=== PATIENT | male | born 1940 | race African-American/Black ===

== ENCOUNTER 2016-07-06 14:59 | Inpatient (IN) | payer OTHER ==
[~2016-07-06] VITALS: Ht 180.3 cm; Wt 103.5 kg
[~2016-07-06 14:59] MED LIST: ALLO300T PO; AMIO200T2 PO; AMLO10TA2 PO; BISA-42 PO; CALC0.25 PO; CARV25TA2 PO; CEFP200T PO; CHOL10002 PO; DEX; DILT120C97 PO; DOXY100T PO; FINA5TAB4 PO; FLUT12AE IH; FOLI1CAP10 PO; FURO40TA4 PO; GLYB5TAB3 PO; GUAI600T38 PO; HYDR-2678 PO; HYDR-2868 PO; INSU100V13 SQ; INSULIN; LOSA100T6 PO; METO25TA4 PO; PARI1CAP PO; POTA10CA PO; SYMBICORT INH; TAMS0.4C2 PO; TERA10CA3 PO; VALS1TAB33 PO; VALS320T2 PO
--- NOTE | 2016-07-06 16:05 | RAD ---
Indication: Syncopal episode today. Technique: Noncontrast CT head was obtained. Comparison is from May 17, 2015. One or more of the following individualized dose reduction techniques were utilized for this examination: 1. Automated exposure control 2. Adjustment of the mA and/or kV according to patient size 3. Use of iterative reconstruction technique Findings: There is a new area of decreased attenuation involving guadalupe and white matter in the right parietal lobe, approximately 2.5 cm in size, suspicious for subacute infarct. There is no hemorrhagic transformation. There is brain parenchymal volume loss and minimal probable small vessel ischemic disease. The ventricles and sulci are within normal limits for age. Paranasal sinuses and mastoid air cells are clear. Report was called to Dr. Quick at 1601 hours. Impression: New area of decreased attenuation in the right prior lobe suspicious for subacute infarct. No evidence of hemorrhagic transformation. This finding is a change from April. Consider MRI.
[2016-07-06 16:11] LABS: BASO % 0 % (0-3); EOS % 8 % (0-3); HEMATOCRIT 42.4 % (39.0-53.0); HEMOGLOBIN 13.3 g/dL (13.0-17.5); LYMPH # 2.4 x10^3/uL (1.0-4.8); LYMPH % 26 % (24-48); MEAN CORPUSCULAR HEMOGLOBIN 24 pg (25-35); MEAN CORPUSCULAR HGB CONC 31 g/dL (31-37); MEAN CORPUSCULAR VOLUME 77 fL (79-100); MONO % 10 % (0-9); NEUT % 56 % (31-73); PLATELET COUNT 235 x10^3/uL (140-400); RED BLOOD COUNT 5.53 x10^6/uL (4.30-5.70); RED CELL DISTRIBUTION WIDTH 20.5 % (11.5-14.5)
--- NOTE | 2016-07-06 16:23 | PHYS DOC ---
Past Medical History Past Medical History: A-Fib, Diabetes-Type II, Heart Disease, Hypertension, Renal Failure Past Surgical History: Pacemaker, Other Additional Past Surgical Histo: RIGHT ARM A/V FISTULA Alcohol Use: None Drug Use: None Adult General Chief Complaint Chief Complaint: SYNCOPE HPI HPI Patient is a 75 year old male brought by ambulance to the ED after what sounds like a syncopal episode at home. Patient was feeling fine and was seated in his living room and he needed to self catheterize, which he commonly does. He seemed to be having trouble, as described by the patient and his , he may have been a bit confused, his hands weren't working right, he couldn't get a hold of the catheter or his penis, he was fumbling around. He decided to go to the bathroom and it sounds like he was able to ambulate with his usual gait to the bathroom and sat on the toilet, again had some trouble with coordination of his hands, his hands were shaking, describes that his eyes rolled back in his head and he was unresponsive. called 911. He also vomited all over himself. Paramedics report initially the patient was unconscious but by the time they were in route, the patient had regained consciousness and reportedly was GCS 14 with mild confusion. Patient states once before, he did have a "insulin coma," but has not had episodes like this otherwise. No history of syncope or seizures. Patient was hospitalized for several weeks, released in March or April, for urosepsis. Patient is a dialysis patient with a fistula in his right arm, he dialyzes on Thursday and Thursday. Yesterday was Thursday and he did go to dialysis and had no complications. Patient reports that prior to having this episode today, his left hand felt itchy but it did not appear to be red or swollen, and it is no longer itchy. He also reports some pain in his left upper arm earlier today and possibly yesterday, his rubbed it. No chest pain. Patient reports a history of atrial fibrillation, he has a pacemaker. PCP Dr. Higgins Urologist Dr. Solo Review of Systems Review of Systems Constitutional: Denies fever or chills [] Eyes: Denies change in visual acuity, redness, or eye pain [] HENT: Denies nasal congestion or sore throat [] Respiratory: Denies cough or shortness of breath [] Cardiovascular: Denies chest pain GI: Denies abdominal pain, nausea, vomiting, bloody stools or diarrhea [] : Denies dysuria or hematuria , as in history of present illness he self catheterizes multiple times a day Musculoskeletal: As in history of present illness Integument: Denies rash or skin lesions [] Neurologic: Denies headache, otherwise as in history of present illness Current Medications Current Medications Current Medications Medications (Trade) Dose Ordered Sig/[place] Start Time Stop Time Status Last Admin Dose Admin Diltiazem HCl (Cardizem 24hr Cd) 240 mg DAILY 07/06/16 19:00 07/06/16 19:05 240 MG Metoprolol Tartrate (Lopressor) 12.5 mg 1X ONCE 07/06/16 18:45 07/06/16 18:48 DC 07/06/16 19:01 12.5 MG Allergies Allergies Allergies Coded Allergies Type Severity Reaction Last Updated Verified sitagliptin Allergy Intermediate Hives 02/27/16 Yes metformin Adverse Reaction Intermediate STOMACH UPSET 02/27/16 Yes Physical Exam Physical Exam Constitutional: Well developed, well nourished, no acute distress, non-toxic appearance. Alert, mentating normally, GCS 15 at the time I visited patient. HENT: Normocephalic, atraumatic, bilateral external ears normal, oropharynx moist, no oral exudates, nose normal. No facial asymmetry. Eyes: conjunctiva normal, no discharge. [] Neck: Normal range of motion, no stridor. [] Cardiovascular:Heart irregularly irregular Lungs & Thorax: Bilateral breath sounds clear to auscultation [] Abdomen: Bowel sounds normal, soft, no tenderness, no masses, no pulsatile masses. [] Skin: Warm, dry, no erythema, no rash. [] Extremities: No tenderness, no cyanosis, no clubbing, ROM intact, no edema. [] Neurologic: Alert and oriented X 3, normal motor function, normal sensory function, no focal deficits noted. Moving both hands without deficit. Current Patient Data Vital Signs Vital Signs Date Time Temp Pulse Resp B/P Pulse Ox O2 Delivery O2 Flow Rate FiO2 07/06/16 19:05 75 155/67 07/06/16 18:49 16 97 07/06/16 18:00 Room Air 07/06/16 15:05 98.8 98.8 Lab Values Laboratory Tests Test 07/06/16 16:00 07/06/16 17:50 White Blood Count 9.0x10^3/uL (4.0-11.0) Red Blood Count 5.53x10^6/uL (4.30-5.70) Hemoglobin 13.3g/dL (13.0-17.5) Hematocrit 42.4% (39.0-53.0) Mean Corpuscular Volume 77fL (79-100) L Mean Corpuscular Hemoglobin 24pg (25-35) L Mean Corpuscular Hemoglobin Concent 31g/dL (31-37) Red Cell Distribution Width 20.5% (11.5-14.5) H Platelet Count 235x10^3/uL (140-400) Neutrophils (%) (Auto) 56% (31-73) Lymphocytes (%) (Auto) 26% (24-48) Monocytes (%) (Auto) 10% (0-9) H Eosinophils (%) (Auto) 8% (0-3) H Basophils (%) (Auto) 0% (0-3) Neutrophils # (Auto) 5.0x10^3uL (1.8-7.7) Lymphocytes # (Auto) 2.4x10^3/uL (1.0-4.8) Monocytes # (Auto) 0.9x10^3/uL (0.0-1.1) Eosinophils # (Auto) 0.7x10^3/uL (0.0-0.7) Basophils # (Auto) 0.0x10^3/uL (0.0-0.2) Platelet Estimate Adequate (ADEQUATE) Hypochromasia Slight Anisocytosis Slight Microcytosis Slight Sodium Level 142mmol/L (136-145) Potassium Level 5.0mmol/L (3.5-5.1) Chloride Level 103mmol/L (98-107) Carbon Dioxide Level 24mmol/L (21-32) Anion Gap 15 (6-14) H Blood Urea Nitrogen 32mg/dL (8-26) H Creatinine 6.5mg/dL (0.7-1.3) H Estimated GFR (Cockcroft-Gault) 10.2 BUN/Creatinine Ratio 5 (6-20) L Glucose Level 171mg/dL (70-99) H Calcium Level 10.0mg/dL (8.5-10.1) Magnesium Level 2.1mg/dL (1.8-2.4) Total Bilirubin 0.3mg/dL (0.2-1.0) Aspartate Amino Transferase (AST) 24U/L (15-37) Alanine Aminotransferase (ALT) 29U/L (16-63) Alkaline Phosphatase 72U/L (46-116) Troponin I Quantitative 0.038ng/mL (0.000-0.055) Total Protein 8.7g/dL (6.4-8.2) H Albumin 3.4g/dL (3.4-5.0) Albumin/Globulin Ratio 0.6 (1.0-1.7) L Urine Collection Type U cath Urine Color Yellow Urine Clarity Cloudy Urine pH 7.5 Urine Specific [place] 1.015 Urine Protein >=300mg/dL (NEG-TRACE) Urine Glucose (UA) 100mg/dL (NEG) Urine Ketones (Stick) Negativemg/dL (NEG) Urine Blood Large (NEG) Urine Nitrite Negative (NEG) Urine Bilirubin Negative (NEG) Urine Urobilinogen Dipstick 0.2mg/dL (0.2 mg/dL) Urine Leukocyte Esterase Large (NEG) Urine RBC 3-5/HPF (0-2) Urine WBC Tntc/HPF (0-4) Urine Squamous Epithelial Cells Many/LPF Urine Transitional Epithelial Cells Occ/LPF Urine Renal Epithelial Cells Occ/LPF Urine Bacteria Few/HPF (0-FEW) Urine Mucus Marked/LPF Laboratory Tests 07/06/16 16:00 Laboratory Tests 07/06/16 16:00 EKG EKG 12-lead EKG read by me. Atrial fibrillation. Heart rate 103. There are no acute ST or T wave changes indicative of ischemia or infarction. Nonspecific interventricular conduction delay with slightly widened QRS. No STEMI. 1506 [] Radiology/Procedures Radiology/Procedures CT scan of the head read by the radiologist. I was called by the radiologist to told me that the patient has a right parietal subacute infarct which could be 12 -36 hours old or up to a week old. This is a new finding compared to April of this year. One view portable chest x-ray read by me. Heart size normal. Lung marquez are clear. No acute cardiopulmonary abnormality. Note is made of the pacemaker. [] Course & Med Decision Making Course & Med Decision Making Pertinent Labs and Imaging studies reviewed. (See chart for details) 75-year-old male, who is diabetic and a dialysis patient, presents by EMS after some type of episode at home where he was completely unresponsive but came around prior to any intervention. Prior to the unresponsive episode he was noted to have possibly confusion and his hands shaking. What is described to me by the patient's does not necessarily sound like a seizure, however that would be in the differential for me. The patient has no recollection of any events prior to the episode, including the episode, and for a period of time after the episode. I discussed with the patient and his that we will get some tests done but likely plan to admit him and he is agreeable to that plan. CT scan of the head read by the radiologist who called me with the results. There is no acute bleed and no acute finding, however, the patient appears to have a right parietal infarct that is subacute, between 12 hours and 1-2 weeks old. Patient remained stable while in the ED with a normal mental status, no seizure activity, no other neurologic complaints. He watched TV with his and was comfortable and stable. Patient also did note that he appears to have bitten his tongue. This new information leads me to think he likely did have a seizure. When I talked some more with the patient and his , the patient's recalled that a few days ago he had an episode where his speech was slurred and thick. It didn't last very long, he took a nap and when he woke up he was better. This may have been the time that the infarct actually occurred. 75-year-old male who had an episode today that initially sounded like a possible syncopal episode but the more information I get I am suspicious of a possible seizure. His CT scan shows a subacute right parietal infarct which could be a seizure focus. At this point he is certainly well outside the window for TPA. He does not even have any active symptoms of a CVA. I discussed the case with Dr. Nails, [facility], who will admit the patient. I wrote bridge orders. [] Dragon Disclaimer Dragon Disclaimer This electronic medical record was generated, in whole or in part, using a voice recognition dictation system. Departure Departure Impression: Primary Impression: Seizure Additional Impression: Stroke Disposition: 09 ADMITTED INPATIENT Admitting Physician: Other Condition: STABLE Referrals: LARRY HIGGINS MD (PCP) Problem Qualifiers CAMILA SAWYER MD Jul 06, 2016 16:23
[2016-07-06 16:25] LABS: CREATININE 6.5 mg/dL (0.7-1.3); GFR 10.2
[2016-07-06 16:30] LABS: PLT ESTIMATE ADEQUATE (ADEQUATE)
[2016-07-06 16:32] LABS: ALBUMIN 3.4 g/dL (3.4-5.0); ALBUMIN/GLOBULIN RATIO 0.6 (1.0-1.7); HYPOCHROMIA SLIGHT; MAGNESIUM 2.1 mg/dL (1.8-2.4); TOTAL BILIRUBIN 0.3 mg/dL (0.2-1.0); TOTAL PROTEIN 8.7 g/dL (6.4-8.2)
[2016-07-06 16:33] LABS: ANISOCYTOSIS SLIGHT; MICROCYTOSIS SLIGHT
--- NOTE | 2016-07-06 16:35 | RAD ---
Indication: Syncopal episode today. Asthma. Technique: Upright portable chest radiograph was obtained. Comparison is from April 11, 2016. Findings: The lungs are clear. The heart is not enlarged. There is no heart failure. Pacemaker is noted. Leads overlie the patient. There is mild elevation of the right hemidiaphragm. Impression: No acute thoracic findings.
[2016-07-06 18:02] LABS: BILIRUBIN,URINE NEGATIVE (NEG); GLUCOSE,URINE 100 mg/dL (NEG); NITRITE,URINE NEGATIVE (NEG); PH,URINE 7.5; PROTEIN,URINE >=300 mg/dL (NEG-TRACE); UROBILINOGEN,URINE 0.2 mg/dL (0.2 mg/dL)
[2016-07-06 18:13] LABS: BACTERIA,URINE FEW /HPF (0-FEW); SQUAMOUS EPITHELIAL CELL,UR MANY /LPF; WBC,URINE TNTC /HPF (0-4)
[2016-07-06] MEDS ORDERED: AMIO200T2 PO (18:39)
[2016-07-06] MEDS ORDERED: POTA20TA4 PO (18:39)
[2016-07-06] MEDS ORDERED: GLYB5TAB3 PO (18:39)
[2016-07-06] MEDS ORDERED: HYDR-2868 PO (18:39)
[2016-07-06] MEDS ORDERED: AMLO10TA2 PO (18:39)
[2016-07-06] MEDS ORDERED: LOSA100T6 PO (18:39)
[2016-07-06] MEDS ORDERED: METOPROLOL TART IMMED RELEASE 25 MG TABLET PO ONE (18:45)
[2016-07-06] MEDS: DILTIAZEM HCL 240 MG CAP.ER.24H PO SCH (19:05)
[2016-07-06 20:29] VITALS: BP 151/76
[2016-07-06] MEDS ORDERED: TAMS0.4C97 PO (21:26)
[2016-07-06] MEDS ORDERED: FINA5TAB PO (21:26)
[2016-07-06] MEDS ORDERED: INSU100V13 SQ (21:26)
[2016-07-06] MEDS ORDERED: ASPI81TA2 PO (21:26)
--- NOTE | 2016-07-06 21:33 | ACF ---
Admit Criteria Forms Admit Criteria Forms Admit Criteria Forms SEIZURE Clinical Indications for Admission to Inpatient Care (Place 'X' for any and all applicable criteria): Admission is indicated for seizure and ANY ONE of the following(1)(2)(3)(4)(5): [ ]I. Inpatient admission required rather than observation care (Also use Seizure: Observation Care Criteria as appropriate) because of ANY ONE of the following: [ ]a) Altered mental status that is severe or persistent [ ]b) New focal neurologic deficit that is severe or persistent [ ]c) Metabolic disorder (eg, hypoglycemia, hyponatremia) that is severe or persistent [ ]d) Recurrent seizure [ ]e) Outpatient antiseizure regimen cannot be established (eg , patient cannot tolerate medication, initiation requires inpatient care) [ ]f) Need for ongoing intravenous infusion of antiseizure medication [ ]g) Cardiac arrhythmias of immediate concern [ ]h) Cerebral bleeding, hydrocephalus, or vasospasm monitoring (14) [ ]i) Increased intracranial pressure or cerebral edema monitoring (15) [ ]j) Other treatment or monitoring requiring inpatient admission [ ]II. Status epilepticus [A] or repetitive seizures not controlled with emergent treatment (6)(8) [ ]III. Brain disorder (eg, tumor, edema, and hydrocephalus) that requiring monitoring or intervention available only at inpatient level of care. [X]IV. Brain insult (eg, severe trauma, stroke, drug toxicity, or withdrawal) that requires monitoring or intervention available only at inpatient level of care (10)(11) Extended stay beyond goal length of stay may be needed for (22) [ ]a) Complications of status epilepticus [ ]b) Refractory status epilepticus [ ]c) Etiology-specific therapy for conditions such as DISCHARGING MACHINE OPERATOR infection, head injury,eclampsia, severe metabolic abnormalities, and brain tumor [ ]d) Residual neurologic damage, [ ]e) Initiation of significant change to anticonvulsant treatment [ ]f) Older patients (65 years or older) [ ]g) Patient requiring intubation (eg, to protect airway) The original [employer] content created by [email or web address] has been revised. The portions of the content which have been revised are identified through the use of italic text or in bold, and [employer] [email or web address] has neither reviewed nor approved the modified material. All other unmodified content is copyright [facility] [employer]. Please see references footnoted in the original [facility] edition 2016 AG FELIX Jul 06, 2016 21:33
[2016-07-06] MEDS ORDERED: DEXTROSE 50% 25 GM / 50ML DISP.SYRIN. IV PRN (21:45)
[2016-07-06] MEDS ORDERED: NON FORMULARY ITEM (Fluticasone Propionate (Flovent 110MCG Hfa) 2 PUFF) IH PRN (22:45)
[2016-07-06] MEDS ORDERED: SYMBICORT INH PRN (22:45)
[2016-07-06] MEDS ORDERED: BENZOCAINE 10% ORAL GEL 7GM TUBE. TP PRN (23:00)
[2016-07-06] MEDS ORDERED: BENZOCAINE 7.5% TP PRN (23:09)
[2016-07-06 23:10] VITALS: BP 160/71
[2016-07-06] MEDS: TAMSULOSIN 0.4 MG CAP.ER.24H. PO SCH (23:15)
[2016-07-06] MEDS ORDERED: ACETAMINOPHEN 325 MG TABLET. PO PRN (23:15)
[2016-07-06] MEDS: METOPROLOL TART IMMED RELEASE 25 MG TABLET PO SCH (23:16)
--- NOTE | 2016-07-07 00:32 | HP ---
ADMIT DATE: 07/06/2016 CHIEF COMPLAINT: Syncope. HISTORY OF PRESENT ILLNESS: The patient is a 75-year-old -[place] gentleman who was with past medical history of end-stage renal disease, atrial fibrillation, who presented via EMS after a syncopal episode at home. His and he relate that he typically self caths several times a day because of urinary retention. He was about to do this when he was rather confused, could not get his hands to work properly. He tried to go to the bathroom to do it, his going with him to help. When he seemed to lose consciousness while sitting on the toilet, eyes rolling back and noted posturing of his right arm. She tried to prop him up and talk to him, he was unresponsive. She called EMS. By the time EMS had him worked up, he was actually responding normally and does remember events from there on out. He apparently bit his tongue during the episode. He vomited copiously. While he initially was reported to be completely obtunded, he came to in the fairing man care and by the time he presented to the Emergency Room, had only mild confusion. This completely resolved spontaneously. Of note, patient actually had been admitted recently for urosepsis. In addition to the symptoms described above, his episode also had an abnormal feeling that he actually recollects in his left arm and hand that he describes as an itch that he just could not get to. He denied any chest pain, any shortness of breath during the episode. PAST MEDICAL HISTORY: CAD, AFib, status post pacer placement, diabetes 2, hypertension, end-stage renal disease, previously on peritoneal dialysis leading to bacteremia, currently on hemodialysis via fistula in right arm. Urinary retention, self cathing for the past year. Being followed by Dr. Solo. FAMILY HISTORY: Positive for diabetes and heart disease. SOCIAL HISTORY: He is and living with his . No toxic habits. ALLERGIES: METFORMIN AND SITAGLIPTIN. MEDICATIONS: MAR reconciled with home medications. REVIEW OF SYSTEMS: Positive as per HPI. Currently, he feels completely normal. All his symptoms have completely resolved including his hand and arm symptoms. Rest of organ system review is negative. He has had 1 or 2 loose bowel movements in the past couple of days, no diarrhea. PHYSICAL EXAMINATION: VITAL SIGNS: Show blood pressure of 151/76, heart rate of 79, respiratory rate at 18. Of note, at time of admission, blood pressure actually had been 171/87 with a pulse of 104. GENERAL: This is an obese, 75-year-old, -[place] gentleman, alert and oriented, in no acute distress. HEENT: Shows no scleral icterus. NECK: Supple, without any lymphadenopathy. LUNGS: Clear to auscultation bilaterally. CARDIOVASCULAR: Slightly irregular. ABDOMEN: Positive bowel sounds, soft, nontender. EXTREMITIES: Showed no edema, no clubbing, no cyanosis. SKIN: Small, soft and dry without any rash. LABORATORY DATA: CBC from today shows WBC of 9.0, hemoglobin 13.3, MCV of 77 with a platelet count of 235. Chemistries with a BUN and creatinine of 32 and 6.5. Electrolytes within normal limits. Glucose at 171. LFTs within normal. Initial troponin is 0.038, albumin at 3.4. Urine with few bacteria, TNTC wbc. RADIOGRAPHIC FINDINGS: Chest x-ray shows mild elevation of the right hemidiaphragm, no acute findings. CT of the head shows a new area of decreased attenuation in the right parietal lobe suspicious for subacute infarct. No evidence of hemorrhagic transformation. Finding is a change from April. ASSESSMENT AND PLAN: The patient is a 75-year-old gentleman with a syncopal finding. Given the MRI with a recent subacute stroke which apparently was unnoticed by the patient and my suspicion is that this is once again neurological, possible TIA as symptoms resolved by the time he arrived in the Emergency Room. However, cannot rule out arrhythmia, possible cardiac etiology of his symptoms either, especially with past medical history. We will rule him out. Unfortunately, secondary to his end-stage renal disease, gadolinium is contraindicated for an MRI. We will discuss with Dr. Hsu from Neurology in the morning if the MRI is indicated without contrast. 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 Blair, of his admission as well for followup. Diabetes, currently seems to be fairly well controlled. We will continue home regimen plus insulin sliding scale. All other medications will be continued as well. He has a routine followup appointment with Dr. Solo in a couple of days. We will let Dr. Solo know of his presence here. Should he be discharged before his appointment, he can follow up on an outpatient basis. ZACH SINGH MD DR: Deena JOB#: [id number] / [id number] SYDNEY
[2016-07-07 03:00] VITALS: BP 141/68
[2016-07-07 05:29] LABS: BASO % 0 % (0-3); EOS % 13 % (0-3); HEMATOCRIT 36.9 % (39.0-53.0); HEMOGLOBIN 11.3 g/dL (13.0-17.5); LYMPH # 2.5 x10^3/uL (1.0-4.8); LYMPH % 27 % (24-48); MEAN CORPUSCULAR HEMOGLOBIN 24 pg (25-35); MEAN CORPUSCULAR HGB CONC 31 g/dL (31-37); MEAN CORPUSCULAR VOLUME 78 fL (79-100); MONO % 13 % (0-9); NEUT % 48 % (31-73); PLATELET COUNT 211 x10^3/uL (140-400); RED BLOOD COUNT 4.72 x10^6/uL (4.30-5.70); RED CELL DISTRIBUTION WIDTH 20.6 % (11.5-14.5); WHITE BLOOD COUNT 9.4 x10^3/uL (4.0-11.0)
[2016-07-07 05:54] LABS: CALCIUM 9.4 mg/dL (8.5-10.1); CREATININE 7.5 mg/dL (0.7-1.3); GFR 8.7; POTASSIUM 4.8 mmol/L (3.5-5.1)
--- NOTE | 2016-07-07 06:07 | EKG ---
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
[2016-07-07 07:00] VITALS: BP 136/67
[2016-07-07] MEDS: INSULIN ASPART 300 UNITS/3 ML INSULN.PEN SQ SCH ×4 (07:30→21:19)
[2016-07-07] MEDS: ALBUTEROL SULFATE 2.5 MG/3 ML NEBU. NEB SCH ×2 (07:53→11:46)
[2016-07-07] MEDS ORDERED: BUDESONIDE 0.5 MG/2 ML NEBU NEB SCH (08:00)
[2016-07-07 08:30] LABS: % BASOS 1 % (0-3); % EOS 10 % (0-5)
[2016-07-07 08:31] LABS: PLT ESTIMATE ADEQUATE (ADEQUATE)
[2016-07-07] MEDS: INSULIN DETEMIR 300 UNITS/3 ML INSULN.PEN. SQ SCH (09:00)
[2016-07-07] MEDS: FUROSEMIDE 40 MG TABLET PO SCH ×2 (09:09→15:58)
[2016-07-07] MEDS: FOLIC/VIT B COMP W-C (RENAL) TABLET. PO SCH (09:10)
[2016-07-07] MEDS: DILTIAZEM HCL 240 MG CAP.ER.24H PO SCH (09:10)
[2016-07-07] MEDS: TAMSULOSIN 0.4 MG CAP.ER.24H. PO SCH ×2 (09:10→21:13)
[2016-07-07] MEDS: ASPIRIN 81 MG TAB.CHEW PO SCH (09:10)
[2016-07-07] MEDS: FINASTERIDE 5 MG TABLET PO SCH (09:11)
[2016-07-07] MEDS: METOPROLOL TART IMMED RELEASE 25 MG TABLET PO SCH ×2 (09:11→21:14)
--- NOTE | 2016-07-07 09:16 | PDOC ---
SUBJECTIVE Subjective Pt. 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, does ISC TID Vital Signs Vital Signs Date Time Temp Pulse Resp B/P Pulse Ox O2 Delivery O2 Flow Rate FiO2 07/07/16 07:50 97 Room Air 07/07/16 07:00 98.2 70 18 136/67 97 Room Air 98.2 07/07/16 03:00 98.2 65 18 141/68 98 Room Air 98.2 07/06/16 23:16 71 160/71 07/06/16 23:10 98.7 71 20 160/71 96 Room Air 98.7 07/06/16 22:11 Room Air 07/06/16 20:29 97.6 79 18 151/76 95 Room Air 97.6 07/06/16 19:49 80 20 161/110 07/06/16 19:19 78 17 162/72 97 07/06/16 19:05 75 155/67 07/06/16 19:01 75 155/67 07/06/16 18:49 78 16 155/67 97 07/06/16 18:19 88 26 195/80 07/06/16 18:00 80 18 145/67 97 Room Air 07/06/16 17:19 84 18 154/67 97 Room Air 07/06/16 16:32 82 20 180/85 96 Room Air 07/06/16 16:19 72 20 173/92 96 Room Air 07/06/16 15:49 80 20 162/72 96 Room Air 07/06/16 15:05 98.8 104 20 171/87 97 Room Air 98.8 I & O Intake and Output 07/07/16 07:00 Intake Total 360 ml Output Total 50 ml Balance 310 ml Intake Oral 240 ml Tube Feeding 120 ml Output Urine Total 50 ml # Voids 1 PHYSICAL EXAM Physical Exam testes descended bilat, DOC-30 gms, smooth ASSESSMENT/PLAN Assessment/Plan Continue flomax and finasteride Continue ISC TID F/U urology 3 months Problems: COMMENT Lab Laboratory Tests Test 07/06/16 16:00 07/06/16 17:50 07/06/16 20:50 07/07/16 04:40 White Blood Count 9.0x10^3/uL (4.0-11.0) 9.4x10^3/uL (4.0-11.0) Red Blood Count 5.53x10^6/uL (4.30-5.70) 4.72x10^6/uL (4.30-5.70) Hemoglobin 13.3g/dL (13.0-17.5) 11.3g/dL (13.0-17.5) Hematocrit 42.4% (39.0-53.0) 36.9% (39.0-53.0) Mean Corpuscular Volume 77fL (79-100) 78fL (79-100) Mean Corpuscular Hemoglobin 24pg (25-35) 24pg (25-35) Mean Corpuscular Hemoglobin Concent 31g/dL (31-37) 31g/dL (31-37) Red Cell Distribution Width 20.5% (11.5-14.5) 20.6% (11.5-14.5) Platelet Count 235x10^3/uL (140-400) 211x10^3/uL (140-400) Neutrophils (%) (Auto) 56% (31-73) 48% (31-73) Lymphocytes (%) (Auto) 26% (24-48) 27% (24-48) Monocytes (%) (Auto) 10% (0-9) 13% (0-9) Eosinophils (%) (Auto) 8% (0-3) 13% (0-3) Basophils (%) (Auto) 0% (0-3) 0% (0-3) Neutrophils # (Auto) 5.0x10^3uL (1.8-7.7) 4.5x10^3uL (1.8-7.7) Lymphocytes # (Auto) 2.4x10^3/uL (1.0-4.8) 2.5x10^3/uL (1.0-4.8) Monocytes # (Auto) 0.9x10^3/uL (0.0-1.1) 1.2x10^3/uL (0.0-1.1) Eosinophils # (Auto) 0.7x10^3/uL (0.0-0.7) 1.2x10^3/uL (0.0-0.7) Basophils # (Auto) 0.0x10^3/uL (0.0-0.2) 0.0x10^3/uL (0.0-0.2) Platelet Estimate Adequate (ADEQUATE) Hypochromasia Slight Anisocytosis Slight Microcytosis Slight Sodium Level 142mmol/L (136-145) 145mmol/L (136-145) Potassium Level 5.0mmol/L (3.5-5.1) 4.8mmol/L (3.5-5.1) Chloride Level 103mmol/L (98-107) 106mmol/L (98-107) Carbon Dioxide Level 24mmol/L (21-32) 26mmol/L (21-32) Anion Gap 15 (6-14) 13 (6-14) Blood Urea Nitrogen 32mg/dL (8-26) 37mg/dL (8-26) Creatinine 6.5mg/dL (0.7-1.3) 7.5mg/dL (0.7-1.3) Estimated GFR (Cockcroft-Gault) 10.2 8.7 BUN/Creatinine Ratio 5 (6-20) Glucose Level 171mg/dL (70-99) 143mg/dL (70-99) Calcium Level 10.0mg/dL (8.5-10.1) 9.4mg/dL (8.5-10.1) Magnesium Level 2.1mg/dL (1.8-2.4) Total Bilirubin 0.3mg/dL (0.2-1.0) Aspartate Amino Transf (AST/SGOT) 24U/L (15-37) Alanine Aminotransferase (ALT/SGPT) 29U/L (16-63) Alkaline Phosphatase 72U/L (46-116) Troponin I Quantitative 0.038ng/mL (0.000-0.055) 0.080ng/mL (0.000-0.055) Total Protein 8.7g/dL (6.4-8.2) Albumin 3.4g/dL (3.4-5.0) Albumin/Globulin Ratio 0.6 (1.0-1.7) Urine Collection Type U cath Urine Color Yellow Urine Clarity Cloudy Urine pH 7.5 Urine Specific [place] 1.015 Urine Protein >=300mg/dL (NEG-TRACE) Urine Glucose (UA) 100mg/dL (NEG) Urine Ketones (Stick) Negativemg/dL (NEG) Urine Blood Large (NEG) Urine Nitrite Negative (NEG) Urine Bilirubin Negative (NEG) Urine Urobilinogen Dipstick 0.2mg/dL (0.2 mg/dL) Urine Leukocyte Esterase Large (NEG) Urine RBC 3-5/HPF (0-2) Urine WBC Tntc/HPF (0-4) Urine Squamous Epithelial Cells Many/LPF Urine Transitional Epithelial Cells Occ/LPF Urine Renal Epithelial Cells Occ/LPF Urine Bacteria Few/HPF (0-FEW) Urine Mucus Marked/LPF Glucose (Fingerstick) 110mg/dL (70-99) Test 07/07/16 07:35 07/07/16 08:08 Glucose (Fingerstick) 125mg/dL (70-99) 119mg/dL (70-99) NOLBERTO THOMPSON MD Jul 07, 2016 09:16
[2016-07-07 09:38] LABS: ANISOCYTOSIS MOD; HYPOCHROMIA SLIGHT; MICROCYTOSIS PRESENT; OVALOCYTES FEW
--- NOTE | 2016-07-07 10:08 | PDOC2 ---
XUANDIAMOND SAAVEDRA DIRECT MARKETING MANAGER 07/07/16 1008: CARDIAC CONSULT DATE OF CONSULT Date of Consult DATE: 07/07/16 TIME: 10:07 REASON FOR CONSULT Reason for Consult: syncope REFERRING PHYSICIAN Referring Physician: Dr. Roya Nails SOURCE Source: Caregiver (), Chart review, Patient HISTORY OF PRESENT ILLNESS HISTORY OF PRESENT ILLNESS 75 year old male who was seated on toilet yesterday after breakfast and was to self-cath for known urinary retention when he became confused regarding the steps/skills for the task. Also noted tingling/itching in his left hand. He remembers his talking to him. ? of seizure as eyes rolled back and patient bit his tongue. CT scan of brain demonstrating new area in the right parietal area. Patient denies associated chest pain or dyspnea. No recurrence of symptoms since hospitalized. No previous similar symptoms. Initial troponin levels not consistent with AMI and associated with Cr of 7.5. EKG with atrial fibrillation with controlled ventricular rate. Hypertensive with BP of 180/85. Reason for Visit: syncope PAST MEDICAL HISTORY Cardiovascular: AFIB, CAD (?), HTN, Hyperlipidemia, Other (tachybrady, 2nd degree AVB, type II; Biotronik dual chamber PPM - NOT MRI COMPATIBLE) GI: GI bleed (due to duodenal ulcer treated wtih endotherapy) Musculoskeletal: Osteoarthritis Renal/: Chronic renal failure (with hemodialysis), Other (urinary retention with self-catheterization ) Endocrine: Diabetes (type II) PAST SURGICAL HISTORY Past Surgical History: Pacemaker (dual chamber Biotronik), Other (implant/ explant peritoneal dialysis catheter; right AV fistula) FAMILY HISTORY Family History: Diabetes SOCIAL HISTORY Smoke: No ALCOHOL: none Drugs: None Lives: with Family () CURRENT MEDICATIONS CURRENT MEDICATIONS Current Medications Medications (Trade) Dose Ordered Sig/[place] Route PRN Reason Start Time Stop Time Status Last Admin Dose Admin Diltiazem HCl (Cardizem 24hr Cd) 240 mg DAILY PO 07/06/16 19:00 07/07/16 09:10 Metoprolol Tartrate (Lopressor) 12.5 mg 1X ONCE PO 07/06/16 18:45 07/06/16 18:48 DC 07/06/16 19:01 Aspirin (Children'S Aspirin) 81 mg DAILY PO 07/07/16 09:00 07/07/16 09:10 Finasteride (Proscar) 10 mg DAILY PO 07/07/16 09:00 07/07/16 09:11 Furosemide (Lasix) 40 mg [id number] PO 07/07/16 09:00 07/07/16 09:09 Metoprolol Tartrate (Lopressor) 12.5 mg BID PO 07/06/16 23:00 07/07/16 09:11 Tamsulosin HCl (Flomax) 0.4 mg BID PO 07/06/16 23:00 07/07/16 09:10 Vitamin B Complex/ Vitamin C (Nephro-Jeanmarie) 1 tab DAILY PO 07/07/16 09:00 07/07/16 09:10 Benzocaine (Ora-Jel Baby) 1 antwon PRN QID PRN TP ORAL PAIN 07/06/16 23:09 07/06/16 23:16 ALLERGIES ALLERGIES: Coded Allergies: sitagliptin (Verified Allergy, Intermediate, Hives, 02/27/16) metformin (Verified Adverse Reaction, Intermediate, STOMACH UPSET, 02/27/16 ) ROS Review of System 14 point review with pertinent positives in HPI PHYSICAL EXAM General: Alert, Oriented X3, Cooperative, No acute distress HEENT: Atraumatic, PERRLA Lungs: Clear to auscultation Heart: Regular rate, Normal S1, Normal S2, No murmurs, Other (PPM left pectoral region well healed) Abdomen: Normal bowel sounds, Soft Extremities: No edema, Normal pulses Skin: No rashes Neuro: Normal speech Psych/Mental Status: Mental status NL, Mood NL MUSCULOSKELETAL: Osteoarthritic changes both hands VITALS VITALS Vital Signs Date Time Temp Pulse Resp B/P Pulse Ox O2 Delivery O2 Flow Rate FiO2 07/07/16 09:11 70 136/67 07/07/16 08:00 Room Air 07/07/16 07:50 97 07/07/16 07:00 98.2 18 98.2 LABS Lab: Laboratory Tests Test 07/06/16 16:00 07/06/16 17:50 07/06/16 20:50 07/07/16 04:40 White Blood Count 9.0x10^3/uL (4.0-11.0) 9.4x10^3/uL (4.0-11.0) Red Blood Count 5.53x10^6/uL (4.30-5.70) 4.72x10^6/uL (4.30-5.70) Hemoglobin 13.3g/dL (13.0-17.5) 11.3g/dL (13.0-17.5) Hematocrit 42.4% (39.0-53.0) 36.9% (39.0-53.0) Mean Corpuscular Volume 77fL (79-100) 78fL (79-100) Mean Corpuscular Hemoglobin 24pg (25-35) 24pg (25-35) Mean Corpuscular Hemoglobin Concent 31g/dL (31-37) 31g/dL (31-37) Red Cell Distribution Width 20.5% (11.5-14.5) 20.6% (11.5-14.5) Platelet Count 235x10^3/uL (140-400) 211x10^3/uL (140-400) Neutrophils (%) (Auto) 56% (31-73) 48% (31-73) Lymphocytes (%) (Auto) 26% (24-48) 27% (24-48) Monocytes (%) (Auto) 10% (0-9) 13% (0-9) Eosinophils (%) (Auto) 8% (0-3) 13% (0-3) Basophils (%) (Auto) 0% (0-3) 0% (0-3) Neutrophils # (Auto) 5.0x10^3uL (1.8-7.7) 4.5x10^3uL (1.8-7.7) Lymphocytes # (Auto) 2.4x10^3/uL (1.0-4.8) 2.5x10^3/uL (1.0-4.8) Monocytes # (Auto) 0.9x10^3/uL (0.0-1.1) 1.2x10^3/uL (0.0-1.1) Eosinophils # (Auto) 0.7x10^3/uL (0.0-0.7) 1.2x10^3/uL (0.0-0.7) Basophils # (Auto) 0.0x10^3/uL (0.0-0.2) 0.0x10^3/uL (0.0-0.2) Platelet Estimate Adequate (ADEQUATE) Adequate (ADEQUATE) Hypochromasia Slight Slight Anisocytosis Slight Mod Microcytosis Slight Present Sodium Level 142mmol/L (136-145) 145mmol/L (136-145) Potassium Level 5.0mmol/L (3.5-5.1) 4.8mmol/L (3.5-5.1) Chloride Level 103mmol/L (98-107) 106mmol/L (98-107) Carbon Dioxide Level 24mmol/L (21-32) 26mmol/L (21-32) Anion Gap 15 (6-14) 13 (6-14) Blood Urea Nitrogen 32mg/dL (8-26) 37mg/dL (8-26) Creatinine 6.5mg/dL (0.7-1.3) 7.5mg/dL (0.7-1.3) Estimated GFR (Cockcroft-Gault) 10.2 8.7 BUN/Creatinine Ratio 5 (6-20) Glucose Level 171mg/dL (70-99) 143mg/dL (70-99) Calcium Level 10.0mg/dL (8.5-10.1) 9.4mg/dL (8.5-10.1) Magnesium Level 2.1mg/dL (1.8-2.4) Total Bilirubin 0.3mg/dL (0.2-1.0) Aspartate Amino Transf (AST/SGOT) 24U/L (15-37) Alanine Aminotransferase (ALT/SGPT) 29U/L (16-63) Alkaline Phosphatase 72U/L (46-116) Troponin I Quantitative 0.038ng/mL (0.000-0.055) 0.080ng/mL (0.000-0.055) Total Protein 8.7g/dL (6.4-8.2) Albumin 3.4g/dL (3.4-5.0) Albumin/Globulin Ratio 0.6 (1.0-1.7) Urine Collection Type U cath Urine Color Yellow Urine Clarity Cloudy Urine pH 7.5 Urine Specific [place] 1.015 Urine Protein >=300mg/dL (NEG-TRACE) Urine Glucose (UA) 100mg/dL (NEG) Urine Ketones (Stick) Negativemg/dL (NEG) Urine Blood Large (NEG) Urine Nitrite Negative (NEG) Urine Bilirubin Negative (NEG) Urine Urobilinogen Dipstick 0.2mg/dL (0.2 mg/dL) Urine Leukocyte Esterase Large (NEG) Urine RBC 3-5/HPF (0-2) Urine WBC Tntc/HPF (0-4) Urine Squamous Epithelial Cells Many/LPF Urine Transitional Epithelial Cells Occ/LPF Urine Renal Epithelial Cells Occ/LPF Urine Bacteria Few/HPF (0-FEW) Urine Mucus Marked/LPF Glucose (Fingerstick) 110mg/dL (70-99) Segmented Neutrophils % 60% (35-66) Lymphocytes % 17% (24-48) Atypical Lymphocytes % (Manual) 1% (0-0) Monocytes % 11% (0-10) Eosinophils % 10% (0-5) Basophils % 1% (0-3) Ovalocytes Few Test 07/07/16 07:35 07/07/16 08:08 Glucose (Fingerstick) 125mg/dL (70-99) 119mg/dL (70-99) IMAGES IMAGES CXR: 07/06/2016: Findings: The lungs are clear. The heart is not enlarged. There is no heart failure. Pacemaker is noted. Leads overlie the patient. There is mild elevation of the right hemidiaphragm. Impression: No acute thoracic findings. CT head: 07/06/2016 Findings: There is a new area of decreased attenuation involving guadalupe and white matter in the right parietal lobe, approximately 2.5 cm in size, suspicious for subacute infarct. There is no hemorrhagic transformation. There is brain parenchymal volume loss and minimal probable small vessel ischemic disease. The ventricles and sulci are within normal limits for age. Paranasal sinuses and mastoid air cells are clear. Report was called to Dr. Quick at 1601 hours. Impression: New area of decreased attenuation in the right prior lobe suspicious for subacute infarct. No evidence of hemorrhagic transformation. This finding is a change from April. Consider MRI. EKG EKG atrial fib, rate controlled, no acute changes ECHOCARDIOGRAM ECHOCARDIOGRAM 02/19/2016: SANTIAGO: Technically difficult study. The left ventricle is normal size. The left ventricular systolic function is normal and the ejection fraction is within normal range. The Ejection Fraction is 55-60%. There is mild concentric left ventricular hypertrophy. There is no significant aortic valvular stenosis. Doppler and Color Flow revealed no significant aortic regurgitation. Doppler and Color Flow revealed trace mitral regurgitation. Doppler and Color Flow revealed trace tricuspid valve regurgitation. ASSESSMENT/PLAN ASSESSMENT/PLAN 1. atrial fibrillation/tachydysrhythmias dual chamber PPM - Biotronik - NOT MRI COMPATIBLE interrogation PPM - has had high afib burdens in the past [id number] = 5 now; high risk for stroke; OAC stopped 2014 after duodenal ulcer bleed and was treated by GI and has been on only ASA 81 mg since then- ? resume OAC echo to evaluate for clot 2. subacute right parietal stroke ? due to atrial fib per Neuro 3. HTN improved control 4. ESRD with HD per nephrology PPM interrogation: atrial fib burden since 02/18/2016 of 61%; has been in atrial fib 100% of the time for at least the last week Will increase BB in effort to control rate; also on diltiazem GI consult to determine if OAC can be resumed Problems: ELENA REYNOLDS MD 07/07/16 1646: CARDIAC CONSULT ALLERGIES ALLERGIES: Coded Allergies: sitagliptin (Verified Allergy, Intermediate, Hives, 02/27/16) metformin (Verified Adverse Reaction, Intermediate, STOMACH UPSET, 02/27/16 ) ASSESSMENT/PLAN ASSESSMENT/PLAN Patient seen and examined. Agree with POST DOCTORAL FELLOW's assessment and plan. Patient with right acute parietal stroke probably embolic. Continue workup per neurology team. Pacemaker interrogation showed significant atrial fibrillation burden. Agree with increasing beta marietta dose for better rate control. If okay with gastroenterology team, we will initiate oral and a combination followed by antiarrhythmic therapy. 2-D echo showed normal LV systolic function. Continue hemodialysis per nephrology team. Thank you for your consultation. Problems: DIAMOND CHAMBERS APRN Jul 07, 2016 10:08 ELENA REYNOLDS MD Jul 07, 2016 16:46
[2016-07-07 11:00] VITALS: BP 144/67
--- NOTE | 2016-07-07 11:22 | PDOC2 ---
CONSULT Date of Consult Date of Consult DATE: 07/07/16 TIME: 11:20 Reason for Consult Reason for Consult: ESRD Referring Physician Referring Physician: Dr Nails Identification/Chief Complaint Chief Complaint ? SZ vs Syncope Problems: Source Source: Chart review, Patient History of Present Illness Reason for Visit: as dictated Past Medical History Cardiovascular: AFIB, HTN, Hyperlipidemia, Other Pulmonary: No pertinent hx CENTRAL NERVOUS SYSTEM: Periperal neuropathy GI: Diverticulosis, GI bleed, Peptic Ulcer disease Heme/Onc: Anemia NOS Psych: Anxiety, Depression Musculoskeletal: Osteoarthritis Renal/: Chronic renal failure, Benign prostatic enlarg. Endocrine: Diabetes, Hyperparathyroidism Past Surgical History Past Surgical History: Other Family History Family History: Diabetes, Hypertension Social History ALCOHOL: none Drugs: None Lives: with Family Domestic Violence: Neg Current Problem List Problem List Problems Medical Problems: (1) Seizure Status: Acute (2) Stroke Status: Acute Current Medications Current Medications Current Medications Diltiazem HCl (Cardizem 24hr Cd) 240 mg DAILY PO Last administered on 09:10; Start 07/06/16 at 19:00 Metoprolol Tartrate (Lopressor) 12.5 mg 1X ONCE PO Last administered on 19:01; Start 07/06/16 at 18:45; Stop 07/06/16 at 18:48; Status DC Insulin Aspart (Novolog) 0-9 UNITS TIDACHC SQ ; Start 07/07/16 at 07:30 Dextrose 12.5 gm PRN Q15MIN PRN IV SEE COMMENTS; Start 07/06/16 at 21:45 Aspirin (Children'S Aspirin) 81 mg DAILY PO Last administered on 07/07/16 09: 10; Start 07/07/16 at 09:00 Finasteride (Proscar) 10 mg DAILY PO Last administered on 07/07/16 09:11; Start 07/07/16 at 09:00 Furosemide (Lasix) 40 mg BID94 PO Last administered on 07/07/16 09:09; Start 07/07/16 at 09:00 Metoprolol Tartrate (Lopressor) 12.5 mg BID PO Last administered on 07/07/16 09:11; Start 07/06/16 at 23:00 Tamsulosin HCl (Flomax) 0.4 mg BID PO Last administered on 3/20/17at 09:10; Start 07/06/16 at 23:00 Non-Formulary Medication 2 puff PRN PRN IH WHEEZING; Start 07/06/16 at 22:45; Status UNV Vitamin B Complex/ Vitamin C (Nephro-Jeanmarie) 1 tab DAILY PO Last administered on 07/07/16 09:10; Start 07/07/16 at 09:00 Insulin Detemir (Levemir) 30 units DAILY SQ ; Start 07/07/16 at 09:00 Non-Formulary Medication 2 puff PRN BID PRN INH SHORTNESS OF BREATH; Start at 22:45; Status UNV Albuterol Sulfate (Ventolin Neb Soln) 2.5 mg RTQID NEB ; Start 07/07/16 at 08:00 Budesonide (Pulmicort) 0.5 mg RTBID NEB ; Start 07/07/16 at 08:00 Benzocaine (Ora-Jel) 1 antwon PRN QID PRN TP ORAL PAIN; Start 07/06/16 at 23:00; Stop 07/06/16 at 23:09; Status DC Acetaminophen (Tylenol) 650 mg PRN Q6HRS PRN PO MILD PAIN / TEMP; Start at 23:15 Benzocaine (Ora-Jel Baby) 1 antwon PRN QID PRN TP ORAL PAIN Last administered on 23:16; Start 07/06/16 at 23:09 Active Scripts Active Metoprolol Tartrate 25 Mg Tablet 12.5 Mg PO BID Reported Aspirin 81 Mg Tab.chew 1 Tab PO DAILY Levemir (Insulin Detemir) 100 Unit/1 Ml Vial 30 Unit SQ DAILY Proscar (Finasteride) 5 Mg Tablet 2 Tab PO DAILY Flomax (Tamsulosin Hcl) 0.4 Mg Cap.er.24h 1 Cap PO BID [insulin w/dex] Furosemide 40 Mg Tablet 40 Mg PO BID [Symbicort] 2 Puff INH PRN BID PRN Flovent 110MCG Hfa (Fluticasone Propionate) 12 Gm Aer.w.adap 2 Puff IH PRN PRN Renal Caps Softgel (Folic Acid/Vitamin B Comp W-C) 1 Mg Capsule 1 Cap PO DAILY Allergies Allergies: Coded Allergies: sitagliptin (Verified Allergy, Intermediate, Hives, 02/27/16) metformin (Verified Adverse Reaction, Intermediate, STOMACH UPSET, 02/27/16 ) ROS Review of System GEN: no Fevers no Chills EYES: no new Visual Complaints ENT: no EN Drainage no Hearing deficiets CVS: no Orthopnea no CP RESP: no SOB no RAMIREZ GI: no Nausea no Vomiting : no Dysuria no Urgency ISC HEME: no easy bruising no Palp Ly Nodes NEURO no Focal Weakness ? Sz vs SSyncope/ CVA PSYCH: no Suicidal Ideation no Depression SKIN: no Rashes ENDO: no Polyuria or Polydipsia no Hot/Cold Intolerance MU SK: [ ] Arthraigia [ ] Myalgia Physical Exam Physical Exam General Appearance: Awake Alert Oriented x 3 In no Distress Eyes: VIsion Unchanged Conjunctiva Normal EN: No EN Drainage Mucous Memb. moist Neck: no JVD no JVP Supple no Thyromegaly CVS: S1 S2 soft Murmur No Gallop No Rub no Edema Resp: no Rales no Rhonchi no Acc. Muscle use GI: BAS +ve NO Bruit Non Tender Non Distended : no CVA tenderness; no Suprapubic Tenderness SKIN: no Rashes Breast Exam deferred Mu.Sk: Adequate ROM no Muscle Atrophy Heme: Unable to palpate Obvious LAD no palp Splenomegaly NEURO: Good Strength and Tone Cranial Nerves II - XII grossly intact Psych: not Depressed no Active hallucination Vital Signs Vital Signs Date Time Temp Pulse Resp B/P Pulse Ox O2 Delivery O2 Flow Rate FiO2 07/07/16 09:11 70 136/67 07/07/16 08:00 Room Air 07/07/16 07:50 97 07/07/16 07:00 98.2 18 98.2 Assessment & Plan ESRD: Current FLuid and E-lyte status does not necessitate emergent need for Dialysis. Will re-evaluate for Dialysis in am and continue on TTSat schedule. Microcytic Anemia: Epogen will be ordered if hgb < 11. Transfuse with next HD as needed. HTN: Malignant OA; now better controlled. Current BP meds reviewed. See orders for changes. Bone & Mineral: follow phos and alter binder regimen as needed Discussed Plan of Care and prognosis etc. at length with family () Labs Labs Laboratory Tests Test 07/06/16 16:00 07/06/16 17:50 07/06/16 20:50 07/07/16 04:40 White Blood Count 9.0x10^3/uL (4.0-11.0) 9.4x10^3/uL (4.0-11.0) Red Blood Count 5.53x10^6/uL (4.30-5.70) 4.72x10^6/uL (4.30-5.70) Hemoglobin 13.3g/dL (13.0-17.5) 11.3g/dL (13.0-17.5) Hematocrit 42.4% (39.0-53.0) 36.9% (39.0-53.0) Mean Corpuscular Volume 77fL (79-100) 78fL (79-100) Mean Corpuscular Hemoglobin 24pg (25-35) 24pg (25-35) Mean Corpuscular Hemoglobin Concent 31g/dL (31-37) 31g/dL (31-37) Red Cell Distribution Width 20.5% (11.5-14.5) 20.6% (11.5-14.5) Platelet Count 235x10^3/uL (140-400) 211x10^3/uL (140-400) Neutrophils (%) (Auto) 56% (31-73) 48% (31-73) Lymphocytes (%) (Auto) 26% (24-48) 27% (24-48) Monocytes (%) (Auto) 10% (0-9) 13% (0-9) Eosinophils (%) (Auto) 8% (0-3) 13% (0-3) Basophils (%) (Auto) 0% (0-3) 0% (0-3) Neutrophils # (Auto) 5.0x10^3uL (1.8-7.7) 4.5x10^3uL (1.8-7.7) Lymphocytes # (Auto) 2.4x10^3/uL (1.0-4.8) 2.5x10^3/uL (1.0-4.8) Monocytes # (Auto) 0.9x10^3/uL (0.0-1.1) 1.2x10^3/uL (0.0-1.1) Eosinophils # (Auto) 0.7x10^3/uL (0.0-0.7) 1.2x10^3/uL (0.0-0.7) Basophils # (Auto) 0.0x10^3/uL (0.0-0.2) 0.0x10^3/uL (0.0-0.2) Platelet Estimate Adequate (ADEQUATE) Adequate (ADEQUATE) Hypochromasia Slight Slight Anisocytosis Slight Mod Microcytosis Slight Present Sodium Level 142mmol/L (136-145) 145mmol/L (136-145) Potassium Level 5.0mmol/L (3.5-5.1) 4.8mmol/L (3.5-5.1) Chloride Level 103mmol/L (98-107) 106mmol/L (98-107) Carbon Dioxide Level 24mmol/L (21-32) 26mmol/L (21-32) Anion Gap 15 (6-14) 13 (6-14) Blood Urea Nitrogen 32mg/dL (8-26) 37mg/dL (8-26) Creatinine 6.5mg/dL (0.7-1.3) 7.5mg/dL (0.7-1.3) Estimated GFR (Cockcroft-Gault) 10.2 8.7 BUN/Creatinine Ratio 5 (6-20) Glucose Level 171mg/dL (70-99) 143mg/dL (70-99) Calcium Level 10.0mg/dL (8.5-10.1) 9.4mg/dL (8.5-10.1) Magnesium Level 2.1mg/dL (1.8-2.4) Total Bilirubin 0.3mg/dL (0.2-1.0) Aspartate Amino Transf (AST/SGOT) 24U/L (15-37) Alanine Aminotransferase (ALT/SGPT) 29U/L (16-63) Alkaline Phosphatase 72U/L (46-116) Troponin I Quantitative 0.038ng/mL (0.000-0.055) 0.080ng/mL (0.000-0.055) Total Protein 8.7g/dL (6.4-8.2) Albumin 3.4g/dL (3.4-5.0) Albumin/Globulin Ratio 0.6 (1.0-1.7) Urine Collection Type U cath Urine Color Yellow Urine Clarity Cloudy Urine pH 7.5 Urine Specific [place] 1.015 Urine Protein >=300mg/dL (NEG-TRACE) Urine Glucose (UA) 100mg/dL (NEG) Urine Ketones (Stick) Negativemg/dL (NEG) Urine Blood Large (NEG) Urine Nitrite Negative (NEG) Urine Bilirubin Negative (NEG) Urine Urobilinogen Dipstick 0.2mg/dL (0.2 mg/dL) Urine Leukocyte Esterase Large (NEG) Urine RBC 3-5/HPF (0-2) Urine WBC Tntc/HPF (0-4) Urine Squamous Epithelial Cells Many/LPF Urine Transitional Epithelial Cells Occ/LPF Urine Renal Epithelial Cells Occ/LPF Urine Bacteria Few/HPF (0-FEW) Urine Mucus Marked/LPF Glucose (Fingerstick) 110mg/dL (70-99) Segmented Neutrophils % 60% (35-66) Lymphocytes % 17% (24-48) Atypical Lymphocytes % (Manual) 1% (0-0) Monocytes % 11% (0-10) Eosinophils % 10% (0-5) Basophils % 1% (0-3) Ovalocytes Few Test 07/07/16 07:35 07/07/16 08:08 Glucose (Fingerstick) 125mg/dL (70-99) 119mg/dL (70-99) Laboratory Tests Test 07/06/16 16:00 07/06/16 17:50 07/06/16 20:50 07/07/16 04:40 White Blood Count 9.0x10^3/uL (4.0-11.0) 9.4x10^3/uL (4.0-11.0) Red Blood Count 5.53x10^6/uL (4.30-5.70) 4.72x10^6/uL (4.30-5.70) Hemoglobin 13.3g/dL (13.0-17.5) 11.3g/dL (13.0-17.5) Hematocrit 42.4% (39.0-53.0) 36.9% (39.0-53.0) Mean Corpuscular Volume 77fL (79-100) 78fL (79-100) Mean Corpuscular Hemoglobin 24pg (25-35) 24pg (25-35) Mean Corpuscular Hemoglobin Concent 31g/dL (31-37) 31g/dL (31-37) Red Cell Distribution Width 20.5% (11.5-14.5) 20.6% (11.5-14.5) Platelet Count 235x10^3/uL (140-400) 211x10^3/uL (140-400) Neutrophils (%) (Auto) 56% (31-73) 48% (31-73) Lymphocytes (%) (Auto) 26% (24-48) 27% (24-48) Monocytes (%) (Auto) 10% (0-9) 13% (0-9) Eosinophils (%) (Auto) 8% (0-3) 13% (0-3) Basophils (%) (Auto) 0% (0-3) 0% (0-3) Neutrophils # (Auto) 5.0x10^3uL (1.8-7.7) 4.5x10^3uL (1.8-7.7) Lymphocytes # (Auto) 2.4x10^3/uL (1.0-4.8) 2.5x10^3/uL (1.0-4.8) Monocytes # (Auto) 0.9x10^3/uL (0.0-1.1) 1.2x10^3/uL (0.0-1.1) Eosinophils # (Auto) 0.7x10^3/uL (0.0-0.7) 1.2x10^3/uL (0.0-0.7) Basophils # (Auto) 0.0x10^3/uL (0.0-0.2) 0.0x10^3/uL (0.0-0.2) Platelet Estimate Adequate (ADEQUATE) Adequate (ADEQUATE) Hypochromasia Slight Slight Anisocytosis Slight Mod Microcytosis Slight Present Sodium Level 142mmol/L (136-145) 145mmol/L (136-145) Potassium Level 5.0mmol/L (3.5-5.1) 4.8mmol/L (3.5-5.1) Chloride Level 103mmol/L (98-107) 106mmol/L (98-107) Carbon Dioxide Level 24mmol/L (21-32) 26mmol/L (21-32) Anion Gap 15 (6-14) 13 (6-14) Blood Urea Nitrogen 32mg/dL (8-26) 37mg/dL (8-26) Creatinine 6.5mg/dL (0.7-1.3) 7.5mg/dL (0.7-1.3) Estimated GFR (Cockcroft-Gault) 10.2 8.7 BUN/Creatinine Ratio 5 (6-20) Glucose Level 171mg/dL (70-99) 143mg/dL (70-99) Calcium Level 10.0mg/dL (8.5-10.1) 9.4mg/dL (8.5-10.1) Magnesium Level 2.1mg/dL (1.8-2.4) Total Bilirubin 0.3mg/dL (0.2-1.0) Aspartate Amino Transf (AST/SGOT) 24U/L (15-37) Alanine Aminotransferase (ALT/SGPT) 29U/L (16-63) Alkaline Phosphatase 72U/L (46-116) Troponin I Quantitative 0.038ng/mL (0.000-0.055) 0.080ng/mL (0.000-0.055) Total Protein 8.7g/dL (6.4-8.2) Albumin 3.4g/dL (3.4-5.0) Albumin/Globulin Ratio 0.6 (1.0-1.7) Urine Collection Type U cath Urine Color Yellow Urine Clarity Cloudy Urine pH 7.5 Urine Specific [place] 1.015 Urine Protein >=300mg/dL (NEG-TRACE) Urine Glucose (UA) 100mg/dL (NEG) Urine Ketones (Stick) Negativemg/dL (NEG) Urine Blood Large (NEG) Urine Nitrite Negative (NEG) Urine Bilirubin Negative (NEG) Urine Urobilinogen Dipstick 0.2mg/dL (0.2 mg/dL) Urine Leukocyte Esterase Large (NEG) Urine RBC 3-5/HPF (0-2) Urine WBC Tntc/HPF (0-4) Urine Squamous Epithelial Cells Many/LPF Urine Transitional Epithelial Cells Occ/LPF Urine Renal Epithelial Cells Occ/LPF Urine Bacteria Few/HPF (0-FEW) Urine Mucus Marked/LPF Glucose (Fingerstick) 110mg/dL (70-99) Segmented Neutrophils % 60% (35-66) Lymphocytes % 17% (24-48) Atypical Lymphocytes % (Manual) 1% (0-0) Monocytes % 11% (0-10) Eosinophils % 10% (0-5) Basophils % 1% (0-3) Ovalocytes Few Test 07/07/16 07:35 07/07/16 08:08 Glucose (Fingerstick) 125mg/dL (70-99) 119mg/dL (70-99) Images Images Findings: The lungs are clear. The heart is not enlarged. There is no heart failure. Pacemaker is noted. Leads overlie the patient. There is mild elevation of the right hemidiaphragm. Impression: No acute thoracic findings. Impression: New area of decreased attenuation in the right prior lobe suspicious for subacute infarct. No evidence of hemorrhagic transformation. This finding is a change from April. Consider MRI. ELLIOTT NELSON MD Jul 07, 2016 11:22
--- NOTE | 2016-07-07 12:14 | PDOC2 ---
NEUROLOGY CONSULT Date of Admission Date of Admission DATE: 07/07/16 TIME: 12:00 Reason for Consult Reason for Consult: Possible seizure Referring Physician Referring Physician: Dr. Nails PCP: Dr. Higgins Source Source: Caregiver, Chart review, Patient History of Present Illness History of Present Illness The patient is a 75-year-old right-handed male who had a possible seizure yesterday. He has to self-catheterize ever since developing urinary retention 5 months ago. He noticed that his left arm was shaking and he could not control it. He went to the bathroom and his observed some tonic posture of the left arm, eyes rolled back, and he bit his time. There was no generalized convulsive activity. There was no incontinence. He woke up fairly quickly. He was having some dysarthria about 3 days before. There is no history of stroke, seizure, or head injury. He feels fine today. Dr. Gage saw him for generalized weakness 3 months ago and found no focal abnormalities. Past Medical History Cardiovascular: AFIB, HTN Pulmonary: Asthma CENTRAL NERVOUS SYSTEM: Periperal neuropathy GI: GERD, Other ( diarrhea) Heme/Onc: Anemia NOS Psych: Anxiety, Depression Musculoskeletal: low back pain Renal/: Chronic renal failure ( on dialysis) Endocrine: Diabetes Past Surgical History Past Surgical History: Pacemaker, Other (Peritoneal dialysis catheter) Family History Family History: No pertinent hx Social History Social History , non-smoker, nondrinker Current Medications Current Medications Current Medications Diltiazem HCl (Cardizem 24hr Cd) 240 mg DAILY PO Last administered on 09:10; Start 07/06/16 at 19:00 Metoprolol Tartrate (Lopressor) 12.5 mg 1X ONCE PO Last administered on 19:01; Start 07/06/16 at 18:45; Stop 07/06/16 at 18:48; Status DC Insulin Aspart (Novolog) 0-9 UNITS TIDACHC SQ ; Start 07/07/16 at 07:30 Dextrose 12.5 gm PRN Q15MIN PRN IV SEE COMMENTS; Start 07/06/16 at 21:45 Aspirin (Children'S Aspirin) 81 mg DAILY PO Last administered on 07/07/16 09: 10; Start 07/07/16 at 09:00 Finasteride (Proscar) 10 mg DAILY PO Last administered on 07/07/16 09:11; Start 07/07/16 at 09:00 Furosemide (Lasix) 40 mg [id number] PO Last administered on 07/07/16 09:09; Start 07/07/16 at 09:00 Metoprolol Tartrate (Lopressor) 12.5 mg BID PO Last administered on 07/07/16 09:11; Start 07/06/16 at 23:00 Tamsulosin HCl (Flomax) 0.4 mg BID PO Last administered on 07/07/16 09:10; Start 07/06/16 at 23:00 Non-Formulary Medication 2 puff PRN PRN IH WHEEZING; Start 07/06/16 at 22:45; Status UNV Vitamin B Complex/ Vitamin C (Nephro-Jeanmarie) 1 tab DAILY PO Last administered on 07/07/16 09:10; Start 07/07/16 at 09:00 Insulin Detemir (Levemir) 30 units DAILY SQ ; Start 07/07/16 at 09:00 Non-Formulary Medication 2 puff PRN BID PRN INH SHORTNESS OF BREATH; Start at 22:45; Status UNV Albuterol Sulfate (Ventolin Neb Soln) 2.5 mg RTQID NEB ; Start 07/07/16 at 08:00 Budesonide (Pulmicort) 0.5 mg RTBID NEB ; Start 07/07/16 at 08:00 Benzocaine (Ora-Jel) 1 antwon PRN QID PRN TP ORAL PAIN; Start 07/06/16 at 23:00; Stop 07/06/16 at 23:09; Status DC Acetaminophen (Tylenol) 650 mg PRN Q6HRS PRN PO MILD PAIN / TEMP; Start at 23:15 Benzocaine (Ora-Jel Baby) 1 antwon PRN QID PRN TP ORAL PAIN Last administered on 23:16; Start 07/06/16 at 23:09 Active Scripts Active Metoprolol Tartrate 25 Mg Tablet 12.5 Mg PO BID Reported Aspirin 81 Mg Tab.chew 1 Tab PO DAILY Levemir (Insulin Detemir) 100 Unit/1 Ml Vial 30 Unit SQ DAILY Proscar (Finasteride) 5 Mg Tablet 2 Tab PO DAILY Flomax (Tamsulosin Hcl) 0.4 Mg Cap.er.24h 1 Cap PO BID [insulin w/dex] Furosemide 40 Mg Tablet 40 Mg PO BID [Symbicort] 2 Puff INH PRN BID PRN Flovent 110MCG Hfa (Fluticasone Propionate) 12 Gm Aer.w.adap 2 Puff IH PRN PRN Renal Caps Softgel (Folic Acid/Vitamin B Comp W-C) 1 Mg Capsule 1 Cap PO DAILY Allergies Allergies: Coded Allergies: sitagliptin (Verified Allergy, Intermediate, Hives, 02/27/16) metformin (Verified Adverse Reaction, Intermediate, STOMACH UPSET, 02/27/16 ) ROS Review of System Negative for fevers, chills, weight loss, shortness of breath, chest pain, indigestion, hematochezia, melena, dysuria. Full 14-point review systems is negative. Physical Exam Physical Examination PHYSICAL EXAMINATION: Vital signs: see above. General appearance is normal and in no acute distress. HEENT: Normocephalic and nontraumatic. Eyes, nose, ears, and throat are unremarkable. Neck is supple. No lymphadenopathy. No bruits are heard over the carotid artery. No crepitus. NEUROLOGICAL EXAMINATION: Mental Status Examination: Alert. Oriented to time, place, and person. Answers questions and follows commends. Pupils are equal round and reactive to light and accommodation. Funduscopic exam: No papilledema. Extraocular movements are intact. Visual field exam shows no defect on the direct confrontation. No motor or sensory deficits on the facial exam. Uvula in the midline and the soft palate elevated symmetrically. No deviation of the tongue to any direction. Gross hearing is normal. Shoulder shrug normal. Muscle tone is normal. Muscle strength is 5. Deep tendon reflexes are 1+ all around. Plantar reflex is with flexion response bilaterally. [id number] test performance is accurate. Alternative movements are accurate. Romberg test is negative. Gait is normal. Sensory exam shows stocking loss. No cerebellar signs are elicited. Vitals VITALS Vital Signs Date Time Temp Pulse Resp B/P Pulse Ox O2 Delivery O2 Flow Rate FiO2 07/07/16 11:00 98.1 69 18 144/67 97 Room Air 98.1 Labs Labs Laboratory Tests Test 07/06/16 16:00 07/06/16 17:50 07/06/16 20:50 07/07/16 04:40 White Blood Count 9.0x10^3/uL (4.0-11.0) 9.4x10^3/uL (4.0-11.0) Red Blood Count 5.53x10^6/uL (4.30-5.70) 4.72x10^6/uL (4.30-5.70) Hemoglobin 13.3g/dL (13.0-17.5) 11.3g/dL (13.0-17.5) Hematocrit 42.4% (39.0-53.0) 36.9% (39.0-53.0) Mean Corpuscular Volume 77fL (79-100) 78fL (79-100) Mean Corpuscular Hemoglobin 24pg (25-35) 24pg (25-35) Mean Corpuscular Hemoglobin Concent 31g/dL (31-37) 31g/dL (31-37) Red Cell Distribution Width 20.5% (11.5-14.5) 20.6% (11.5-14.5) Platelet Count 235x10^3/uL (140-400) 211x10^3/uL (140-400) Neutrophils (%) (Auto) 56% (31-73) 48% (31-73) Lymphocytes (%) (Auto) 26% (24-48) 27% (24-48) Monocytes (%) (Auto) 10% (0-9) 13% (0-9) Eosinophils (%) (Auto) 8% (0-3) 13% (0-3) Basophils (%) (Auto) 0% (0-3) 0% (0-3) Neutrophils # (Auto) 5.0x10^3uL (1.8-7.7) 4.5x10^3uL (1.8-7.7) Lymphocytes # (Auto) 2.4x10^3/uL (1.0-4.8) 2.5x10^3/uL (1.0-4.8) Monocytes # (Auto) 0.9x10^3/uL (0.0-1.1) 1.2x10^3/uL (0.0-1.1) Eosinophils # (Auto) 0.7x10^3/uL (0.0-0.7) 1.2x10^3/uL (0.0-0.7) Basophils # (Auto) 0.0x10^3/uL (0.0-0.2) 0.0x10^3/uL (0.0-0.2) Platelet Estimate Adequate (ADEQUATE) Adequate (ADEQUATE) Hypochromasia Slight Slight Anisocytosis Slight Mod Microcytosis Slight Present Sodium Level 142mmol/L (136-145) 145mmol/L (136-145) Potassium Level 5.0mmol/L (3.5-5.1) 4.8mmol/L (3.5-5.1) Chloride Level 103mmol/L (98-107) 106mmol/L (98-107) Carbon Dioxide Level 24mmol/L (21-32) 26mmol/L (21-32) Anion Gap 15 (6-14) 13 (6-14) Blood Urea Nitrogen 32mg/dL (8-26) 37mg/dL (8-26) Creatinine 6.5mg/dL (0.7-1.3) 7.5mg/dL (0.7-1.3) Estimated GFR (Cockcroft-Gault) 10.2 8.7 BUN/Creatinine Ratio 5 (6-20) Glucose Level 171mg/dL (70-99) 143mg/dL (70-99) Calcium Level 10.0mg/dL (8.5-10.1) 9.4mg/dL (8.5-10.1) Magnesium Level 2.1mg/dL (1.8-2.4) Total Bilirubin 0.3mg/dL (0.2-1.0) Aspartate Amino Transf (AST/SGOT) 24U/L (15-37) Alanine Aminotransferase (ALT/SGPT) 29U/L (16-63) Alkaline Phosphatase 72U/L (46-116) Troponin I Quantitative 0.038ng/mL (0.000-0.055) 0.080ng/mL (0.000-0.055) Total Protein 8.7g/dL (6.4-8.2) Albumin 3.4g/dL (3.4-5.0) Albumin/Globulin Ratio 0.6 (1.0-1.7) Urine Collection Type U cath Urine Color Yellow Urine Clarity Cloudy Urine pH 7.5 Urine Specific [place] 1.015 Urine Protein >=300mg/dL (NEG-TRACE) Urine Glucose (UA) 100mg/dL (NEG) Urine Ketones (Stick) Negativemg/dL (NEG) Urine Blood Large (NEG) Urine Nitrite Negative (NEG) Urine Bilirubin Negative (NEG) Urine Urobilinogen Dipstick 0.2mg/dL (0.2 mg/dL) Urine Leukocyte Esterase Large (NEG) Urine RBC 3-5/HPF (0-2) Urine WBC Tntc/HPF (0-4) Urine Squamous Epithelial Cells Many/LPF Urine Transitional Epithelial Cells Occ/LPF Urine Renal Epithelial Cells Occ/LPF Urine Bacteria Few/HPF (0-FEW) Urine Mucus Marked/LPF Glucose (Fingerstick) 110mg/dL (70-99) Segmented Neutrophils % 60% (35-66) Lymphocytes % 17% (24-48) Atypical Lymphocytes % (Manual) 1% (0-0) Monocytes % 11% (0-10) Eosinophils % 10% (0-5) Basophils % 1% (0-3) Ovalocytes Few Test 07/07/16 07:35 07/07/16 08:08 Glucose (Fingerstick) 125mg/dL (70-99) 119mg/dL (70-99) Laboratory Tests Test 07/06/16 16:00 07/06/16 17:50 07/06/16 20:50 07/07/16 04:40 White Blood Count 9.0x10^3/uL (4.0-11.0) 9.4x10^3/uL (4.0-11.0) Red Blood Count 5.53x10^6/uL (4.30-5.70) 4.72x10^6/uL (4.30-5.70) Hemoglobin 13.3g/dL (13.0-17.5) 11.3g/dL (13.0-17.5) Hematocrit 42.4% (39.0-53.0) 36.9% (39.0-53.0) Mean Corpuscular Volume 77fL (79-100) 78fL (79-100) Mean Corpuscular Hemoglobin 24pg (25-35) 24pg (25-35) Mean Corpuscular Hemoglobin Concent 31g/dL (31-37) 31g/dL (31-37) Red Cell Distribution Width 20.5% (11.5-14.5) 20.6% (11.5-14.5) Platelet Count 235x10^3/uL (140-400) 211x10^3/uL (140-400) Neutrophils (%) (Auto) 56% (31-73) 48% (31-73) Lymphocytes (%) (Auto) 26% (24-48) 27% (24-48) Monocytes (%) (Auto) 10% (0-9) 13% (0-9) Eosinophils (%) (Auto) 8% (0-3) 13% (0-3) Basophils (%) (Auto) 0% (0-3) 0% (0-3) Neutrophils # (Auto) 5.0x10^3uL (1.8-7.7) 4.5x10^3uL (1.8-7.7) Lymphocytes # (Auto) 2.4x10^3/uL (1.0-4.8) 2.5x10^3/uL (1.0-4.8) Monocytes # (Auto) 0.9x10^3/uL (0.0-1.1) 1.2x10^3/uL (0.0-1.1) Eosinophils # (Auto) 0.7x10^3/uL (0.0-0.7) 1.2x10^3/uL (0.0-0.7) Basophils # (Auto) 0.0x10^3/uL (0.0-0.2) 0.0x10^3/uL (0.0-0.2) Platelet Estimate Adequate (ADEQUATE) Adequate (ADEQUATE) Hypochromasia Slight Slight Anisocytosis Slight Mod Microcytosis Slight Present Sodium Level 142mmol/L (136-145) 145mmol/L (136-145) Potassium Level 5.0mmol/L (3.5-5.1) 4.8mmol/L (3.5-5.1) Chloride Level 103mmol/L (98-107) 106mmol/L (98-107) Carbon Dioxide Level 24mmol/L (21-32) 26mmol/L (21-32) Anion Gap 15 (6-14) 13 (6-14) Blood Urea Nitrogen 32mg/dL (8-26) 37mg/dL (8-26) Creatinine 6.5mg/dL (0.7-1.3) 7.5mg/dL (0.7-1.3) Estimated GFR (Cockcroft-Gault) 10.2 8.7 BUN/Creatinine Ratio 5 (6-20) Glucose Level 171mg/dL (70-99) 143mg/dL (70-99) Calcium Level 10.0mg/dL (8.5-10.1) 9.4mg/dL (8.5-10.1) Magnesium Level 2.1mg/dL (1.8-2.4) Total Bilirubin 0.3mg/dL (0.2-1.0) Aspartate Amino Transf (AST/SGOT) 24U/L (15-37) Alanine Aminotransferase (ALT/SGPT) 29U/L (16-63) Alkaline Phosphatase 72U/L (46-116) Troponin I Quantitative 0.038ng/mL (0.000-0.055) 0.080ng/mL (0.000-0.055) Total Protein 8.7g/dL (6.4-8.2) Albumin 3.4g/dL (3.4-5.0) Albumin/Globulin Ratio 0.6 (1.0-1.7) Urine Collection Type U cath Urine Color Yellow Urine Clarity Cloudy Urine pH 7.5 Urine Specific [place] 1.015 Urine Protein >=300mg/dL (NEG-TRACE) Urine Glucose (UA) 100mg/dL (NEG) Urine Ketones (Stick) Negativemg/dL (NEG) Urine Blood Large (NEG) Urine Nitrite Negative (NEG) Urine Bilirubin Negative (NEG) Urine Urobilinogen Dipstick 0.2mg/dL (0.2 mg/dL) Urine Leukocyte Esterase Large (NEG) Urine RBC 3-5/HPF (0-2) Urine WBC Tntc/HPF (0-4) Urine Squamous Epithelial Cells Many/LPF Urine Transitional Epithelial Cells Occ/LPF Urine Renal Epithelial Cells Occ/LPF Urine Bacteria Few/HPF (0-FEW) Urine Mucus Marked/LPF Glucose (Fingerstick) 110mg/dL (70-99) Segmented Neutrophils % 60% (35-66) Lymphocytes % 17% (24-48) Atypical Lymphocytes % (Manual) 1% (0-0) Monocytes % 11% (0-10) Eosinophils % 10% (0-5) Basophils % 1% (0-3) Ovalocytes Few Test 07/07/16 07:35 07/07/16 08:08 Glucose (Fingerstick) 125mg/dL (70-99) 119mg/dL (70-99) Images Images Findings: There is a new area of decreased attenuation involving guadalupe and white matter in the right parietal lobe, approximately 2.5 cm in size, suspicious for subacute infarct. There is no hemorrhagic transformation. There is brain parenchymal volume loss and minimal probable small vessel ischemic disease. The ventricles and sulci are within normal limits for age. Paranasal sinuses and mastoid air cells are clear. Report was called to Dr. Quick at 1601 hours. Impression: New area of decreased attenuation in the right prior lobe suspicious for subacute infarct. No evidence of hemorrhagic transformation. This finding is a change from April. Consider MRI. 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 Holding on anticonvulsants I discussed my findings with the patient and his . Thank you for letting me help with the patient's care. JOSEPH HILLMAN MD Jul 07, 2016 12:14
[2016-07-07] MEDS ORDERED: ALBUTEROL SULFATE 2.5 MG/3 ML NEBU. NEB PRN (12:15)
--- NOTE | 2016-07-07 14:30 | PDOC2 ---
GI CONSULT Reason For Consult: ?resume anticoagulation w/ h/o GI bleed/duodenal ulcer HPI: HPI: 75 y/o AA male admitted w/ possible syncope/seizure, recent stroke, HTN, and A Fib. Neuro and cardiology following. GI history is significant bleeding duodenal ulcer on EGD (Dr. Garcia) in 2015 treated w/ epinephrine and endo- clips. Takes ASA 81mg QD w/o other anticoagulation. H/o "burping" improved but not controlled w/ ranitidine Q a.m. GI asked to see re: resuming anticoagulation. Denies reflux, heartburn, abdominal pain, hematochezia, melena , changes in appetite, and weight loss. Alternates between loos and firm stools ; did have 1 episode of vomiting diarrhea prior to admission. No NSAID use. Does not recall previous colonoscopy. PMH: PMH: A Fib, CAD, HTN, HLD, 2nd degree AV block, pacemaker, GERD, GI bleed - duodenal ulcer, OA, ESRD on HD, urinary retention, DM, PD catheter placement/removal, right AV fistula FH: Family History: No pertinent hx Social History: Smoke: No ALCOHOL: none Drugs: None ROS: GEN: Denies fevers, chills, sweats HEENT: Denies blurred vision, sore throat CV: Denies chest pain RESP: Denies shortness of air, cough GI: Per HPI : urinary retention w/ self cath ENDO: Denies weight changes NEURO: per HPI MSK: Denies weakness, joint pain/swelling SKIN: Denies jaundice, pruritus VItals: Vitals: Vital Signs Date Time Temp Pulse Resp B/P Pulse Ox O2 Delivery O2 Flow Rate FiO2 07/07/16 11:00 98.1 69 18 144/67 97 Room Air 98.1 Labs: Labs: Laboratory Tests Test 07/06/16 16:00 07/06/16 17:50 07/06/16 20:50 07/07/16 04:40 White Blood Count 9.0x10^3/uL (4.0-11.0) 9.4x10^3/uL (4.0-11.0) Red Blood Count 5.53x10^6/uL (4.30-5.70) 4.72x10^6/uL (4.30-5.70) Hemoglobin 13.3g/dL (13.0-17.5) 11.3g/dL (13.0-17.5) Hematocrit 42.4% (39.0-53.0) 36.9% (39.0-53.0) Mean Corpuscular Volume 77fL (79-100) 78fL (79-100) Mean Corpuscular Hemoglobin 24pg (25-35) 24pg (25-35) Mean Corpuscular Hemoglobin Concent 31g/dL (31-37) 31g/dL (31-37) Red Cell Distribution Width 20.5% (11.5-14.5) 20.6% (11.5-14.5) Platelet Count 235x10^3/uL (140-400) 211x10^3/uL (140-400) Neutrophils (%) (Auto) 56% (31-73) 48% (31-73) Lymphocytes (%) (Auto) 26% (24-48) 27% (24-48) Monocytes (%) (Auto) 10% (0-9) 13% (0-9) Eosinophils (%) (Auto) 8% (0-3) 13% (0-3) Basophils (%) (Auto) 0% (0-3) 0% (0-3) Neutrophils # (Auto) 5.0x10^3uL (1.8-7.7) 4.5x10^3uL (1.8-7.7) Lymphocytes # (Auto) 2.4x10^3/uL (1.0-4.8) 2.5x10^3/uL (1.0-4.8) Monocytes # (Auto) 0.9x10^3/uL (0.0-1.1) 1.2x10^3/uL (0.0-1.1) Eosinophils # (Auto) 0.7x10^3/uL (0.0-0.7) 1.2x10^3/uL (0.0-0.7) Basophils # (Auto) 0.0x10^3/uL (0.0-0.2) 0.0x10^3/uL (0.0-0.2) Platelet Estimate Adequate (ADEQUATE) Adequate (ADEQUATE) Hypochromasia Slight Slight Anisocytosis Slight Mod Microcytosis Slight Present Sodium Level 142mmol/L (136-145) 145mmol/L (136-145) Potassium Level 5.0mmol/L (3.5-5.1) 4.8mmol/L (3.5-5.1) Chloride Level 103mmol/L (98-107) 106mmol/L (98-107) Carbon Dioxide Level 24mmol/L (21-32) 26mmol/L (21-32) Anion Gap 15 (6-14) 13 (6-14) Blood Urea Nitrogen 32mg/dL (8-26) 37mg/dL (8-26) Creatinine 6.5mg/dL (0.7-1.3) 7.5mg/dL (0.7-1.3) Estimated GFR (Cockcroft-Gault) 10.2 8.7 BUN/Creatinine Ratio 5 (6-20) Glucose Level 171mg/dL (70-99) 143mg/dL (70-99) Calcium Level 10.0mg/dL (8.5-10.1) 9.4mg/dL (8.5-10.1) Magnesium Level 2.1mg/dL (1.8-2.4) Total Bilirubin 0.3mg/dL (0.2-1.0) Aspartate Amino Transf (AST/SGOT) 24U/L (15-37) Alanine Aminotransferase (ALT/SGPT) 29U/L (16-63) Alkaline Phosphatase 72U/L (46-116) Troponin I Quantitative 0.038ng/mL (0.000-0.055) 0.080ng/mL (0.000-0.055) Total Protein 8.7g/dL (6.4-8.2) Albumin 3.4g/dL (3.4-5.0) Albumin/Globulin Ratio 0.6 (1.0-1.7) Urine Collection Type U cath Urine Color Yellow Urine Clarity Cloudy Urine pH 7.5 Urine Specific [place] 1.015 Urine Protein >=300mg/dL (NEG-TRACE) Urine Glucose (UA) 100mg/dL (NEG) Urine Ketones (Stick) Negativemg/dL (NEG) Urine Blood Large (NEG) Urine Nitrite Negative (NEG) Urine Bilirubin Negative (NEG) Urine Urobilinogen Dipstick 0.2mg/dL (0.2 mg/dL) Urine Leukocyte Esterase Large (NEG) Urine RBC 3-5/HPF (0-2) Urine WBC Tntc/HPF (0-4) Urine Squamous Epithelial Cells Many/LPF Urine Transitional Epithelial Cells Occ/LPF Urine Renal Epithelial Cells Occ/LPF Urine Bacteria Few/HPF (0-FEW) Urine Mucus Marked/LPF Glucose (Fingerstick) 110mg/dL (70-99) Segmented Neutrophils % 60% (35-66) Lymphocytes % 17% (24-48) Atypical Lymphocytes % (Manual) 1% (0-0) Monocytes % 11% (0-10) Eosinophils % 10% (0-5) Basophils % 1% (0-3) Ovalocytes Few Test 07/07/16 07:35 07/07/16 08:08 Glucose (Fingerstick) 125mg/dL (70-99) 119mg/dL (70-99) Allergies: Coded Allergies: sitagliptin (Verified Allergy, Intermediate, Hives, 02/27/16) metformin (Verified Adverse Reaction, Intermediate, STOMACH UPSET, 02/27/16 ) Medications: Current Medications Medications (Trade) Dose Ordered Sig/[place] Route PRN Reason Start Time Stop Time Status Last Admin Dose Admin Diltiazem HCl (Cardizem 24hr Cd) 240 mg DAILY PO 07/06/16 19:00 07/07/16 09:10 Metoprolol Tartrate (Lopressor) 12.5 mg 1X ONCE PO 07/06/16 18:45 07/06/16 18:48 DC 07/06/16 19:01 Insulin Aspart (Novolog) 0-9 UNITS TIDACHC SQ 07/07/16 07:30 07/07/16 12:23 Aspirin (Children'S Aspirin) 81 mg DAILY PO 07/07/16 09:00 07/07/16 09:10 Finasteride (Proscar) 10 mg DAILY PO 07/07/16 09:00 07/07/16 09:11 Furosemide (Lasix) 40 mg BID94 PO 07/07/16 09:00 07/07/16 09:09 Metoprolol Tartrate (Lopressor) 12.5 mg BID PO 07/06/16 23:00 07/07/16 13:18 DC 07/07/16 09:11 Tamsulosin HCl (Flomax) 0.4 mg BID PO 07/06/16 23:00 07/07/16 09:10 Vitamin B Complex/ Vitamin C (Nephro-Jeanmarie) 1 tab DAILY PO 07/07/16 09:00 07/07/16 09:10 Benzocaine (Ora-Jel Baby) 1 antwon PRN QID PRN TP ORAL PAIN 07/06/16 23:09 07/06/16 23:16 Imaging: Imaging: CXR 07/06/16 Impression: No acute thoracic findings. Head CT 07/06/16 Impression: New area of decreased attenuation in the right prior lobe suspicious for subacute infarct. No evidence of hemorrhagic transformation.This finding is a change from April. Consider MRI. PE: GEN: NAD HEENT: Atraumatic, PERRL LUNGS: CTAB HEART: RRR +pacemaker ABD: NABS, S/ND/NT EXTREMITY: No edema SKIN: No rashes, no jaundice NEURO/PSYCH: A & O 3 OTHER: present A/P: A/P: Syncope Subacute stroke, A Fib, HTN, ESRD on HD -prior to admission was on ASA 81mg QD -followed by neuro, cardio, nephro H/o duodenal ulcer -2014, required endotherapy Belching -improved but not controlled w/ ranitidine Q a.m. -normal esophagus and stomach on previous EGD CRC screen -does not recall previous colonoscopy -- Use of ranitidine makes recurrent PUD less likely. Will start PPI in place of this. Okay to try anti-coagulation considering other co-morbidities. PAULINA KAT Jul 07, 2016 14:30
[2016-07-07 15:00] VITALS: BP 133/59
--- NOTE | 2016-07-07 15:13 | RAD ---
Indication CVA. Grayscale color Doppler and spectral imaging was performed. Examination was targeted to the carotid bifurcations. On the right there is no significant plaquing. The color Doppler images do not suggest significant turbulence. The common carotid waveform and velocities are normal. The external carotid has a normal appearance. The internal carotid waveform and velocities are also normal. The vertebral is patent and demonstrates normal directional flow. On the left there is no significant plaquing at the bifurcation. The color Doppler images do not suggest significant turbulence. The common carotid waveform and velocities are normal. The external carotid has a normal appearance. The internal carotid waveform and velocities are normal. The vertebral is patent and demonstrates normal directional flow. IMPRESSION: No evidence of hemodynamically significant stenosis at either carotid bifurcation. Stenosis 0-50%. Note: Stenosis calculations for CT, MR and conventional angiography are based upon determination of the distal ICA diameter in accordance with the NASCET methodology. Stenosis calculations for doppler studies are derived from validated velocity criteria which are known to correlate with NASCET methodology of determining stenosis.
--- NOTE | 2016-07-07 15:33 | PDOC ---
PROGRESS NOTES Chief Complaint Chief Complaint syncope, MS change TIA, DM2 obesity Possible seizure Subacute right parietal stroke on the CT Peripheral neuropathy History of Present Illness History of Present Illness feels well today has walked mental status at baseline per his Vitals Vitals Vital Signs Date Time Temp Pulse Resp B/P Pulse Ox O2 Delivery O2 Flow Rate FiO2 07/07/16 11:00 98.1 69 18 144/67 97 Room Air 98.1 Physical Exam General: Alert, Oriented X3, Cooperative, No acute distress Heart: Regular rate, Normal S1, Normal S2, No murmurs, Other (PPM left pectoral region well healed) Lungs: Clear Abdomen: Normal bowel sounds, Soft Extremities: No edema, Normal pulses Skin: No rashes Labs LABS Laboratory Tests Test 07/06/16 16:00 07/06/16 17:50 07/06/16 20:50 07/07/16 04:40 White Blood Count 9.0x10^3/uL (4.0-11.0) 9.4x10^3/uL (4.0-11.0) Red Blood Count 5.53x10^6/uL (4.30-5.70) 4.72x10^6/uL (4.30-5.70) Hemoglobin 13.3g/dL (13.0-17.5) 11.3g/dL (13.0-17.5) Hematocrit 42.4% (39.0-53.0) 36.9% (39.0-53.0) Mean Corpuscular Volume 77fL (79-100) 78fL (79-100) Mean Corpuscular Hemoglobin 24pg (25-35) 24pg (25-35) Mean Corpuscular Hemoglobin Concent 31g/dL (31-37) 31g/dL (31-37) Red Cell Distribution Width 20.5% (11.5-14.5) 20.6% (11.5-14.5) Platelet Count 235x10^3/uL (140-400) 211x10^3/uL (140-400) Neutrophils (%) (Auto) 56% (31-73) 48% (31-73) Lymphocytes (%) (Auto) 26% (24-48) 27% (24-48) Monocytes (%) (Auto) 10% (0-9) 13% (0-9) Eosinophils (%) (Auto) 8% (0-3) 13% (0-3) Basophils (%) (Auto) 0% (0-3) 0% (0-3) Neutrophils # (Auto) 5.0x10^3uL (1.8-7.7) 4.5x10^3uL (1.8-7.7) Lymphocytes # (Auto) 2.4x10^3/uL (1.0-4.8) 2.5x10^3/uL (1.0-4.8) Monocytes # (Auto) 0.9x10^3/uL (0.0-1.1) 1.2x10^3/uL (0.0-1.1) Eosinophils # (Auto) 0.7x10^3/uL (0.0-0.7) 1.2x10^3/uL (0.0-0.7) Basophils # (Auto) 0.0x10^3/uL (0.0-0.2) 0.0x10^3/uL (0.0-0.2) Platelet Estimate Adequate (ADEQUATE) Adequate (ADEQUATE) Hypochromasia Slight Slight Anisocytosis Slight Mod Microcytosis Slight Present Sodium Level 142mmol/L (136-145) 145mmol/L (136-145) Potassium Level 5.0mmol/L (3.5-5.1) 4.8mmol/L (3.5-5.1) Chloride Level 103mmol/L (98-107) 106mmol/L (98-107) Carbon Dioxide Level 24mmol/L (21-32) 26mmol/L (21-32) Anion Gap 15 (6-14) 13 (6-14) Blood Urea Nitrogen 32mg/dL (8-26) 37mg/dL (8-26) Creatinine 6.5mg/dL (0.7-1.3) 7.5mg/dL (0.7-1.3) Estimated GFR (Cockcroft-Gault) 10.2 8.7 BUN/Creatinine Ratio 5 (6-20) Glucose Level 171mg/dL (70-99) 143mg/dL (70-99) Calcium Level 10.0mg/dL (8.5-10.1) 9.4mg/dL (8.5-10.1) Magnesium Level 2.1mg/dL (1.8-2.4) Total Bilirubin 0.3mg/dL (0.2-1.0) Aspartate Amino Transf (AST/SGOT) 24U/L (15-37) Alanine Aminotransferase (ALT/SGPT) 29U/L (16-63) Alkaline Phosphatase 72U/L (46-116) Troponin I Quantitative 0.038ng/mL (0.000-0.055) 0.080ng/mL (0.000-0.055) Total Protein 8.7g/dL (6.4-8.2) Albumin 3.4g/dL (3.4-5.0) Albumin/Globulin Ratio 0.6 (1.0-1.7) Urine Collection Type U cath Urine Color Yellow Urine Clarity Cloudy Urine pH 7.5 Urine Specific [place] 1.015 Urine Protein >=300mg/dL (NEG-TRACE) Urine Glucose (UA) 100mg/dL (NEG) Urine Ketones (Stick) Negativemg/dL (NEG) Urine Blood Large (NEG) Urine Nitrite Negative (NEG) Urine Bilirubin Negative (NEG) Urine Urobilinogen Dipstick 0.2mg/dL (0.2 mg/dL) Urine Leukocyte Esterase Large (NEG) Urine RBC 3-5/HPF (0-2) Urine WBC Tntc/HPF (0-4) Urine Squamous Epithelial Cells Many/LPF Urine Transitional Epithelial Cells Occ/LPF Urine Renal Epithelial Cells Occ/LPF Urine Bacteria Few/HPF (0-FEW) Urine Mucus Marked/LPF Glucose (Fingerstick) 110mg/dL (70-99) Segmented Neutrophils % 60% (35-66) Lymphocytes % 17% (24-48) Atypical Lymphocytes % (Manual) 1% (0-0) Monocytes % 11% (0-10) Eosinophils % 10% (0-5) Basophils % 1% (0-3) Ovalocytes Few Test 07/07/16 07:35 07/07/16 08:08 Glucose (Fingerstick) 125mg/dL (70-99) 119mg/dL (70-99) Review of Systems Review of Systems no JOHNSON or blurry vision feels well no event Assessment and Plan Assessmemt and Plan Problems Medical Problems: (1) Seizure Status: Acute (2) Stroke Status: Acute Problems: Comment Review of Relevant I have reviewed the following items vanessa (where applicable) has been applied. Labs Laboratory Tests Test 07/06/16 16:00 07/06/16 17:50 07/06/16 20:50 07/07/16 04:40 White Blood Count 9.0x10^3/uL (4.0-11.0) 9.4x10^3/uL (4.0-11.0) Red Blood Count 5.53x10^6/uL (4.30-5.70) 4.72x10^6/uL (4.30-5.70) Hemoglobin 13.3g/dL (13.0-17.5) 11.3g/dL (13.0-17.5) Hematocrit 42.4% (39.0-53.0) 36.9% (39.0-53.0) Mean Corpuscular Volume 77fL (79-100) 78fL (79-100) Mean Corpuscular Hemoglobin 24pg (25-35) 24pg (25-35) Mean Corpuscular Hemoglobin Concent 31g/dL (31-37) 31g/dL (31-37) Red Cell Distribution Width 20.5% (11.5-14.5) 20.6% (11.5-14.5) Platelet Count 235x10^3/uL (140-400) 211x10^3/uL (140-400) Neutrophils (%) (Auto) 56% (31-73) 48% (31-73) Lymphocytes (%) (Auto) 26% (24-48) 27% (24-48) Monocytes (%) (Auto) 10% (0-9) 13% (0-9) Eosinophils (%) (Auto) 8% (0-3) 13% (0-3) Basophils (%) (Auto) 0% (0-3) 0% (0-3) Neutrophils # (Auto) 5.0x10^3uL (1.8-7.7) 4.5x10^3uL (1.8-7.7) Lymphocytes # (Auto) 2.4x10^3/uL (1.0-4.8) 2.5x10^3/uL (1.0-4.8) Monocytes # (Auto) 0.9x10^3/uL (0.0-1.1) 1.2x10^3/uL (0.0-1.1) Eosinophils # (Auto) 0.7x10^3/uL (0.0-0.7) 1.2x10^3/uL (0.0-0.7) Basophils # (Auto) 0.0x10^3/uL (0.0-0.2) 0.0x10^3/uL (0.0-0.2) Platelet Estimate Adequate (ADEQUATE) Adequate (ADEQUATE) Hypochromasia Slight Slight Anisocytosis Slight Mod Microcytosis Slight Present Sodium Level 142mmol/L (136-145) 145mmol/L (136-145) Potassium Level 5.0mmol/L (3.5-5.1) 4.8mmol/L (3.5-5.1) Chloride Level 103mmol/L (98-107) 106mmol/L (98-107) Carbon Dioxide Level 24mmol/L (21-32) 26mmol/L (21-32) Anion Gap 15 (6-14) 13 (6-14) Blood Urea Nitrogen 32mg/dL (8-26) 37mg/dL (8-26) Creatinine 6.5mg/dL (0.7-1.3) 7.5mg/dL (0.7-1.3) Estimated GFR (Cockcroft-Gault) 10.2 8.7 BUN/Creatinine Ratio 5 (6-20) Glucose Level 171mg/dL (70-99) 143mg/dL (70-99) Calcium Level 10.0mg/dL (8.5-10.1) 9.4mg/dL (8.5-10.1) Magnesium Level 2.1mg/dL (1.8-2.4) Total Bilirubin 0.3mg/dL (0.2-1.0) Aspartate Amino Transf (AST/SGOT) 24U/L (15-37) Alanine Aminotransferase (ALT/SGPT) 29U/L (16-63) Alkaline Phosphatase 72U/L (46-116) Troponin I Quantitative 0.038ng/mL (0.000-0.055) 0.080ng/mL (0.000-0.055) Total Protein 8.7g/dL (6.4-8.2) Albumin 3.4g/dL (3.4-5.0) Albumin/Globulin Ratio 0.6 (1.0-1.7) Urine Collection Type U cath Urine Color Yellow Urine Clarity Cloudy Urine pH 7.5 Urine Specific [place] 1.015 Urine Protein >=300mg/dL (NEG-TRACE) Urine Glucose (UA) 100mg/dL (NEG) Urine Ketones (Stick) Negativemg/dL (NEG) Urine Blood Large (NEG) Urine Nitrite Negative (NEG) Urine Bilirubin Negative (NEG) Urine Urobilinogen Dipstick 0.2mg/dL (0.2 mg/dL) Urine Leukocyte Esterase Large (NEG) Urine RBC 3-5/HPF (0-2) Urine WBC Tntc/HPF (0-4) Urine Squamous Epithelial Cells Many/LPF Urine Transitional Epithelial Cells Occ/LPF Urine Renal Epithelial Cells Occ/LPF Urine Bacteria Few/HPF (0-FEW) Urine Mucus Marked/LPF Glucose (Fingerstick) 110mg/dL (70-99) Segmented Neutrophils % 60% (35-66) Lymphocytes % 17% (24-48) Atypical Lymphocytes % (Manual) 1% (0-0) Monocytes % 11% (0-10) Eosinophils % 10% (0-5) Basophils % 1% (0-3) Ovalocytes Few Test 07/07/16 07:35 07/07/16 08:08 Glucose (Fingerstick) 125mg/dL (70-99) 119mg/dL (70-99) Laboratory Tests Test 07/06/16 16:00 07/06/16 17:50 07/06/16 20:50 07/07/16 04:40 White Blood Count 9.0x10^3/uL (4.0-11.0) 9.4x10^3/uL (4.0-11.0) Red Blood Count 5.53x10^6/uL (4.30-5.70) 4.72x10^6/uL (4.30-5.70) Hemoglobin 13.3g/dL (13.0-17.5) 11.3g/dL (13.0-17.5) Hematocrit 42.4% (39.0-53.0) 36.9% (39.0-53.0) Mean Corpuscular Volume 77fL (79-100) 78fL (79-100) Mean Corpuscular Hemoglobin 24pg (25-35) 24pg (25-35) Mean Corpuscular Hemoglobin Concent 31g/dL (31-37) 31g/dL (31-37) Red Cell Distribution Width 20.5% (11.5-14.5) 20.6% (11.5-14.5) Platelet Count 235x10^3/uL (140-400) 211x10^3/uL (140-400) Neutrophils (%) (Auto) 56% (31-73) 48% (31-73) Lymphocytes (%) (Auto) 26% (24-48) 27% (24-48) Monocytes (%) (Auto) 10% (0-9) 13% (0-9) Eosinophils (%) (Auto) 8% (0-3) 13% (0-3) Basophils (%) (Auto) 0% (0-3) 0% (0-3) Neutrophils # (Auto) 5.0x10^3uL (1.8-7.7) 4.5x10^3uL (1.8-7.7) Lymphocytes # (Auto) 2.4x10^3/uL (1.0-4.8) 2.5x10^3/uL (1.0-4.8) Monocytes # (Auto) 0.9x10^3/uL (0.0-1.1) 1.2x10^3/uL (0.0-1.1) Eosinophils # (Auto) 0.7x10^3/uL (0.0-0.7) 1.2x10^3/uL (0.0-0.7) Basophils # (Auto) 0.0x10^3/uL (0.0-0.2) 0.0x10^3/uL (0.0-0.2) Platelet Estimate Adequate (ADEQUATE) Adequate (ADEQUATE) Hypochromasia Slight Slight Anisocytosis Slight Mod Microcytosis Slight Present Sodium Level 142mmol/L (136-145) 145mmol/L (136-145) Potassium Level 5.0mmol/L (3.5-5.1) 4.8mmol/L (3.5-5.1) Chloride Level 103mmol/L (98-107) 106mmol/L (98-107) Carbon Dioxide Level 24mmol/L (21-32) 26mmol/L (21-32) Anion Gap 15 (6-14) 13 (6-14) Blood Urea Nitrogen 32mg/dL (8-26) 37mg/dL (8-26) Creatinine 6.5mg/dL (0.7-1.3) 7.5mg/dL (0.7-1.3) Estimated GFR (Cockcroft-Gault) 10.2 8.7 BUN/Creatinine Ratio 5 (6-20) Glucose Level 171mg/dL (70-99) 143mg/dL (70-99) Calcium Level 10.0mg/dL (8.5-10.1) 9.4mg/dL (8.5-10.1) Magnesium Level 2.1mg/dL (1.8-2.4) Total Bilirubin 0.3mg/dL (0.2-1.0) Aspartate Amino Transf (AST/SGOT) 24U/L (15-37) Alanine Aminotransferase (ALT/SGPT) 29U/L (16-63) Alkaline Phosphatase 72U/L (46-116) Troponin I Quantitative 0.038ng/mL (0.000-0.055) 0.080ng/mL (0.000-0.055) Total Protein 8.7g/dL (6.4-8.2) Albumin 3.4g/dL (3.4-5.0) Albumin/Globulin Ratio 0.6 (1.0-1.7) Urine Collection Type U cath Urine Color Yellow Urine Clarity Cloudy Urine pH 7.5 Urine Specific [place] 1.015 Urine Protein >=300mg/dL (NEG-TRACE) Urine Glucose (UA) 100mg/dL (NEG) Urine Ketones (Stick) Negativemg/dL (NEG) Urine Blood Large (NEG) Urine Nitrite Negative (NEG) Urine Bilirubin Negative (NEG) Urine Urobilinogen Dipstick 0.2mg/dL (0.2 mg/dL) Urine Leukocyte Esterase Large (NEG) Urine RBC 3-5/HPF (0-2) Urine WBC Tntc/HPF (0-4) Urine Squamous Epithelial Cells Many/LPF Urine Transitional Epithelial Cells Occ/LPF Urine Renal Epithelial Cells Occ/LPF Urine Bacteria Few/HPF (0-FEW) Urine Mucus Marked/LPF Glucose (Fingerstick) 110mg/dL (70-99) Segmented Neutrophils % 60% (35-66) Lymphocytes % 17% (24-48) Atypical Lymphocytes % (Manual) 1% (0-0) Monocytes % 11% (0-10) Eosinophils % 10% (0-5) Basophils % 1% (0-3) Ovalocytes Few Test 07/07/16 07:35 07/07/16 08:08 Glucose (Fingerstick) 125mg/dL (70-99) 119mg/dL (70-99) Microbiology 07/06/16 Urine Culture - Preliminary, Resulted 07/06/16 Urine Culture Result 1 (YON) - Preliminary, Resulted Medications Current Medications Diltiazem HCl (Cardizem 24hr Cd) 240 mg DAILY PO Last administered on 09:10; Start 07/06/16 at 19:00 Metoprolol Tartrate (Lopressor) 12.5 mg 1X ONCE PO Last administered on 19:01; Start 07/06/16 at 18:45; Stop 07/06/16 at 18:48; Status DC Insulin Aspart (Novolog) 0-9 UNITS TIDACHC SQ Last administered on 07/07/16 12 :23; Start 07/07/16 at 07:30 Dextrose 12.5 gm PRN Q15MIN PRN IV SEE COMMENTS; Start 07/06/16 at 21:45 Aspirin (Children'S Aspirin) 81 mg DAILY PO Last administered on 07/07/16 09: 10; Start 07/07/16 at 09:00 Finasteride (Proscar) 10 mg DAILY PO Last administered on 07/07/16 09:11; Start 07/07/16 at 09:00 Furosemide (Lasix) 40 mg BID94 PO Last administered on 07/07/16 09:09; Start 07/07/16 at 09:00 Metoprolol Tartrate (Lopressor) 12.5 mg BID PO Last administered on 07/07/16 09:11; Start 07/06/16 at 23:00; Stop 07/07/16 at 13:18; Status DC Tamsulosin HCl (Flomax) 0.4 mg BID PO Last administered on 07/07/16 09:10; Start 07/06/16 at 23:00 Non-Formulary Medication 2 puff PRN PRN IH WHEEZING; Start 07/06/16 at 22:45; Status UNV Vitamin B Complex/ Vitamin C (Nephro-Jeanmarie) 1 tab DAILY PO Last administered on 07/07/16 09:10; Start 07/07/16 at 09:00 Insulin Detemir (Levemir) 30 units DAILY SQ ; Start 07/07/16 at 09:00 Non-Formulary Medication 2 puff PRN BID PRN INH SHORTNESS OF BREATH; Start at 22:45; Status UNV Albuterol Sulfate (Ventolin Neb Soln) 2.5 mg RTQID NEB ; Start 07/07/16 at 08:00 ; Stop 07/07/16 at 12:16; Status DC Budesonide (Pulmicort) 0.5 mg RTBID NEB ; Start 07/07/16 at 08:00; Stop at 12:16; Status DC Benzocaine (Ora-Jel) 1 antwon PRN QID PRN TP ORAL PAIN; Start 07/06/16 at 23:00; Stop 07/06/16 at 23:09; Status DC Acetaminophen (Tylenol) 650 mg PRN Q6HRS PRN PO MILD PAIN / TEMP; Start at 23:15 Benzocaine (Ora-Jel Baby) 1 antwon PRN QID PRN TP ORAL PAIN Last administered on 23:16; Start 07/06/16 at 23:09 Albuterol Sulfate (Ventolin Neb Soln) 2.5 mg PRN QID PRN NEB SHORTNESS OF BREATH; Start 07/07/16 at 12:15 Metoprolol Tartrate (Lopressor) 25 mg BID PO ; Start 07/07/16 at 21:00 Pantoprazole Sodium (Protonix) 40 mg DAILYAC PO ; Start 07/07/16 at 15:00 Active Scripts Active Metoprolol Tartrate 25 Mg Tablet 12.5 Mg PO BID Reported Aspirin 81 Mg Tab.chew 1 Tab PO DAILY Levemir (Insulin Detemir) 100 Unit/1 Ml Vial 30 Unit SQ DAILY Proscar (Finasteride) 5 Mg Tablet 2 Tab PO DAILY Flomax (Tamsulosin Hcl) 0.4 Mg Cap.er.24h 1 Cap PO BID [insulin w/dex] Furosemide 40 Mg Tablet 40 Mg PO BID [Symbicort] 2 Puff INH PRN BID PRN Flovent 110MCG Hfa (Fluticasone Propionate) 12 Gm Aer.w.adap 2 Puff IH PRN PRN Renal Caps Softgel (Folic Acid/Vitamin B Comp W-C) 1 Mg Capsule 1 Cap PO DAILY Vitals/I & O Vital Sign - Last 24 Hours 07/06/16 07/06/16 07/06/16 07/06/16 15:49 16:19 16:32 17:19 Pulse 80 72 82 84 Resp 20 20 20 18 B/P 162/72 173/92 180/85 154/67 Pulse Ox 96 96 96 97 O2 Delivery Room Air Room Air Room Air Room Air 07/06/16 07/06/16 07/06/16 07/06/16 18:00 18:19 18:49 19:01 Pulse 80 88 78 75 Resp 18 26 16 B/P 145/67 195/80 155/67 155/67 Pulse Ox 97 97 O2 Delivery Room Air 07/06/16 07/06/16 07/06/16 07/06/16 19:05 19:19 19:49 20:29 Temp 97.6 97.6 Pulse 75 78 80 79 Resp 17 20 18 B/P 155/67 162/72 161/110 151/76 Pulse Ox 97 95 O2 Delivery Room Air 07/06/16 07/06/16 07/06/16 07/07/16 22:11 23:10 23:16 03:00 Temp 98.7 98.2 98.7 98.2 Pulse 71 71 65 Resp 20 18 B/P 160/71 160/71 141/68 Pulse Ox 96 98 O2 Delivery Room Air Room Air Room Air 07/07/16 07/07/16 07/07/16 07/07/16 07:00 07:50 08:00 09:10 Temp 98.2 98.2 Pulse 70 70 Resp 18 B/P 136/67 136/67 Pulse Ox 97 97 O2 Delivery Room Air Room Air Room Air 07/07/16 07/07/16 09:11 11:00 Temp 98.1 98.1 Pulse 70 69 Resp 18 B/P 136/67 144/67 Pulse Ox 97 O2 Delivery Room Air Intake and Output 07/06/16 07/06/16 07/07/16 15:00 23:00 07:00 Intake Total 360 ml Output Total 50 ml Balance 310 ml PRISCA SANCHEZ MD Jul 07, 2016 15:33
--- NOTE | 2016-07-07 15:55 | CARD ---
APPROVED REPORT EXAM: Two-dimensional and M-mode echocardiogram with Doppler and color Doppler. Other Information Quality : Good INDICATION CVA/TIA Atrial Fibrillation Echo Enhancing Agent Indication: Rule Out Septal Defect Agent/Amount Used: Agitated Saline 8mL 2D DIMENSIONS RVDd2.8 (2.9-3.5cm)Left Atrium(2D)4.4 (1.6-4.0cm) IVSd1.5 (0.7-1.1cm)Aortic Root(2D)2.5 (2.0-3.7cm) LVDd4.6 (3.9-5.9cm)LVOT Diameter2.0 (1.8-2.4cm) PWd1.5 (0.7-1.1cm)LVDs3.1 (2.5-4.0cm) FS (%) 26.0 %SV57.1 ml LVEF(%)55.0 (>50%) Aortic Valve AoV Peak Ivan.117.9cm/sAoV VTI20.4cm AO Peak GR.5.6mmHgLVOT Peak Ivan.96.8cm/s LVOT VTI 16.08cmAO Mean GR.3mmHg ALEXANDRE (VMAX)2.59xw6BRW (VTI)2.50cm2 Mitral Valve MV E Obvmdwsz840.7cm/sMV DECEL CUQN375zq MV A Dezihaui52.4cm/sMV LZV32co E/A Ratio2.1MVA (PHT)4.69cm2 TDI E/Lateral E'7.9E/Medial E'17.7 Tricuspid Valve TR P. Jqhpmlyi802rz/sRAP IOPCULHN9ydXp TR Peak Gr.62vsEyDSGW92yrHj Pulmonary Vein S1 Qphfvinh70.1cm/sD2 Tkpdwoxh33.0cm/s LEFT VENTRICLE The left ventricle is normal size. There is normal left ventricular wall thickness. The left ventricu lar systolic function is normal and the ejection fraction is within normal range. The Ejection Fracti on is 55-60%. There is normal LV segmental wall motion. RIGHT VENTRICLE The right ventricle is normal size. The right ventricular systolic function is normal. ATRIA The left atrium is mildly dilated. The right atrium size is normal. The interatrial septum is intact with no evidence for an atrial septal defect or patent foramen ovale as noted on 2-D or Doppler imagi ng. Injection of bubbles documented no interatrial shunt. AORTIC VALVE The aortic valve is calcified but opens well. Doppler and Color Flow revealed no significant aortic r egurgitation. There is no significant aortic valvular stenosis. MITRAL VALVE The mitral valve is calcified but opens well. There is no evidence of mitral valve prolapse. There is no mitral valve stenosis. Doppler and Color-flow revealed mild mitral regurgitation. TRICUSPID VALVE The tricuspid valve is normal in structure and function. Doppler and Color Flow revealed mild tricusp id regurgitation. The PA pressure was estimated at 30 mmHg. There is mild pulmonary hypertension. The re is no tricuspid valve stenosis. PULMONIC VALVE The pulmonary valve is normal in structure and function. Doppler and Color Flow revealed trace pulmon ic valvular regurgitation. There is no pulmonic valvular stenosis. GREAT VESSELS The aortic root is normal in size. The ascending aorta is normal in size. The IVC is normal in size a nd collapses >50% with inspiration. PERICARDIAL EFFUSION There is no evidence of significant pericardial effusion. Critical Notification Critical Value: No <Conclusion> The left ventricular systolic function is normal and the ejection fraction is within normal range. Th e Ejection Fraction is 55-60%. There is normal LV segmental wall motion. The interatrial septum is intact with no evidence for an atrial septal defect or patent foramen ovale as noted on 2-D or Doppler imaging. Injection of bubbles documented no interatrial shunt. No significant valvular disease.
[2016-07-07] MEDS: PANTOPRAZOLE 40 MG TABLET. PO SCH (15:58)
[2016-07-07 18:02] LABS: INR 1.2 (0.8-1.1)
--- NOTE | 2016-07-07 18:07 | EEG ---
DATE OF SERVICE: 07/07/2016 ATTENDING PHYSICIAN: Dr. Nails. ELECTROENCEPHALOGRAM NUMBER: [id number] performed on 07/07/2016. OBJECTIVE: The patient is a 75-year-old male with possible new seizure. DESCRIPTION: This is a digital study. Electrodes are placed according to the international 10-20 system. Bipolar and referential montages are available. Activation procedures typically include hyperventilation and intermittent photic stimulation. INTERPRETATION: The waking background consists of 9-10 Hz, 50-100 microvolt activity, symmetrically distributed over parietooccipital regions and reactive to eye opening. Hyperventilation and intermittent photic stimulation are noncontributory. Stage I sleep is achieved with normal electroencephalogram patterns. IMPRESSION: This electroencephalogram with the patient awake and asleep is within normal limits. There is no focal, paroxysmal, or epileptiform activity. Thank you for letting us help with the patient's care. JOSEPH HILLMAN MD DR: SAIDA/aliyah JOB#: [id number] / [id number]
[2016-07-07 19:00] VITALS: BP 138/64
[2016-07-07] MEDS ORDERED: WARFARIN 7.5 MG TABLET. PO ONE (19:00)
[2016-07-07 23:00] VITALS: BP 140/65
--- NOTE | 2016-07-07 23:57 | CONS ---
DATE OF CONSULTATION: 07/07/2016 LOCATION: The patient is in room 534. HISTORY OF PRESENT ILLNESS: The patient is a very pleasant 75-year-old -[place] male who was admitted with mental status changes, which came on yesterday and then resolved. The patient has a history of end-stage renal disease and he does hemodialysis 3 times a week. He has not had any problems with dialysis. He does have also history of BPH and urinary retention. He makes about 150 mL of urine a day and he does intermittent self-cath about 3 times a day just for comfort sake when he gets about 50 mL in his bladder. He is on both finasteride and Flomax. His urine on admission yesterday just showed 3-5 red cells, msz-ddwyzspw-th-count white cells, many squamous epithelial cells, a few bacteria, but is nitrite negative. The patient is afebrile. The patient is not complaining of any pain. He has no problems passing his catheter on. PHYSICAL EXAMINATION: GENITOURINARY: Testes are descended bilaterally. Phallus within normal limits. RECTAL: Good sphincter tone. Prostate is smooth and nontender without nodules, overall size 30 grams. ASSESSMENT: History of mental status changes yesterday, which has resolved. The patient is going to be worked up by Medicine and Neurology for cardiac or neurologic source, and then from a urology standpoint, we would recommend staying on the Flomax and finasteride and continue with this intermittent self-cath 3 times a day and then follow up in Urology in 3 months. I certainly appreciate also having them check a urine culture on his next cath specimen just to make no infection. I certainly appreciate being allowed to participate in this patient's care. NOLBERTO THOMPSON MD DR: SHALINI/aliyah JOB#: [id number] / [id number]
--- NOTE | 2016-07-08 00:05 | CONS ---
DATE OF CONSULTATION: 07/07/2016 REASON FOR CONSULTATION: ESRD. HISTORY OF PRESENT ILLNESS: The patient is a pleasant 75-year-old -[place] gentleman who was brought to the ED by ambulance after possible syncopal episode. There was some concern about a possible seizure also. He apparently was going to do his self-catheterization, which he commonly does. His felt that he was somewhat confused and his hands were not working correctly and was noted to be fumbling around. They called 911. There was also a possible syncopal episode during this timeframe. On arrival, he was noted to have pretty high blood pressures. It is noted that he was recently admitted to this facility previously. He is an ESRD patient, uses a right arm AV fistula, dialyzes Thursday, , Thursday. He did go to dialysis on Thursday and had no complications by his reports. He was feeling fine thereafter. Denies any other problems at this time. He denies dysuria, urgency or frequency. For rest of details, see electronic records. ELLIOTT NELSON MD DR: SHANTEL/aliyah JOB#: [id number] / [id number]
[2016-07-08 03:00] VITALS: BP 137/60
[2016-07-08 04:31] LABS: INR 1.1 (0.8-1.1); PROTHROMBIN TIME PATIENT 13.8 SEC (11.7-14.0)
[2016-07-08 04:50] LABS: CHOLESTEROL/HDL RATIO 2.6
[2016-07-08 07:00] VITALS: BP 146/69
[2016-07-08] MEDS: INSULIN ASPART 300 UNITS/3 ML INSULN.PEN SQ SCH ×4 (07:30→21:00)
[2016-07-08] MEDS ORDERED: ONDANSETRON PF 4 MG/2 ML VIAL. IV PRN (07:45)
[2016-07-08] MEDS ORDERED: IOHEXOL 300 MG/ML 75 ML VIAL IV ONE (08:00)
[2016-07-08] MEDS ORDERED: LIDOCAINE 1% PF 2 ML VIAL. ONE (08:46)
--- NOTE | 2016-07-08 08:49 | PDOC ---
SUBJECTIVE Subjective Pt. with GI complaints today OBJECTIVE Objective Dyalisis today Vital Signs Vital Signs Date Time Temp Pulse Resp B/P Pulse Ox O2 Delivery O2 Flow Rate FiO2 07/08/16 03:00 98.6 69 18 137/60 97 98.6 07/07/16 23:00 98.6 76 18 140/65 98 98.6 07/07/16 21:14 69 150/64 07/07/16 19:00 98.3 75 18 138/64 97 98.3 07/07/16 15:00 98.3 70 18 133/59 98 Room Air 98.3 07/07/16 11:00 98.1 69 18 144/67 97 Room Air 98.1 07/07/16 09:11 70 136/67 07/07/16 09:10 70 136/67 I & O Intake and Output 07/08/16 07:00 Intake Total 300 ml Output Total 50 ml Balance 250 ml Intake Oral 300 ml Output Urine Total 50 ml # Voids 2 PHYSICAL EXAM Physical Exam urine cult no growth at 1 day ASSESSMENT/PLAN Assessment/Plan check urine c and s for final continue ISC f/u urology 3 months Problems: COMMENT Lab Laboratory Tests Test 07/07/16 11:04 07/07/16 16:44 07/07/16 17:40 07/07/16 21:11 Glucose (Fingerstick) 165mg/dL (70-99) 112mg/dL (70-99) 206mg/dL (70-99) Prothrombin Time 14.0SEC (11.7-14.0) Prothromb Time International Ratio 1.2 (0.8-1.1) Test 07/08/16 03:47 07/08/16 07:35 Prothrombin Time 13.8SEC (11.7-14.0) Prothromb Time International Ratio 1.1 (0.8-1.1) Triglycerides Level 113mg/dL (0-150) Cholesterol Level 126mg/dL (0-200) LDL Cholesterol, Calculated 55mg/dL (0-100) VLDL Cholesterol, Calculated 23mg/dL (0-40) HDL Cholesterol 48mg/dL (40-60) Cholesterol/HDL Ratio 2.6 Glucose (Fingerstick) 173mg/dL (70-99) NOLBERTO THOMPSON MD Jul 08, 2016 08:49
[2016-07-08] MEDS ORDERED: MAGNESIUM SULFATE 2GM 50 ML IV PRN (09:00)
[2016-07-08] MEDS: FUROSEMIDE 40 MG TABLET PO SCH ×2 (09:00→15:59)
[2016-07-08] MEDS: INSULIN DETEMIR 300 UNITS/3 ML INSULN.PEN. SQ SCH (09:00)
--- NOTE | 2016-07-08 09:04 | PDOC ---
Dialysis Progress Note Dialysis Note Dialysis Note Seen on Hemodialysis, tolerating treatment Well Vitals on Hemodialysis: 147/64 73 afeb General Appearance: Awake: Alert Oriented x 3 Neck: No JVD or JVP Chest: CTA Jeramy Heart: S1 S2 Abdomen - Soft NTND Extremities - No Edema ESRD: Dialysis as below F 180 NR 4.0 Hrs 3 K 2.5 Ca 140 Na 40 HC03 Qb 350 + Qd 500+ Heparin 0 Units Uf 0-1 Kgs or to dry weight as tolerated (pt weighed below D/wt) May give 25-50 gms of 25% Albumin if needed to maintain Hemodynamic stability Treatment plan reviewed and discussed with self propelled hot mix roller operator Vitals Vital Signs Vital Signs Date Time Temp Pulse Resp B/P Pulse Ox O2 Delivery O2 Flow Rate FiO2 07/08/16 03:00 98.6 69 18 137/60 97 98.6 07/07/16 15:00 Room Air Labs Last Labs Laboratory Tests Test 07/06/16 16:00 07/06/16 17:50 07/06/16 20:50 07/07/16 04:40 White Blood Count 9.0x10^3/uL (4.0-11.0) 9.4x10^3/uL (4.0-11.0) Red Blood Count 5.53x10^6/uL (4.30-5.70) 4.72x10^6/uL (4.30-5.70) Hemoglobin 13.3g/dL (13.0-17.5) 11.3g/dL (13.0-17.5) Hematocrit 42.4% (39.0-53.0) 36.9% (39.0-53.0) Mean Corpuscular Volume 77fL (79-100) 78fL (79-100) Mean Corpuscular Hemoglobin 24pg (25-35) 24pg (25-35) Mean Corpuscular Hemoglobin Concent 31g/dL (31-37) 31g/dL (31-37) Red Cell Distribution Width 20.5% (11.5-14.5) 20.6% (11.5-14.5) Platelet Count 235x10^3/uL (140-400) 211x10^3/uL (140-400) Neutrophils (%) (Auto) 56% (31-73) 48% (31-73) Lymphocytes (%) (Auto) 26% (24-48) 27% (24-48) Monocytes (%) (Auto) 10% (0-9) 13% (0-9) Eosinophils (%) (Auto) 8% (0-3) 13% (0-3) Basophils (%) (Auto) 0% (0-3) 0% (0-3) Neutrophils # (Auto) 5.0x10^3uL (1.8-7.7) 4.5x10^3uL (1.8-7.7) Lymphocytes # (Auto) 2.4x10^3/uL (1.0-4.8) 2.5x10^3/uL (1.0-4.8) Monocytes # (Auto) 0.9x10^3/uL (0.0-1.1) 1.2x10^3/uL (0.0-1.1) Eosinophils # (Auto) 0.7x10^3/uL (0.0-0.7) 1.2x10^3/uL (0.0-0.7) Basophils # (Auto) 0.0x10^3/uL (0.0-0.2) 0.0x10^3/uL (0.0-0.2) Platelet Estimate Adequate (ADEQUATE) Adequate (ADEQUATE) Hypochromasia Slight Slight Anisocytosis Slight Mod Microcytosis Slight Present Sodium Level 142mmol/L (136-145) 145mmol/L (136-145) Potassium Level 5.0mmol/L (3.5-5.1) 4.8mmol/L (3.5-5.1) Chloride Level 103mmol/L (98-107) 106mmol/L (98-107) Carbon Dioxide Level 24mmol/L (21-32) 26mmol/L (21-32) Anion Gap 15 (6-14) 13 (6-14) Blood Urea Nitrogen 32mg/dL (8-26) 37mg/dL (8-26) Creatinine 6.5mg/dL (0.7-1.3) 7.5mg/dL (0.7-1.3) Estimated GFR (Cockcroft-Gault) 10.2 8.7 BUN/Creatinine Ratio 5 (6-20) Glucose Level 171mg/dL (70-99) 143mg/dL (70-99) Calcium Level 10.0mg/dL (8.5-10.1) 9.4mg/dL (8.5-10.1) Magnesium Level 2.1mg/dL (1.8-2.4) Total Bilirubin 0.3mg/dL (0.2-1.0) Aspartate Amino Transf (AST/SGOT) 24U/L (15-37) Alanine Aminotransferase (ALT/SGPT) 29U/L (16-63) Alkaline Phosphatase 72U/L (46-116) Troponin I Quantitative 0.038ng/mL (0.000-0.055) 0.080ng/mL (0.000-0.055) Total Protein 8.7g/dL (6.4-8.2) Albumin 3.4g/dL (3.4-5.0) Albumin/Globulin Ratio 0.6 (1.0-1.7) Urine Collection Type U cath Urine Color Yellow Urine Clarity Cloudy Urine pH 7.5 Urine Specific [place] 1.015 Urine Protein >=300mg/dL (NEG-TRACE) Urine Glucose (UA) 100mg/dL (NEG) Urine Ketones (Stick) Negativemg/dL (NEG) Urine Blood Large (NEG) Urine Nitrite Negative (NEG) Urine Bilirubin Negative (NEG) Urine Urobilinogen Dipstick 0.2mg/dL (0.2 mg/dL) Urine Leukocyte Esterase Large (NEG) Urine RBC 3-5/HPF (0-2) Urine WBC Tntc/HPF (0-4) Urine Squamous Epithelial Cells Many/LPF Urine Transitional Epithelial Cells Occ/LPF Urine Renal Epithelial Cells Occ/LPF Urine Bacteria Few/HPF (0-FEW) Urine Mucus Marked/LPF Glucose (Fingerstick) 110mg/dL (70-99) Segmented Neutrophils % 60% (35-66) Lymphocytes % 17% (24-48) Atypical Lymphocytes % (Manual) 1% (0-0) Monocytes % 11% (0-10) Eosinophils % 10% (0-5) Basophils % 1% (0-3) Ovalocytes Few Test 07/07/16 07:35 07/07/16 08:08 07/07/16 11:04 07/07/16 16:44 Glucose (Fingerstick) 125mg/dL (70-99) 119mg/dL (70-99) 165mg/dL (70-99) 112mg/dL (70-99) Test 07/07/16 17:40 07/07/16 21:11 07/08/16 03:47 07/08/16 07:35 Prothrombin Time 14.0SEC (11.7-14.0) 13.8SEC (11.7-14.0) Prothromb Time International Ratio 1.2 (0.8-1.1) 1.1 (0.8-1.1) Glucose (Fingerstick) 206mg/dL (70-99) 173mg/dL (70-99) Triglycerides Level 113mg/dL (0-150) Cholesterol Level 126mg/dL (0-200) LDL Cholesterol, Calculated 55mg/dL (0-100) VLDL Cholesterol, Calculated 23mg/dL (0-40) HDL Cholesterol 48mg/dL (40-60) Cholesterol/HDL Ratio 2.6 Laboratory Tests Test 07/07/16 11:04 07/07/16 16:44 07/07/16 17:40 07/07/16 21:11 Glucose (Fingerstick) 165mg/dL (70-99) 112mg/dL (70-99) 206mg/dL (70-99) Prothrombin Time 14.0SEC (11.7-14.0) Prothromb Time International Ratio 1.2 (0.8-1.1) Test 07/08/16 03:47 07/08/16 07:35 Prothrombin Time 13.8SEC (11.7-14.0) Prothromb Time International Ratio 1.1 (0.8-1.1) Triglycerides Level 113mg/dL (0-150) Cholesterol Level 126mg/dL (0-200) LDL Cholesterol, Calculated 55mg/dL (0-100) VLDL Cholesterol, Calculated 23mg/dL (0-40) HDL Cholesterol 48mg/dL (40-60) Cholesterol/HDL Ratio 2.6 Glucose (Fingerstick) 173mg/dL (70-99) Assessment Assessment Problems Medical Problems: (1) Seizure Status: Acute (2) Stroke Status: Acute Problems: Plan Plan of Care Problems Medical Problems: (1) Seizure Status: Acute (2) Stroke Status: Acute NELSON,ACHAL K MD Jul 08, 2016 09:04
--- NOTE | 2016-07-08 11:00 | PDOC ---
Subjective: Subjective: Nausea and loose stool this morning. Objective: Objective: Per RN - sent stool for C Diff, having loose stools. Warfarin started yesterday. quantitative research analyst - 4 loose stools during dialysis. Vital Signs: Vital Signs Date Time Temp Pulse Resp B/P Pulse Ox O2 Delivery O2 Flow Rate FiO2 07/08/16 07:30 Room Air 07/08/16 07:00 98.4 68 18 146/69 91 98.4 Labs: Laboratory Tests Test 07/07/16 11:04 07/07/16 16:44 07/07/16 21:11 07/08/16 07:35 Glucose (Fingerstick) 165mg/dL (70-99) 112mg/dL (70-99) 206mg/dL (70-99) 173mg/dL (70-99) PE: GEN: NAD, dialyzing LUNGS: clear anteriorly HEART: S1S2 ABD: NABS, S/ND/NT NEURO/PSYCH: A & O 3 A/P: Syncope, subacute stroke, A Fib, HTN, ESRD on HD -started on Warfarin H/o duodenal ulcer, nausea -2014, required endotherapy -previously on H2 [place] for belching, start PPI yesterday Diarrhea -new onset, watery stools -- Continue PPI. Await C Diff. PAULINA KAT Jul 08, 2016 11:00
--- NOTE | 2016-07-08 11:02 | PDOC ---
DIAMOND CHAMBERS MANAGER ENROLLMENT 07/08/16 1102: CARDIO Progress Notes Date and Time Date of Service 07/08/2016 Time of Evaluation 1056 Subjective Subjective: No Chest Pain, No shortness of breath, No Palpitations, No Dizziness Comments: seen in hemodialysis room - no isolation stethoscope available Vitals Vitals Vital Signs Date Time Temp Pulse Resp B/P Pulse Ox O2 Delivery O2 Flow Rate FiO2 07/08/16 07:30 Room Air 07/08/16 07:00 98.4 68 18 146/69 91 98.4 Weight Weight [ ] Input and Output Intake and Output Intake and Output 07/08/16 07:00 Intake Total 300 ml Output Total 50 ml Balance 250 ml Intake Oral 300 ml Output Urine Total 50 ml # Voids 2 Laboratory Labs Laboratory Tests Test 07/07/16 11:04 07/07/16 16:44 07/07/16 17:40 07/07/16 21:11 Glucose (Fingerstick) 165mg/dL (70-99) 112mg/dL (70-99) 206mg/dL (70-99) Prothrombin Time 14.0SEC (11.7-14.0) Prothromb Time International Ratio 1.2 (0.8-1.1) Test 07/08/16 03:47 07/08/16 07:35 Prothrombin Time 13.8SEC (11.7-14.0) Prothromb Time International Ratio 1.1 (0.8-1.1) Triglycerides Level 113mg/dL (0-150) Cholesterol Level 126mg/dL (0-200) LDL Cholesterol, Calculated 55mg/dL (0-100) VLDL Cholesterol, Calculated 23mg/dL (0-40) HDL Cholesterol 48mg/dL (40-60) Cholesterol/HDL Ratio 2.6 Glucose (Fingerstick) 173mg/dL (70-99) Microbiology Micro Microbiology 07/06/16 Urine Culture - Final, Complete 07/06/16 Urine Culture Result 1 (YON) - Final, Complete Assessment Assessment 1. atrial fibrillation/tachydysrhythmias dual chamber PPM - Biotronik - NOT MRI COMPATIBLE PPM interrogation with increasing atrial fib burden and in atrial fib 100% of the time in the last week -- BB increased 07/07 to improve rate control [id number] = 5 now; high risk for stroke; OAC stopped 2014 after duodenal ulcer bleed and was treated by GI and has been on only ASA 81 mg since then GI consult obtained - OAC with INR around 2; continue PPI warfarin starte 07/07/2016 2. subacute right parietal stroke likely due to atrial fib echo with preserved LVEF and intact intraatrial septum per Neuro 3. HTN improved control 4. ESRD with HD per nephrology 5. LDLs controlled @ 55 without statin therapy ELENA REYNOLDS MD 07/08/16 1510: CARDIO Progress Notes Assessment Assessment Patient seen and examined. Agree with WIRELESS TECHNICIAN's assessment and plan. Atrial fibrillation rate better controlled. Oral anticoagulation with Coumadin initiated yesterday due to the presenting symptoms of TIA Continue hemodialysis per nephrology team DIAMOND CHAMBERS APRN Jul 08, 2016 11:02 ELENA REYNOLDS MD Jul 08, 2016 15:10
--- NOTE | 2016-07-08 11:04 | PDOC ---
PROGRESS NOTES Assessment Problems Medical Problems: (1) Seizure Status: Acute (2) Stroke Status: Acute Possible seizure, EEG negative. In this patient with renal disease and diabetes , metabolic factors could have been at fault Subacute right parietal stroke on the CT Peripheral neuropathy Recommendations: EEG I had the nurse check with cardiology, his pacemaker is not MRI compatible, so I will repeat the CT scan with contrast, coordinating with dialysis, tomorrow Carotid Doppler's Rehabilitation screen Obviously this stroke happened several weeks ago and he was not a candidate for tissue plasminogen activator. Holding on anticonvulsants I discussed my findings with the patient and his . Plan I discussed risk, benefits, alternatives, side effects with the patient and given his current life situation, he is not driving, for instance, I believe the risks outweigh the benefits of starting anticonvulsants The patient will contact me immediately if he has another seizure, though, and I would start anticonvulsants. Neurology workup is complete, okay for discharge when medically stable. Objective Vital Signs Date Time Temp Pulse Resp B/P Pulse Ox O2 Delivery O2 Flow Rate FiO2 07/08/16 07:30 Room Air 07/08/16 07:00 98.4 68 18 146/69 91 98.4 Intake and Output 07/08/16 07:00 Intake Total 300 ml Output Total 50 ml Balance 250 ml Intake Oral 300 ml Output Urine Total 50 ml # Voids 2 PHYSICAL EXAM Alert. Oriented to time, place and person. PERRL. EOMI. CN: no focal findings. Muscle tone: normal. Muscle strength: 5/5 DTR: 1+ Plantar reflex: flexor Gait: not examined in bed. Sensory exam: stocking loss. No cerebellar signs elicited. Review of Relevant I have reviewed the following items vanessa (where applicable) has been applied. Labs Laboratory Tests Test 07/06/16 16:00 07/06/16 17:50 07/06/16 20:50 07/07/16 04:40 White Blood Count 9.0x10^3/uL (4.0-11.0) 9.4x10^3/uL (4.0-11.0) Red Blood Count 5.53x10^6/uL (4.30-5.70) 4.72x10^6/uL (4.30-5.70) Hemoglobin 13.3g/dL (13.0-17.5) 11.3g/dL (13.0-17.5) Hematocrit 42.4% (39.0-53.0) 36.9% (39.0-53.0) Mean Corpuscular Volume 77fL (79-100) 78fL (79-100) Mean Corpuscular Hemoglobin 24pg (25-35) 24pg (25-35) Mean Corpuscular Hemoglobin Concent 31g/dL (31-37) 31g/dL (31-37) Red Cell Distribution Width 20.5% (11.5-14.5) 20.6% (11.5-14.5) Platelet Count 235x10^3/uL (140-400) 211x10^3/uL (140-400) Neutrophils (%) (Auto) 56% (31-73) 48% (31-73) Lymphocytes (%) (Auto) 26% (24-48) 27% (24-48) Monocytes (%) (Auto) 10% (0-9) 13% (0-9) Eosinophils (%) (Auto) 8% (0-3) 13% (0-3) Basophils (%) (Auto) 0% (0-3) 0% (0-3) Neutrophils # (Auto) 5.0x10^3uL (1.8-7.7) 4.5x10^3uL (1.8-7.7) Lymphocytes # (Auto) 2.4x10^3/uL (1.0-4.8) 2.5x10^3/uL (1.0-4.8) Monocytes # (Auto) 0.9x10^3/uL (0.0-1.1) 1.2x10^3/uL (0.0-1.1) Eosinophils # (Auto) 0.7x10^3/uL (0.0-0.7) 1.2x10^3/uL (0.0-0.7) Basophils # (Auto) 0.0x10^3/uL (0.0-0.2) 0.0x10^3/uL (0.0-0.2) Platelet Estimate Adequate (ADEQUATE) Adequate (ADEQUATE) Hypochromasia Slight Slight Anisocytosis Slight Mod Microcytosis Slight Present Sodium Level 142mmol/L (136-145) 145mmol/L (136-145) Potassium Level 5.0mmol/L (3.5-5.1) 4.8mmol/L (3.5-5.1) Chloride Level 103mmol/L (98-107) 106mmol/L (98-107) Carbon Dioxide Level 24mmol/L (21-32) 26mmol/L (21-32) Anion Gap 15 (6-14) 13 (6-14) Blood Urea Nitrogen 32mg/dL (8-26) 37mg/dL (8-26) Creatinine 6.5mg/dL (0.7-1.3) 7.5mg/dL (0.7-1.3) Estimated GFR (Cockcroft-Gault) 10.2 8.7 BUN/Creatinine Ratio 5 (6-20) Glucose Level 171mg/dL (70-99) 143mg/dL (70-99) Calcium Level 10.0mg/dL (8.5-10.1) 9.4mg/dL (8.5-10.1) Magnesium Level 2.1mg/dL (1.8-2.4) Total Bilirubin 0.3mg/dL (0.2-1.0) Aspartate Amino Transf (AST/SGOT) 24U/L (15-37) Alanine Aminotransferase (ALT/SGPT) 29U/L (16-63) Alkaline Phosphatase 72U/L (46-116) Troponin I Quantitative 0.038ng/mL (0.000-0.055) 0.080ng/mL (0.000-0.055) Total Protein 8.7g/dL (6.4-8.2) Albumin 3.4g/dL (3.4-5.0) Albumin/Globulin Ratio 0.6 (1.0-1.7) Urine Collection Type U cath Urine Color Yellow Urine Clarity Cloudy Urine pH 7.5 Urine Specific [place] 1.015 Urine Protein >=300mg/dL (NEG-TRACE) Urine Glucose (UA) 100mg/dL (NEG) Urine Ketones (Stick) Negativemg/dL (NEG) Urine Blood Large (NEG) Urine Nitrite Negative (NEG) Urine Bilirubin Negative (NEG) Urine Urobilinogen Dipstick 0.2mg/dL (0.2 mg/dL) Urine Leukocyte Esterase Large (NEG) Urine RBC 3-5/HPF (0-2) Urine WBC Tntc/HPF (0-4) Urine Squamous Epithelial Cells Many/LPF Urine Transitional Epithelial Cells Occ/LPF Urine Renal Epithelial Cells Occ/LPF Urine Bacteria Few/HPF (0-FEW) Urine Mucus Marked/LPF Glucose (Fingerstick) 110mg/dL (70-99) Segmented Neutrophils % 60% (35-66) Lymphocytes % 17% (24-48) Atypical Lymphocytes % (Manual) 1% (0-0) Monocytes % 11% (0-10) Eosinophils % 10% (0-5) Basophils % 1% (0-3) Ovalocytes Few Test 07/07/16 07:35 07/07/16 08:08 07/07/16 11:04 07/07/16 16:44 Glucose (Fingerstick) 125mg/dL (70-99) 119mg/dL (70-99) 165mg/dL (70-99) 112mg/dL (70-99) Test 07/07/16 17:40 07/07/16 21:11 07/08/16 03:47 07/08/16 07:35 Prothrombin Time 14.0SEC (11.7-14.0) 13.8SEC (11.7-14.0) Prothromb Time International Ratio 1.2 (0.8-1.1) 1.1 (0.8-1.1) Glucose (Fingerstick) 206mg/dL (70-99) 173mg/dL (70-99) Triglycerides Level 113mg/dL (0-150) Cholesterol Level 126mg/dL (0-200) LDL Cholesterol, Calculated 55mg/dL (0-100) VLDL Cholesterol, Calculated 23mg/dL (0-40) HDL Cholesterol 48mg/dL (40-60) Cholesterol/HDL Ratio 2.6 Laboratory Tests Test 07/07/16 11:04 07/07/16 16:44 07/07/16 17:40 07/07/16 21:11 Glucose (Fingerstick) 165mg/dL (70-99) 112mg/dL (70-99) 206mg/dL (70-99) Prothrombin Time 14.0SEC (11.7-14.0) Prothromb Time International Ratio 1.2 (0.8-1.1) Test 07/08/16 03:47 07/08/16 07:35 Prothrombin Time 13.8SEC (11.7-14.0) Prothromb Time International Ratio 1.1 (0.8-1.1) Triglycerides Level 113mg/dL (0-150) Cholesterol Level 126mg/dL (0-200) LDL Cholesterol, Calculated 55mg/dL (0-100) VLDL Cholesterol, Calculated 23mg/dL (0-40) HDL Cholesterol 48mg/dL (40-60) Cholesterol/HDL Ratio 2.6 Glucose (Fingerstick) 173mg/dL (70-99) Microbiology 07/06/16 Urine Culture - Final, Complete 07/06/16 Urine Culture Result 1 (YON) - Final, Complete Medications Current Medications Diltiazem HCl (Cardizem 24hr Cd) 240 mg DAILY PO Last administered on 09:10; Start 07/06/16 at 19:00 Metoprolol Tartrate (Lopressor) 12.5 mg 1X ONCE PO Last administered on 19:01; Start 07/06/16 at 18:45; Stop 07/06/16 at 18:48; Status DC Insulin Aspart (Novolog) 0-9 UNITS TIDACHC SQ Last administered on 07/07/16 21 :19; Start 07/07/16 at 07:30 Dextrose 12.5 gm PRN Q15MIN PRN IV SEE COMMENTS; Start 07/06/16 at 21:45 Aspirin (Children'S Aspirin) 81 mg DAILY PO Last administered on 07/07/16 09: 10; Start 07/07/16 at 09:00 Finasteride (Proscar) 10 mg DAILY PO Last administered on 07/07/16 09:11; Start 07/07/16 at 09:00 Furosemide (Lasix) 40 mg [id number] PO Last administered on 07/07/16 15:58; Start 07/07/16 at 09:00 Metoprolol Tartrate (Lopressor) 12.5 mg BID PO Last administered on 07/07/16 09:11; Start 07/06/16 at 23:00; Stop 07/07/16 at 13:18; Status DC Tamsulosin HCl (Flomax) 0.4 mg BID PO Last administered on 3/20/17at 21:13; Start 07/06/16 at 23:00 Non-Formulary Medication 2 puff PRN PRN IH WHEEZING; Start 07/06/16 at 22:45; Status UNV Vitamin B Complex/ Vitamin C (Nephro-Jeanmarie) 1 tab DAILY PO Last administered on 07/07/16 09:10; Start 07/07/16 at 09:00 Insulin Detemir (Levemir) 30 units DAILY SQ ; Start 07/07/16 at 09:00 Non-Formulary Medication 2 puff PRN BID PRN INH SHORTNESS OF BREATH; Start at 22:45; Status UNV Albuterol Sulfate (Ventolin Neb Soln) 2.5 mg RTQID NEB ; Start 07/07/16 at 08:00 ; Stop 07/07/16 at 12:16; Status DC Budesonide (Pulmicort) 0.5 mg RTBID NEB ; Start 07/07/16 at 08:00; Stop at 12:16; Status DC Benzocaine (Ora-Jel) 1 antwon PRN QID PRN TP ORAL PAIN; Start 07/06/16 at 23:00; Stop 07/06/16 at 23:09; Status DC Acetaminophen (Tylenol) 650 mg PRN Q6HRS PRN PO MILD PAIN / TEMP; Start at 23:15 Benzocaine (Ora-Jel Baby) 1 antwon PRN QID PRN TP ORAL PAIN Last administered on 23:16; Start 07/06/16 at 23:09 Albuterol Sulfate (Ventolin Neb Soln) 2.5 mg PRN QID PRN NEB SHORTNESS OF BREATH; Start 07/07/16 at 12:15 Metoprolol Tartrate (Lopressor) 25 mg BID PO Last administered on 07/07/16 21: 14; Start 07/07/16 at 21:00 Pantoprazole Sodium (Protonix) 40 mg DAILYAC PO Last administered on 07/07/16 15:58; Start 07/07/16 at 15:00 Warfarin Sodium (Coumadin Per Pharmacy) 1 each PRN DAILY PRN MC SEE COMMENTS Last administered on 07/07/16 18:27; Start 07/07/16 at 17:15 Warfarin Sodium (Coumadin) 7.5 mg 1X WARF ONCE PO Last administered on 19:45; Start 07/07/16 at 19:00; Stop 07/07/16 at 19:01; Status DC Ondansetron HCl (Zofran) 4 mg PRN Q8HRS PRN IV NAUSEA/VOMITING Last administered on 07/08/16 07:49; Start 07/08/16 at 07:45 Iohexol (Omnipaque 300 Mg/ml) 75 ml 1X ONCE IV Last administered on 07/08/16 08:12; Start 07/08/16 at 08:00; Stop 07/08/16 at 08:01; Status DC Lidocaine HCl 2 ml 2 ml STK-MED ONCE .ROUTE ; Start 07/08/16 at 08:46; Stop at 08:47; Status DC Magnesium Sulfate/ Dextrose (Magnesium Sulfate PREMIX 2GM) 50 ml @ 25 mls/hr PRN DAILY PRN IV for Mag < 1.7 on am labs; Start 07/08/16 at 09:00 Active Scripts Active Metoprolol Tartrate 25 Mg Tablet 12.5 Mg PO BID Reported Aspirin 81 Mg Tab.chew 1 Tab PO DAILY Levemir (Insulin Detemir) 100 Unit/1 Ml Vial 30 Unit SQ DAILY Proscar (Finasteride) 5 Mg Tablet 2 Tab PO DAILY Flomax (Tamsulosin Hcl) 0.4 Mg Cap.er.24h 1 Cap PO BID [insulin w/dex] Furosemide 40 Mg Tablet 40 Mg PO BID [Symbicort] 2 Puff INH PRN BID PRN Flovent 110MCG Hfa (Fluticasone Propionate) 12 Gm Aer.w.adap 2 Puff IH PRN PRN Renal Caps Softgel (Folic Acid/Vitamin B Comp W-C) 1 Mg Capsule 1 Cap PO DAILY Vitals/I & O Vital Sign - Last 24 Hours 07/07/16 07/07/16 07/07/16 07/07/16 11:00 15:00 19:00 21:14 Temp 98.1 98.3 98.3 98.1 98.3 98.3 Pulse 69 70 75 69 Resp 18 18 18 B/P 144/67 133/59 138/64 150/64 Pulse Ox 97 98 97 O2 Delivery Room Air Room Air 07/07/16 07/08/16 07/08/16 3/21/17 23:00 03:00 07:00 07:30 Temp 98.6 98.6 98.4 98.6 98.6 98.4 Pulse 76 69 68 Resp 18 18 18 B/P 140/65 137/60 146/69 Pulse Ox 98 97 91 O2 Delivery Room Air Room Air Intake and Output 07/07/16 07/07/16 07/08/16 15:00 23:00 07:00 Intake Total 120 ml 180 ml 0 ml Output Total 50 ml Balance 120 ml 130 ml 0 ml Images EEG: Normal CT head repeat with or without contrast, no acute disease, radiology interpretation pending Carotid Dopplers: No evidence of hemodynamically significant stenosis at either carotid bifurcation. Stenosis 0-50%. Echo: LEFT VENTRICLE The left ventricle is normal size. There is normal left ventricular wall thickness. The left ventricular systolic function is normal and the ejection fraction is within normal range. The Ejection Fraction is 55-60%. There is normal LV segmental wall motion. RIGHT VENTRICLE The right ventricle is normal size. The right ventricular systolic function is normal. ATRIA The left atrium is mildly dilated. The right atrium size is normal. The interatrial septum is intact with no evidence for an atrial septal defect or patent foramen ovale as noted on 2-D or Doppler imaging. Injection of bubbles documented no interatrial shunt. AORTIC VALVE The aortic valve is calcified but opens well. Doppler and Color Flow revealed no significant aortic regurgitation. There is no significant aortic valvular stenosis. MITRAL VALVE The mitral valve is calcified but opens well. There is no evidence of mitral valve prolapse. There is no mitral valve stenosis. Doppler and Color-flow revealed mild mitral regurgitation. TRICUSPID VALVE The tricuspid valve is normal in structure and function. Doppler and Color Flow revealed mild tricuspid regurgitation. The PA pressure was estimated at 30 mmHg. There is mild pulmonary hypertension. There is no tricuspid valve stenosis. PULMONIC VALVE The pulmonary valve is normal in structure and function. Doppler and Color Flow revealed trace pulmonic valvular regurgitation. There is no pulmonic valvular stenosis. GREAT VESSELS The aortic root is normal in size. The ascending aorta is normal in size. The IVC is normal in size and collapses >50% with inspiration. PERICARDIAL EFFUSION There is no evidence of significant pericardial effusion. Critical Notification Critical Value: No <Conclusion> The left ventricular systolic function is normal and the ejection fraction is within normal range. The Ejection Fraction is 55-60%. There is normal LV segmental wall motion. The interatrial septum is intact with no evidence for an atrial septal defect or patent foramen ovale as noted on 2-D or Doppler imaging. Injection of bubbles documented no interatrial shunt. No significant valvular disease. JOSEPH HILLMAN MD Jul 08, 2016 11:04
--- NOTE | 2016-07-08 11:07 | RAD ---
CT of the head with and without contrast, 07/08/2016: History: CVA follow-up Multidetector CT imaging was performed prior to and following an IV bolus injection of iodinated contrast material. Comparison is made to a study from 07/06/2016. There is an unchanged small lucency in the right parietal lobe involving the [place] and white matter. There is no associated mass effect or hemorrhage. No abnormal postcontrast enhancement is seen in this region. The findings suggest a subacute infarct. The ventricles are within normal limits in size. There is no shift of the midline structures. There are mild patchy areas of decreased density in the deep white matter bilaterally compatible with chronic ischemic change. The postcontrast scans show no areas of abnormal enhancement. IMPRESSION: 1. Small right parietal cerebral lucency most compatible with a subacute infarct. 2. Mild patchy deep white matter lucencies bilaterally compatible with chronic microvascular ischemia. 3. No significant change since 07/06/2016. PQRS Compliance Statement: One or more of the following individualized dose reduction techniques were utilized for this examination: 1. Automated exposure control 2. Adjustment of the mA and/or kV according to patient size 3. Use of iterative reconstruction technique
[2016-07-08] MEDS ORDERED: IV NORMAL SALINE 1000ML BAG 1,000 ML IV PRN (11:27)
[2016-07-08] MEDS ORDERED: ALBUMIN HUMAN 25% 200 ML IV PRN (11:30)
[2016-07-08] MEDS ORDERED: LIDOCAINE 1% PF 2 ML VIAL. INJ ONE (11:30)
[2016-07-08] MEDS ORDERED: LEVOFLOXACIN 500 MG TABLET PO SCH (11:30)
[2016-07-08] MEDS ORDERED: DIALYSIS PATIENT. MC PRN (11:30)
--- NOTE | 2016-07-08 11:31 | PDOC ---
PROGRESS NOTES Chief Complaint Chief Complaint new diarrhea syncope, MS change TIA, DM2 obesity Possible seizure Subacute right parietal stroke on the CT Peripheral neuropathy History of Present Illness History of Present Illness diarrhea this AM, w/ nausea, has worsened, about 10 stools at HD feels ill Vitals Vitals Vital Signs Date Time Temp Pulse Resp B/P Pulse Ox O2 Delivery O2 Flow Rate FiO2 07/08/16 11:00 OFF Unit 07/08/16 07:00 98.4 68 18 146/69 91 98.4 Physical Exam General: Alert, Oriented X3, Cooperative, mild distress Heart: Regular rate, Normal S1, Normal S2, No murmurs, Other (PPM left pectoral region well healed) Lungs: Clear Abdomen: Normal bowel sounds, Soft Extremities: No edema, Normal pulses Skin: No rashes Labs LABS Laboratory Tests Test 07/07/16 16:44 07/07/16 17:40 07/07/16 21:11 07/08/16 03:47 Glucose (Fingerstick) 112mg/dL (70-99) 206mg/dL (70-99) Prothrombin Time 14.0SEC (11.7-14.0) 13.8SEC (11.7-14.0) Prothromb Time International Ratio 1.2 (0.8-1.1) 1.1 (0.8-1.1) Triglycerides Level 113mg/dL (0-150) Cholesterol Level 126mg/dL (0-200) LDL Cholesterol, Calculated 55mg/dL (0-100) VLDL Cholesterol, Calculated 23mg/dL (0-40) HDL Cholesterol 48mg/dL (40-60) Cholesterol/HDL Ratio 2.6 Test 07/08/16 07:35 Glucose (Fingerstick) 173mg/dL (70-99) Review of Systems Review of Systems nausea and diarrhea no pain Assessment and Plan Assessmemt and Plan GI following, c. diff pending, diarrhea is worsening, FLagyl started, vitals still good consult ID UA on admit contam with squamous cells, + bacteruria, Problems Medical Problems: (1) Seizure Status: Acute (2) Stroke Status: Acute Problems: Comment Review of Relevant I have reviewed the following items vanessa (where applicable) has been applied. Labs Laboratory Tests Test 07/06/16 16:00 07/06/16 17:50 07/06/16 20:50 07/07/16 04:40 White Blood Count 9.0x10^3/uL (4.0-11.0) 9.4x10^3/uL (4.0-11.0) Red Blood Count 5.53x10^6/uL (4.30-5.70) 4.72x10^6/uL (4.30-5.70) Hemoglobin 13.3g/dL (13.0-17.5) 11.3g/dL (13.0-17.5) Hematocrit 42.4% (39.0-53.0) 36.9% (39.0-53.0) Mean Corpuscular Volume 77fL (79-100) 78fL (79-100) Mean Corpuscular Hemoglobin 24pg (25-35) 24pg (25-35) Mean Corpuscular Hemoglobin Concent 31g/dL (31-37) 31g/dL (31-37) Red Cell Distribution Width 20.5% (11.5-14.5) 20.6% (11.5-14.5) Platelet Count 235x10^3/uL (140-400) 211x10^3/uL (140-400) Neutrophils (%) (Auto) 56% (31-73) 48% (31-73) Lymphocytes (%) (Auto) 26% (24-48) 27% (24-48) Monocytes (%) (Auto) 10% (0-9) 13% (0-9) Eosinophils (%) (Auto) 8% (0-3) 13% (0-3) Basophils (%) (Auto) 0% (0-3) 0% (0-3) Neutrophils # (Auto) 5.0x10^3uL (1.8-7.7) 4.5x10^3uL (1.8-7.7) Lymphocytes # (Auto) 2.4x10^3/uL (1.0-4.8) 2.5x10^3/uL (1.0-4.8) Monocytes # (Auto) 0.9x10^3/uL (0.0-1.1) 1.2x10^3/uL (0.0-1.1) Eosinophils # (Auto) 0.7x10^3/uL (0.0-0.7) 1.2x10^3/uL (0.0-0.7) Basophils # (Auto) 0.0x10^3/uL (0.0-0.2) 0.0x10^3/uL (0.0-0.2) Platelet Estimate Adequate (ADEQUATE) Adequate (ADEQUATE) Hypochromasia Slight Slight Anisocytosis Slight Mod Microcytosis Slight Present Sodium Level 142mmol/L (136-145) 145mmol/L (136-145) Potassium Level 5.0mmol/L (3.5-5.1) 4.8mmol/L (3.5-5.1) Chloride Level 103mmol/L (98-107) 106mmol/L (98-107) Carbon Dioxide Level 24mmol/L (21-32) 26mmol/L (21-32) Anion Gap 15 (6-14) 13 (6-14) Blood Urea Nitrogen 32mg/dL (8-26) 37mg/dL (8-26) Creatinine 6.5mg/dL (0.7-1.3) 7.5mg/dL (0.7-1.3) Estimated GFR (Cockcroft-Gault) 10.2 8.7 BUN/Creatinine Ratio 5 (6-20) Glucose Level 171mg/dL (70-99) 143mg/dL (70-99) Calcium Level 10.0mg/dL (8.5-10.1) 9.4mg/dL (8.5-10.1) Magnesium Level 2.1mg/dL (1.8-2.4) Total Bilirubin 0.3mg/dL (0.2-1.0) Aspartate Amino Transf (AST/SGOT) 24U/L (15-37) Alanine Aminotransferase (ALT/SGPT) 29U/L (16-63) Alkaline Phosphatase 72U/L (46-116) Troponin I Quantitative 0.038ng/mL (0.000-0.055) 0.080ng/mL (0.000-0.055) Total Protein 8.7g/dL (6.4-8.2) Albumin 3.4g/dL (3.4-5.0) Albumin/Globulin Ratio 0.6 (1.0-1.7) Urine Collection Type U cath Urine Color Yellow Urine Clarity Cloudy Urine pH 7.5 Urine Specific Hindman 1.015 Urine Protein >=300mg/dL (NEG-TRACE) Urine Glucose (UA) 100mg/dL (NEG) Urine Ketones (Stick) Negativemg/dL (NEG) Urine Blood Large (NEG) Urine Nitrite Negative (NEG) Urine Bilirubin Negative (NEG) Urine Urobilinogen Dipstick 0.2mg/dL (0.2 mg/dL) Urine Leukocyte Esterase Large (NEG) Urine RBC 3-5/HPF (0-2) Urine WBC Tntc/HPF (0-4) Urine Squamous Epithelial Cells Many/LPF Urine Transitional Epithelial Cells Occ/LPF Urine Renal Epithelial Cells Occ/LPF Urine Bacteria Few/HPF (0-FEW) Urine Mucus Marked/LPF Glucose (Fingerstick) 110mg/dL (70-99) Segmented Neutrophils % 60% (35-66) Lymphocytes % 17% (24-48) Atypical Lymphocytes % (Manual) 1% (0-0) Monocytes % 11% (0-10) Eosinophils % 10% (0-5) Basophils % 1% (0-3) Ovalocytes Few Test 07/07/16 07:35 07/07/16 08:08 07/07/16 11:04 07/07/16 16:44 Glucose (Fingerstick) 125mg/dL (70-99) 119mg/dL (70-99) 165mg/dL (70-99) 112mg/dL (70-99) Test 07/07/16 17:40 07/07/16 21:11 07/08/16 03:47 07/08/16 07:35 Prothrombin Time 14.0SEC (11.7-14.0) 13.8SEC (11.7-14.0) Prothromb Time International Ratio 1.2 (0.8-1.1) 1.1 (0.8-1.1) Glucose (Fingerstick) 206mg/dL (70-99) 173mg/dL (70-99) Triglycerides Level 113mg/dL (0-150) Cholesterol Level 126mg/dL (0-200) LDL Cholesterol, Calculated 55mg/dL (0-100) VLDL Cholesterol, Calculated 23mg/dL (0-40) HDL Cholesterol 48mg/dL (40-60) Cholesterol/HDL Ratio 2.6 Laboratory Tests Test 07/07/16 16:44 07/07/16 17:40 07/07/16 21:11 07/08/16 03:47 Glucose (Fingerstick) 112mg/dL (70-99) 206mg/dL (70-99) Prothrombin Time 14.0SEC (11.7-14.0) 13.8SEC (11.7-14.0) Prothromb Time International Ratio 1.2 (0.8-1.1) 1.1 (0.8-1.1) Triglycerides Level 113mg/dL (0-150) Cholesterol Level 126mg/dL (0-200) LDL Cholesterol, Calculated 55mg/dL (0-100) VLDL Cholesterol, Calculated 23mg/dL (0-40) HDL Cholesterol 48mg/dL (40-60) Cholesterol/HDL Ratio 2.6 Test 07/08/16 07:35 Glucose (Fingerstick) 173mg/dL (70-99) Microbiology 07/06/16 Urine Culture - Final, Complete 07/06/16 Urine Culture Result 1 (YON) - Final, Complete Medications Current Medications Diltiazem HCl (Cardizem 24hr Cd) 240 mg DAILY PO Last administered on 09:10; Start 07/06/16 at 19:00 Metoprolol Tartrate (Lopressor) 12.5 mg 1X ONCE PO Last administered on 19:01; Start 07/06/16 at 18:45; Stop 07/06/16 at 18:48; Status DC Insulin Aspart (Novolog) 0-9 UNITS TIDACHC SQ Last administered on 07/07/16 21 :19; Start 07/07/16 at 07:30 Dextrose 12.5 gm PRN Q15MIN PRN IV SEE COMMENTS; Start 07/06/16 at 21:45 Aspirin (Children'S Aspirin) 81 mg DAILY PO Last administered on 07/07/16 09: 10; Start 07/07/16 at 09:00 Finasteride (Proscar) 10 mg DAILY PO Last administered on 07/07/16 09:11; Start 07/07/16 at 09:00 Furosemide (Lasix) 40 mg BID94 PO Last administered on 07/07/16 15:58; Start 07/07/16 at 09:00 Metoprolol Tartrate (Lopressor) 12.5 mg BID PO Last administered on 07/07/16 09:11; Start 07/06/16 at 23:00; Stop 07/07/16 at 13:18; Status DC Tamsulosin HCl (Flomax) 0.4 mg BID PO Last administered on 07/07/16 21:13; Start 07/06/16 at 23:00 Non-Formulary Medication 2 puff PRN PRN IH WHEEZING; Start 07/06/16 at 22:45; Status UNV Vitamin B Complex/ Vitamin C (Nephro-Jeanmarie) 1 tab DAILY PO Last administered on 07/07/16 09:10; Start 07/07/16 at 09:00 Insulin Detemir (Levemir) 30 units DAILY SQ ; Start 07/07/16 at 09:00 Non-Formulary Medication 2 puff PRN BID PRN INH SHORTNESS OF BREATH; Start at 22:45; Status UNV Albuterol Sulfate (Ventolin Neb Soln) 2.5 mg RTQID NEB ; Start 07/07/16 at 08:00 ; Stop 07/07/16 at 12:16; Status DC Budesonide (Pulmicort) 0.5 mg RTBID NEB ; Start 07/07/16 at 08:00; Stop at 12:16; Status DC Benzocaine (Ora-Jel) 1 antwon PRN QID PRN TP ORAL PAIN; Start 07/06/16 at 23:00; Stop 07/06/16 at 23:09; Status DC Acetaminophen (Tylenol) 650 mg PRN Q6HRS PRN PO MILD PAIN / TEMP; Start at 23:15 Benzocaine (Ora-Jel Baby) 1 antwon PRN QID PRN TP ORAL PAIN Last administered on 23:16; Start 07/06/16 at 23:09 Albuterol Sulfate (Ventolin Neb Soln) 2.5 mg PRN QID PRN NEB SHORTNESS OF BREATH; Start 07/07/16 at 12:15 Metoprolol Tartrate (Lopressor) 25 mg BID PO Last administered on 07/07/16 21: 14; Start 07/07/16 at 21:00 Pantoprazole Sodium (Protonix) 40 mg DAILYAC PO Last administered on 07/07/16 15:58; Start 07/07/16 at 15:00 Warfarin Sodium (Coumadin Per Pharmacy) 1 each PRN DAILY PRN MC SEE COMMENTS Last administered on 07/07/16 18:27; Start 07/07/16 at 17:15 Warfarin Sodium (Coumadin) 7.5 mg 1X WARF ONCE PO Last administered on 19:45; Start 07/07/16 at 19:00; Stop 07/07/16 at 19:01; Status DC Ondansetron HCl (Zofran) 4 mg PRN Q8HRS PRN IV NAUSEA/VOMITING Last administered on 07/08/16 07:49; Start 07/08/16 at 07:45 Iohexol (Omnipaque 300 Mg/ml) 75 ml 1X ONCE IV Last administered on 07/08/16 08:12; Start 07/08/16 at 08:00; Stop 07/08/16 at 08:01; Status DC Lidocaine HCl 2 ml 2 ml STK-MED ONCE .ROUTE ; Start 07/08/16 at 08:46; Stop at 08:47; Status DC Magnesium Sulfate/ Dextrose (Magnesium Sulfate PREMIX 2GM) 50 ml @ 25 mls/hr PRN DAILY PRN IV for Mag < 1.7 on am labs; Start 07/08/16 at 09:00 Active Scripts Active Metoprolol Tartrate 25 Mg Tablet 12.5 Mg PO BID Reported Aspirin 81 Mg Tab.chew 1 Tab PO DAILY Levemir (Insulin Detemir) 100 Unit/1 Ml Vial 30 Unit SQ DAILY Proscar (Finasteride) 5 Mg Tablet 2 Tab PO DAILY Flomax (Tamsulosin Hcl) 0.4 Mg Cap.er.24h 1 Cap PO BID [insulin w/dex] Furosemide 40 Mg Tablet 40 Mg PO BID [Symbicort] 2 Puff INH PRN BID PRN Flovent 110MCG Hfa (Fluticasone Propionate) 12 Gm Aer.w.adap 2 Puff IH PRN PRN Renal Caps Softgel (Folic Acid/Vitamin B Comp W-C) 1 Mg Capsule 1 Cap PO DAILY Vitals/I & O Vital Sign - Last 24 Hours 07/07/16 07/07/16 07/07/1607/07/17 15:00 19:00 21:14 23:00 Temp 98.3 98.3 98.6 98.3 98.3 98.6 Pulse 70 75 69 76 Resp 18 18 B/P 133/59 138/64 150/64 140/65 Pulse Ox 98 97 98 O2 Delivery Room Air 07/08/16 07/08/16 07/08/16 07/08/16 03:00 07:00 07:30 11:00 Temp 98.6 98.4 98.6 98.4 Pulse 69 68 Resp B/P 137/60 146/69 Pulse Ox 97 91 O2 Delivery Room Air Room Air OFF Unit Intake and Output 07/07/16 07/07/16 07/08/16 15:00 23:00 07:00 Intake Total 120 ml 180 ml 0 ml Output Total 50 ml Balance 120 ml 130 ml 0 ml PRISCA SANCHEZ MD Jul 08, 2016 11:31
[2016-07-08] MEDS: PANTOPRAZOLE 40 MG TABLET. PO SCH (12:21)
[2016-07-08] MEDS: DILTIAZEM HCL 240 MG CAP.ER.24H PO SCH (13:11)
[2016-07-08] MEDS: FOLIC/VIT B COMP W-C (RENAL) TABLET. PO SCH (13:12)
[2016-07-08] MEDS: TAMSULOSIN 0.4 MG CAP.ER.24H. PO SCH ×2 (13:12→21:26)
[2016-07-08] MEDS: METRONIDAZOLE 500 MG TABLET. PO SCH ×2 (13:12→21:26)
[2016-07-08] MEDS: FINASTERIDE 5 MG TABLET PO SCH (13:12)
[2016-07-08] MEDS: ASPIRIN 81 MG TAB.CHEW PO SCH (13:12)
[2016-07-08] MEDS: METOPROLOL TART IMMED RELEASE 25 MG TABLET PO SCH ×2 (13:13→21:26)
[2016-07-08 14:46] VITALS: BP 159/71
[2016-07-08] MEDS ORDERED: WARFARIN 7.5 MG TABLET. PO ONE (16:00)
[2016-07-08 19:49] VITALS: BP 137/66
[2016-07-08 20:12] LABS: HEP B SURFACE ABDY Non Reactive (.)
[2016-07-08 23:25] VITALS: BP 123/60
[2016-07-09 05:26] LABS: BASO % 0 % (0-3); EOS % 17 % (0-3); HEMATOCRIT 37.1 % (39.0-53.0); HEMOGLOBIN 11.7 g/dL (13.0-17.5); LYMPH # 1.5 x10^3/uL (1.0-4.8); LYMPH % 32 % (24-48); MEAN CORPUSCULAR HEMOGLOBIN 24 pg (25-35); MEAN CORPUSCULAR HGB CONC 32 g/dL (31-37); MEAN CORPUSCULAR VOLUME 77 fL (79-100); MONO % 15 % (0-9); NEUT % 36 % (31-73); PLATELET COUNT 160 x10^3/uL (140-400); RED BLOOD COUNT 4.82 x10^6/uL (4.30-5.70); RED CELL DISTRIBUTION WIDTH 20.6 % (11.5-14.5); WHITE BLOOD COUNT 4.7 x10^3/uL (4.0-11.0)
[2016-07-09] MEDS: METRONIDAZOLE 500 MG TABLET. PO SCH (05:54)
[2016-07-09 05:57] LABS: ALBUMIN 2.9 g/dL (3.4-5.0); ALBUMIN/GLOBULIN RATIO 0.6 (1.0-1.7); CALCIUM 9.1 mg/dL (8.5-10.1); CREATININE 9.9 mg/dL (0.7-1.3); GFR 6.3; PHOSPHORUS 5.5 mg/dL (2.6-4.7); POTASSIUM 4.7 mmol/L (3.5-5.1); TOTAL BILIRUBIN 0.3 mg/dL (0.2-1.0); TOTAL PROTEIN 7.5 g/dL (6.4-8.2)
[2016-07-09 07:00] VITALS: BP_SYST 105; BP_SYST 89; BP_DIAS 42; BP_DIAS 58
[2016-07-09] MEDS: INSULIN ASPART 300 UNITS/3 ML INSULN.PEN SQ SCH ×2 (07:30→12:54)
[2016-07-09] MEDS: INSULIN DETEMIR 300 UNITS/3 ML INSULN.PEN. SQ SCH (09:00)
--- NOTE | 2016-07-09 09:25 | PDOC ---
SUBJECTIVE Subjective Pt. feeling ok OBJECTIVE Objective BMs slowing down Vital Signs Vital Signs Date Time Temp Pulse Resp B/P Pulse Ox O2 Delivery O2 Flow Rate FiO2 07/09/16 03:00 69 07/08/16 23:25 98.5 69 18 123/60 99 Room Air 98.5 07/08/16 21:26 73 137/66 07/08/16 20:00 Room Air 07/08/16 19:49 98.5 73 18 137/66 99 Room Air 98.5 07/08/16 14:46 97.8 80 18 159/71 96 Room Air 97.8 07/08/16 13:13 89 158/62 07/08/16 13:11 89 158/62 07/08/16 11:00 OFF Unit I & O Intake and Output 07/09/16 07:00 Intake Total 520 ml Output Total 400 ml Balance 120 ml Intake Oral 520 ml Output Urine Total 150 ml Stool Total 100 ml Emesis 150 ml PHYSICAL EXAM Physical Exam no urologic complaints. 10-25 K jose glabrata on final urine C and S Recs. per ID ASSESSMENT/PLAN Assessment/Plan continue ISC TID F/U urology 3 months Problems: COMMENT Lab Laboratory Tests Test 07/08/16 11:27 07/08/16 17:03 07/08/16 20:49 07/09/16 04:56 Glucose (Fingerstick) 141mg/dL (70-99) 142mg/dL (70-99) 137mg/dL (70-99) White Blood Count 4.7x10^3/uL (4.0-11.0) Red Blood Count 4.82x10^6/uL (4.30-5.70) Hemoglobin 11.7g/dL (13.0-17.5) Hematocrit 37.1% (39.0-53.0) Mean Corpuscular Volume 77fL (79-100) Mean Corpuscular Hemoglobin 24pg (25-35) Mean Corpuscular Hemoglobin Concent 32g/dL (31-37) Red Cell Distribution Width 20.6% (11.5-14.5) Platelet Count 160x10^3/uL (140-400) Neutrophils (%) (Auto) 36% (31-73) Lymphocytes (%) (Auto) 32% (24-48) Monocytes (%) (Auto) 15% (0-9) Eosinophils (%) (Auto) 17% (0-3) Basophils (%) (Auto) 0% (0-3) Neutrophils # (Auto) 1.7x10^3uL (1.8-7.7) Lymphocytes # (Auto) 1.5x10^3/uL (1.0-4.8) Monocytes # (Auto) 0.7x10^3/uL (0.0-1.1) Eosinophils # (Auto) 0.8x10^3/uL (0.0-0.7) Basophils # (Auto) 0.0x10^3/uL (0.0-0.2) Sodium Level 142mmol/L (136-145) Potassium Level 4.7mmol/L (3.5-5.1) Chloride Level 104mmol/L (98-107) Carbon Dioxide Level 25mmol/L (21-32) Anion Gap 13 (6-14) Blood Urea Nitrogen 41mg/dL (8-26) Creatinine 9.9mg/dL (0.7-1.3) Estimated GFR (Cockcroft-Gault) 6.3 BUN/Creatinine Ratio 4 (6-20) Glucose Level 133mg/dL (70-99) Calcium Level 9.1mg/dL (8.5-10.1) Phosphorus Level 5.5mg/dL (2.6-4.7) Magnesium Level 2.0mg/dL (1.8-2.4) Total Bilirubin 0.3mg/dL (0.2-1.0) Aspartate Amino Transf (AST/SGOT) 16U/L (15-37) Alanine Aminotransferase (ALT/SGPT) 26U/L (16-63) Alkaline Phosphatase 53U/L (46-116) Total Protein 7.5g/dL (6.4-8.2) Albumin 2.9g/dL (3.4-5.0) Albumin/Globulin Ratio 0.6 (1.0-1.7) Test 07/09/16 08:08 Glucose (Fingerstick) 127mg/dL (70-99) NOLBERTO THOMPSON MD Jul 09, 2016 09:25
[2016-07-09] MEDS ORDERED: METR500T PO (09:29)
[2016-07-09] MEDS: PANTOPRAZOLE 40 MG TABLET. PO SCH (09:48)
[2016-07-09] MEDS: FOLIC/VIT B COMP W-C (RENAL) TABLET. PO SCH (09:48)
[2016-07-09] MEDS: ASPIRIN 81 MG TAB.CHEW PO SCH (09:48)
--- NOTE | 2016-07-09 09:55 | PDOC ---
Infectious Disease Note Vital Sign Vital Signs Vital Signs Date Time Temp Pulse Resp B/P Pulse Ox O2 Delivery O2 Flow Rate FiO2 07/09/16 07:00 89/42 07/09/16 07:00 98.2 71 20 96 Room Air 98.2 Labs Lab Laboratory Tests Test 07/08/16 11:27 07/08/16 17:03 07/08/16 20:49 07/09/16 04:56 Glucose (Fingerstick) 141mg/dL (70-99) 142mg/dL (70-99) 137mg/dL (70-99) White Blood Count 4.7x10^3/uL (4.0-11.0) Red Blood Count 4.82x10^6/uL (4.30-5.70) Hemoglobin 11.7g/dL (13.0-17.5) Hematocrit 37.1% (39.0-53.0) Mean Corpuscular Volume 77fL (79-100) Mean Corpuscular Hemoglobin 24pg (25-35) Mean Corpuscular Hemoglobin Concent 32g/dL (31-37) Red Cell Distribution Width 20.6% (11.5-14.5) Platelet Count 160x10^3/uL (140-400) Neutrophils (%) (Auto) 36% (31-73) Lymphocytes (%) (Auto) 32% (24-48) Monocytes (%) (Auto) 15% (0-9) Eosinophils (%) (Auto) 17% (0-3) Basophils (%) (Auto) 0% (0-3) Neutrophils # (Auto) 1.7x10^3uL (1.8-7.7) Lymphocytes # (Auto) 1.5x10^3/uL (1.0-4.8) Monocytes # (Auto) 0.7x10^3/uL (0.0-1.1) Eosinophils # (Auto) 0.8x10^3/uL (0.0-0.7) Basophils # (Auto) 0.0x10^3/uL (0.0-0.2) Sodium Level 142mmol/L (136-145) Potassium Level 4.7mmol/L (3.5-5.1) Chloride Level 104mmol/L (98-107) Carbon Dioxide Level 25mmol/L (21-32) Anion Gap 13 (6-14) Blood Urea Nitrogen 41mg/dL (8-26) Creatinine 9.9mg/dL (0.7-1.3) Estimated GFR (Cockcroft-Gault) 6.3 BUN/Creatinine Ratio 4 (6-20) Glucose Level 133mg/dL (70-99) Calcium Level 9.1mg/dL (8.5-10.1) Phosphorus Level 5.5mg/dL (2.6-4.7) Magnesium Level 2.0mg/dL (1.8-2.4) Total Bilirubin 0.3mg/dL (0.2-1.0) Aspartate Amino Transf (AST/SGOT) 16U/L (15-37) Alanine Aminotransferase (ALT/SGPT) 26U/L (16-63) Alkaline Phosphatase 53U/L (46-116) Total Protein 7.5g/dL (6.4-8.2) Albumin 2.9g/dL (3.4-5.0) Albumin/Globulin Ratio 0.6 (1.0-1.7) Test 07/09/16 08:08 Glucose (Fingerstick) 127mg/dL (70-99) Objective Assessment Cath associated UTI Syncope ESRD CVA Plan Plan of Care diflucan cut down self cath to once a day d/c flagyl d/w dr Solo and MARIANELA Ni MD Jul 09, 2016 09:55
[2016-07-09] MEDS: TAMSULOSIN 0.4 MG CAP.ER.24H. PO SCH (09:56)
[2016-07-09] MEDS: FUROSEMIDE 40 MG TABLET PO SCH (09:57)
[2016-07-09] MEDS: FINASTERIDE 5 MG TABLET PO SCH (09:57)
[2016-07-09] MEDS: DILTIAZEM HCL 240 MG CAP.ER.24H PO SCH (09:58)
[2016-07-09] MEDS: METOPROLOL TART IMMED RELEASE 25 MG TABLET PO SCH (09:59)
--- NOTE | 2016-07-09 10:29 | PDOC ---
CARDIO Progress Notes Date and Time Date of Service 07/09/2016 Time of Evaluation 1025 Subjective Subjective: No Chest Pain, No shortness of breath, No Palpitations, No Dizziness Vitals Vitals Vital Signs Date Time Temp Pulse Resp B/P Pulse Ox O2 Delivery O2 Flow Rate FiO2 07/09/16 09:59 68 127/58 07/09/16 07:00 98.2 20 96 Room Air 98.2 Weight Weight [ ] Input and Output Intake and Output Intake and Output 07/09/16 07:00 Intake Total 520 ml Output Total 400 ml Balance 120 ml Intake Oral 520 ml Output Urine Total 150 ml Stool Total 100 ml Emesis 150 ml Laboratory Labs Laboratory Tests Test 07/08/16 11:27 07/08/16 17:03 07/08/16 20:49 07/09/16 04:56 Glucose (Fingerstick) 141mg/dL (70-99) 142mg/dL (70-99) 137mg/dL (70-99) White Blood Count 4.7x10^3/uL (4.0-11.0) Red Blood Count 4.82x10^6/uL (4.30-5.70) Hemoglobin 11.7g/dL (13.0-17.5) Hematocrit 37.1% (39.0-53.0) Mean Corpuscular Volume 77fL (79-100) Mean Corpuscular Hemoglobin 24pg (25-35) Mean Corpuscular Hemoglobin Concent 32g/dL (31-37) Red Cell Distribution Width 20.6% (11.5-14.5) Platelet Count 160x10^3/uL (140-400) Neutrophils (%) (Auto) 36% (31-73) Lymphocytes (%) (Auto) 32% (24-48) Monocytes (%) (Auto) 15% (0-9) Eosinophils (%) (Auto) 17% (0-3) Basophils (%) (Auto) 0% (0-3) Neutrophils # (Auto) 1.7x10^3uL (1.8-7.7) Lymphocytes # (Auto) 1.5x10^3/uL (1.0-4.8) Monocytes # (Auto) 0.7x10^3/uL (0.0-1.1) Eosinophils # (Auto) 0.8x10^3/uL (0.0-0.7) Basophils # (Auto) 0.0x10^3/uL (0.0-0.2) Sodium Level 142mmol/L (136-145) Potassium Level 4.7mmol/L (3.5-5.1) Chloride Level 104mmol/L (98-107) Carbon Dioxide Level 25mmol/L (21-32) Anion Gap 13 (6-14) Blood Urea Nitrogen 41mg/dL (8-26) Creatinine 9.9mg/dL (0.7-1.3) Estimated GFR (Cockcroft-Gault) 6.3 BUN/Creatinine Ratio 4 (6-20) Glucose Level 133mg/dL (70-99) Calcium Level 9.1mg/dL (8.5-10.1) Phosphorus Level 5.5mg/dL (2.6-4.7) Magnesium Level 2.0mg/dL (1.8-2.4) Total Bilirubin 0.3mg/dL (0.2-1.0) Aspartate Amino Transf (AST/SGOT) 16U/L (15-37) Alanine Aminotransferase (ALT/SGPT) 26U/L (16-63) Alkaline Phosphatase 53U/L (46-116) Total Protein 7.5g/dL (6.4-8.2) Albumin 2.9g/dL (3.4-5.0) Albumin/Globulin Ratio 0.6 (1.0-1.7) Test 07/09/16 08:08 Glucose (Fingerstick) 127mg/dL (70-99) Microbiology Micro Microbiology 07/06/16 Urine Culture - Final, Complete 07/06/16 Urine Culture Result 1 (YON) - Final, Complete Physical Exam HEENT: Neck Supple W Full Motion Chest: Symmetric LUNGS: Clear to Auscultation Heart: S1S2, irregularly irregular, other (tele: atrial fib; episoded of RVR ~ 1630 yesterday) Abdomen: Soft N/T Extremities: No Edema Neurology: alert, oriented, follow commands Assessment Assessment 1. atrial fibrillation/tachydysrhythmias dual chamber PPM - Biotronik - NOT MRI COMPATIBLE PPM interrogation with increasing atrial fib burden and in atrial fib 100% of the time in the last week -- BB increased 07/07 to improve rate control [id number] = 5 now; high risk for stroke; OAC stopped 2014 after duodenal ulcer bleed and was treated by GI and has been on only ASA 81 mg since then GI consult obtained - OAC with INR around 2; continue PPI warfarin started 07/07/2016 - INR pending run of RVR yesterday afternoon - continue BB - watch rates on interrogations - BP will not currently support rate increase with ESRD - would defer using digoxin for rate control 2. subacute right parietal stroke likely due to atrial fib echo with preserved LVEF and intact intraatrial septum per Neuro 3. HTN improved control 4. ESRD with HD per nephrology 5. LDLs controlled @ 55 without statin therapy Agreeable with discharge ? PCP to manage warfarin therapy - have contacted office f/u with cardiology in one month DIAMOND CHAMBERS APRN Jul 09, 2016 10:29
[2016-07-09] MEDS ORDERED: FLUCONAZOLE 100 MG TABLET. PO SCH (10:30)
--- NOTE | 2016-07-09 10:35 | PDOC ---
Subjective: Subjective: Better today w/o diarrhea or vomiting. Objective: Objective: Significant diarrhea yesterday - dialysis stopped early. Vital Signs: Vital Signs Date Time Temp Pulse Resp B/P Pulse Ox O2 Delivery O2 Flow Rate FiO2 07/09/16 09:59 68 127/58 07/09/16 07:00 98.2 20 96 Room Air 98.2 Labs: Laboratory Tests Test 07/08/16 11:27 07/08/16 17:03 07/08/16 20:49 07/09/16 04:56 Glucose (Fingerstick) 141mg/dL 142mg/dL 137mg/dL White Blood Count 4.7x10^3/uL Red Blood Count 4.82x10^6/uL Hemoglobin 11.7g/dL Hematocrit 37.1% Mean Corpuscular Volume 77fL Mean Corpuscular Hemoglobin 24pg Mean Corpuscular Hemoglobin Concent 32g/dL Red Cell Distribution Width 20.6% Platelet Count 160x10^3/uL Neutrophils (%) (Auto) 36% Lymphocytes (%) (Auto) 32% Monocytes (%) (Auto) 15% Eosinophils (%) (Auto) 17% Basophils (%) (Auto) 0% Neutrophils # (Auto) 1.7x10^3uL Lymphocytes # (Auto) 1.5x10^3/uL Monocytes # (Auto) 0.7x10^3/uL Eosinophils # (Auto) 0.8x10^3/uL Basophils # (Auto) 0.0x10^3/uL Sodium Level 142mmol/L Potassium Level 4.7mmol/L Chloride Level 104mmol/L Carbon Dioxide Level 25mmol/L Anion Gap 13 Blood Urea Nitrogen 41mg/dL Creatinine 9.9mg/dL Estimated GFR (Cockcroft-Gault) 6.3 BUN/Creatinine Ratio 4 Glucose Level 133mg/dL Calcium Level 9.1mg/dL Phosphorus Level 5.5mg/dL Magnesium Level 2.0mg/dL Total Bilirubin 0.3mg/dL Aspartate Amino Transf (AST/SGOT) 16U/L Alanine Aminotransferase (ALT/SGPT) 26U/L Alkaline Phosphatase 53U/L Total Protein 7.5g/dL Albumin 2.9g/dL Albumin/Globulin Ratio 0.6 Test 07/09/16 08:08 Glucose (Fingerstick) 127mg/dL PE: GEN: NAD LUNGS: clear anteriorly HEART: irregularly irregular ABD: S/ND/NT NEURO/PSYCH: A & O 3 OTHER: RN and present A/P: Syncope, subacute stroke, A Fib, HTN, ESRD on HD -started on Warfarin H/o duodenal ulcer -2014, required endotherapy -now on PPI, previously on H2 [place] Vomiting, diarrhea - improved -C Diff negative -- Continue PPI. PAULINA KAT Jul 09, 2016 10:35
[2016-07-09 10:45] LABS: INR 1.2 (0.8-1.1); PROTHROMBIN TIME PATIENT 14.9 SEC (11.7-14.0)
[2016-07-09 11:00] VITALS: BP 114/61
--- NOTE | 2016-07-09 11:55 | PDOC ---
PROGRESS NOTES Assessment Problems Medical Problems: (1) Seizure Status: Acute (2) Stroke Status: Acute Possible seizure, EEG negative. In this patient with renal disease and diabetes , metabolic factors could have been at fault Subacute right parietal stroke on the CT. This finding on the CT does not explain the episode 3 days ago Note atrial fibrillation which could have caused the stroke Peripheral neuropathy Plan Agree with Coumadin Hold off on anticonvulsants Follow up with me if seizures recur Okay for discharge Subjective No complaints Objective Vital Signs Date Time Temp Pulse Resp B/P Pulse Ox O2 Delivery O2 Flow Rate FiO2 07/09/16 09:59 68 127/58 07/09/16 07:00 98.2 20 96 Room Air 98.2 Intake and Output 07/09/16 07:00 Intake Total 520 ml Output Total 400 ml Balance 120 ml Intake Oral 520 ml Output Urine Total 150 ml Stool Total 100 ml Emesis 150 ml PHYSICAL EXAM Alert. Oriented to time, place and person. PERRL. EOMI. CN: no focal findings. Muscle tone: normal. Muscle strength: 5/5 DTR: 1+ Plantar reflex: flexor Gait: not examined in bed. Sensory exam: stocking loss. No cerebellar signs elicited. Review of Relevant I have reviewed the following items vanessa (where applicable) has been applied. Labs Laboratory Tests Test 07/07/16 16:44 07/07/16 17:40 07/07/16 21:11 07/08/16 03:47 Glucose (Fingerstick) 112mg/dL (70-99) 206mg/dL (70-99) Prothrombin Time 14.0SEC (11.7-14.0) 13.8SEC (11.7-14.0) Prothromb Time International Ratio 1.2 (0.8-1.1) 1.1 (0.8-1.1) Triglycerides Level 113mg/dL (0-150) Cholesterol Level 126mg/dL (0-200) LDL Cholesterol, Calculated 55mg/dL (0-100) VLDL Cholesterol, Calculated 23mg/dL (0-40) HDL Cholesterol 48mg/dL (40-60) Cholesterol/HDL Ratio 2.6 Hepatitis B Surface Antigen Negative (Negative) Hepatitis B Surface Antibody Non reactive (.) Test 07/08/16 07:20 07/08/16 07:35 07/08/16 11:27 07/08/16 17:03 Clostridium difficile Toxin (PCR) Negative (Negative) Glucose (Fingerstick) 173mg/dL (70-99) 141mg/dL (70-99) 142mg/dL (70-99) Test 07/08/16 20:49 07/09/16 04:56 07/09/16 08:08 07/09/16 10:05 Glucose (Fingerstick) 137mg/dL (70-99) 127mg/dL (70-99) White Blood Count 4.7x10^3/uL (4.0-11.0) Red Blood Count 4.82x10^6/uL (4.30-5.70) Hemoglobin 11.7g/dL (13.0-17.5) Hematocrit 37.1% (39.0-53.0) Mean Corpuscular Volume 77fL (79-100) Mean Corpuscular Hemoglobin 24pg (25-35) Mean Corpuscular Hemoglobin Concent 32g/dL (31-37) Red Cell Distribution Width 20.6% (11.5-14.5) Platelet Count 160x10^3/uL (140-400) Neutrophils (%) (Auto) 36% (31-73) Lymphocytes (%) (Auto) 32% (24-48) Monocytes (%) (Auto) 15% (0-9) Eosinophils (%) (Auto) 17% (0-3) Basophils (%) (Auto) 0% (0-3) Neutrophils # (Auto) 1.7x10^3uL (1.8-7.7) Lymphocytes # (Auto) 1.5x10^3/uL (1.0-4.8) Monocytes # (Auto) 0.7x10^3/uL (0.0-1.1) Eosinophils # (Auto) 0.8x10^3/uL (0.0-0.7) Basophils # (Auto) 0.0x10^3/uL (0.0-0.2) Sodium Level 142mmol/L (136-145) Potassium Level 4.7mmol/L (3.5-5.1) Chloride Level 104mmol/L (98-107) Carbon Dioxide Level 25mmol/L (21-32) Anion Gap 13 (6-14) Blood Urea Nitrogen 41mg/dL (8-26) Creatinine 9.9mg/dL (0.7-1.3) Estimated GFR (Cockcroft-Gault) 6.3 BUN/Creatinine Ratio 4 (6-20) Glucose Level 133mg/dL (70-99) Calcium Level 9.1mg/dL (8.5-10.1) Phosphorus Level 5.5mg/dL (2.6-4.7) Magnesium Level 2.0mg/dL (1.8-2.4) Total Bilirubin 0.3mg/dL (0.2-1.0) Aspartate Amino Transf (AST/SGOT) 16U/L (15-37) Alanine Aminotransferase (ALT/SGPT) 26U/L (16-63) Alkaline Phosphatase 53U/L (46-116) Total Protein 7.5g/dL (6.4-8.2) Albumin 2.9g/dL (3.4-5.0) Albumin/Globulin Ratio 0.6 (1.0-1.7) Prothrombin Time 14.9SEC (11.7-14.0) Prothromb Time International Ratio 1.2 (0.8-1.1) Test 07/09/16 11:16 Glucose (Fingerstick) 151mg/dL (70-99) Laboratory Tests Test 07/08/16 17:03 07/08/16 20:49 07/09/16 04:56 07/09/16 08:08 Glucose (Fingerstick) 142mg/dL (70-99) 137mg/dL (70-99) 127mg/dL (70-99) White Blood Count 4.7x10^3/uL (4.0-11.0) Red Blood Count 4.82x10^6/uL (4.30-5.70) Hemoglobin 11.7g/dL (13.0-17.5) Hematocrit 37.1% (39.0-53.0) Mean Corpuscular Volume 77fL (79-100) Mean Corpuscular Hemoglobin 24pg (25-35) Mean Corpuscular Hemoglobin Concent 32g/dL (31-37) Red Cell Distribution Width 20.6% (11.5-14.5) Platelet Count 160x10^3/uL (140-400) Neutrophils (%) (Auto) 36% (31-73) Lymphocytes (%) (Auto) 32% (24-48) Monocytes (%) (Auto) 15% (0-9) Eosinophils (%) (Auto) 17% (0-3) Basophils (%) (Auto) 0% (0-3) Neutrophils # (Auto) 1.7x10^3uL (1.8-7.7) Lymphocytes # (Auto) 1.5x10^3/uL (1.0-4.8) Monocytes # (Auto) 0.7x10^3/uL (0.0-1.1) Eosinophils # (Auto) 0.8x10^3/uL (0.0-0.7) Basophils # (Auto) 0.0x10^3/uL (0.0-0.2) Sodium Level 142mmol/L (136-145) Potassium Level 4.7mmol/L (3.5-5.1) Chloride Level 104mmol/L (98-107) Carbon Dioxide Level 25mmol/L (21-32) Anion Gap 13 (6-14) Blood Urea Nitrogen 41mg/dL (8-26) Creatinine 9.9mg/dL (0.7-1.3) Estimated GFR (Cockcroft-Gault) 6.3 BUN/Creatinine Ratio 4 (6-20) Glucose Level 133mg/dL (70-99) Calcium Level 9.1mg/dL (8.5-10.1) Phosphorus Level 5.5mg/dL (2.6-4.7) Magnesium Level 2.0mg/dL (1.8-2.4) Total Bilirubin 0.3mg/dL (0.2-1.0) Aspartate Amino Transf (AST/SGOT) 16U/L (15-37) Alanine Aminotransferase (ALT/SGPT) 26U/L (16-63) Alkaline Phosphatase 53U/L (46-116) Total Protein 7.5g/dL (6.4-8.2) Albumin 2.9g/dL (3.4-5.0) Albumin/Globulin Ratio 0.6 (1.0-1.7) Test 07/09/16 10:05 07/09/16 11:16 Prothrombin Time 14.9SEC (11.7-14.0) Prothromb Time International Ratio 1.2 (0.8-1.1) Glucose (Fingerstick) 151mg/dL (70-99) Microbiology 07/06/16 Urine Culture - Final, Complete 07/06/16 Urine Culture Result 1 (YON) - Final, Complete Medications Current Medications Diltiazem HCl (Cardizem 24hr Cd) 240 mg DAILY PO Last administered on 09:58; Start 07/06/16 at 19:00 Metoprolol Tartrate (Lopressor) 12.5 mg 1X ONCE PO Last administered on 19:01; Start 07/06/16 at 18:45; Stop 07/06/16 at 18:48; Status DC Insulin Aspart (Novolog) 0-9 UNITS TIDACHC SQ Last administered on 07/07/16 21 :19; Start 07/07/16 at 07:30 Dextrose 12.5 gm PRN Q15MIN PRN IV SEE COMMENTS; Start 07/06/16 at 21:45 Aspirin (Children'S Aspirin) 81 mg DAILY PO Last administered on 07/09/16 09: 48; Start 07/07/16 at 09:00 Finasteride (Proscar) 10 mg DAILY PO Last administered on 07/09/16 09:57; Start 07/07/16 at 09:00 Furosemide (Lasix) 40 mg BID94 PO Last administered on 07/09/16 09:57; Start 07/07/16 at 09:00 Metoprolol Tartrate (Lopressor) 12.5 mg BID PO Last administered on 07/07/16 09:11; Start 07/06/16 at 23:00; Stop 07/07/16 at 13:18; Status DC Tamsulosin HCl (Flomax) 0.4 mg BID PO Last administered on 07/09/16 09:56; Start 07/06/16 at 23:00 Non-Formulary Medication 2 puff PRN PRN IH WHEEZING; Start 07/06/16 at 22:45; Status UNV Vitamin B Complex/ Vitamin C (Nephro-Jeanmarie) 1 tab DAILY PO Last administered on 07/09/16 09:48; Start 07/07/16 at 09:00 Insulin Detemir (Levemir) 30 units DAILY SQ ; Start 07/07/16 at 09:00 Non-Formulary Medication 2 puff PRN BID PRN INH SHORTNESS OF BREATH; Start at 22:45; Status UNV Albuterol Sulfate (Ventolin Neb Soln) 2.5 mg RTQID NEB ; Start 07/07/16 at 08:00 ; Stop 07/07/16 at 12:16; Status DC Budesonide (Pulmicort) 0.5 mg RTBID NEB ; Start 07/07/16 at 08:00; Stop at 12:16; Status DC Benzocaine (Ora-Jel) 1 antwon PRN QID PRN TP ORAL PAIN; Start 07/06/16 at 23:00; Stop 07/06/16 at 23:09; Status DC Acetaminophen (Tylenol) 650 mg PRN Q6HRS PRN PO MILD PAIN / TEMP; Start at 23:15 Benzocaine (Ora-Jel Baby) 1 antwon PRN QID PRN TP ORAL PAIN Last administered on 23:16; Start 07/06/16 at 23:09 Albuterol Sulfate (Ventolin Neb Soln) 2.5 mg PRN QID PRN NEB SHORTNESS OF BREATH; Start 07/07/16 at 12:15 Metoprolol Tartrate (Lopressor) 25 mg BID PO Last administered on 07/09/16 09: 59; Start 07/07/16 at 21:00 Pantoprazole Sodium (Protonix) 40 mg DAILYAC PO Last administered on 07/09/16 09:48; Start 07/07/16 at 15:00 Warfarin Sodium (Coumadin Per Pharmacy) 1 each PRN DAILY PRN MC SEE COMMENTS Last administered on 07/08/16 12:17; Start 07/07/16 at 17:15 Warfarin Sodium (Coumadin) 7.5 mg 1X WARF ONCE PO Last administered on 19:45; Start 07/07/16 at 19:00; Stop 07/07/16 at 19:01; Status DC Ondansetron HCl (Zofran) 4 mg PRN Q8HRS PRN IV NAUSEA/VOMITING Last administered on 07/08/16 07:49; Start 07/08/16 at 07:45 Iohexol (Omnipaque 300 Mg/ml) 75 ml 1X ONCE IV Last administered on 07/08/16 08:12; Start 07/08/16 at 08:00; Stop 07/08/16 at 08:01; Status DC Lidocaine HCl 2 ml 2 ml STK-MED ONCE .ROUTE ; Start 07/08/16 at 08:46; Stop at 08:47; Status DC Magnesium Sulfate/ Dextrose (Magnesium Sulfate PREMIX 2GM) 50 ml @ 25 mls/hr PRN DAILY PRN IV for Mag < 1.7 on am labs; Start 07/08/16 at 09:00 Metronidazole (Flagyl) 500 mg Q8HRS PO Last administered on 07/09/16 05:54; Start 07/08/16 at 11:30; Stop 07/09/16 at 09:57; Status DC Levofloxacin 500 mg 500 mg DAILY06 PO ; Start 07/08/16 at 11:30; Stop 07/08/16 at 11:32; Status DC Sodium Chloride 1,000 ml @ 1,000 mls/hr Q1H PRN IV hypotension; Start 07/08/16 at 11:27; Stop 07/08/16 at 17:26; Status DC Albumin Human (Albuminar) 200 ml @ 200 mls/hr 1X PRN PRN IV Hypotension; Start 07/08/16 at 11:30; Stop 07/08/16 at 17:29; Status DC Info (PHARMACY MONITORING -- do not chart) 1 each PRN DAILY PRN MC SEE COMMENTS ; Start 07/08/16 at 11:30 Lidocaine HCl (Xylocaine-Mpf 1% Vial) 2 ml 1X ONCE INJ Last administered on 08:54; Start 07/08/16 at 11:30; Stop 07/08/16 at 11:38; Status DC Warfarin Sodium (Coumadin) 7.5 mg 1X WARF ONCE PO Last administered on 15:59; Start 07/08/16 at 16:00; Stop 07/08/16 at 16:01; Status DC Fluconazole (Diflucan) 200 mg DAILY PO Last administered on 07/09/16 10:08; Start 07/09/16 at 10:30 Active Scripts Active Flagyl (Metronidazole) 500 Mg Tablet 500 Mg PO Q8HRS Metoprolol Tartrate 25 Mg Tablet 12.5 Mg PO BID Reported Aspirin 81 Mg Tab.chew 1 Tab PO DAILY Levemir (Insulin Detemir) 100 Unit/1 Ml Vial 30 Unit SQ DAILY Proscar (Finasteride) 5 Mg Tablet 2 Tab PO DAILY Flomax (Tamsulosin Hcl) 0.4 Mg Cap.er.24h 1 Cap PO BID [insulin w/dex] Furosemide 40 Mg Tablet 40 Mg PO BID [Symbicort] 2 Puff INH PRN BID PRN Flovent 110MCG Hfa (Fluticasone Propionate) 12 Gm Aer.w.adap 2 Puff IH PRN PRN Renal Caps Softgel (Folic Acid/Vitamin B Comp W-C) 1 Mg Capsule 1 Cap PO DAILY Vitals/I & O Vital Sign - Last 24 Hours 07/08/16 07/08/16 07/08/16 07/08/16 13:11 13:13 14:46 19:49 Temp 97.8 98.5 97.8 98.5 Pulse 89 89 80 73 Resp 18 18 B/P 158/62 158/62 159/71 137/66 Pulse Ox 96 99 O2 Delivery Room Air Room Air 07/08/16 07/08/16 07/08/16 07/09/16 20:00 21:26 23:25 03:00 Temp 98.5 98.5 Pulse 73 69 69 Resp 18 B/P 137/66 123/60 Pulse Ox 99 O2 Delivery Room Air Room Air 07/09/16 07/09/16 07/09/16 07/09/16 07:00 07:00 09:58 09:59 Temp 98.2 98.2 Pulse 71 68 68 Resp 20 B/P 105/58 89/42 127/58 127/58 Pulse Ox 96 O2 Delivery Room Air Intake and Output 07/08/16 07/08/16 07/09/16 15:00 23:00 07:00 Intake Total 400 ml 120 ml 0 ml Output Total 200 ml 50 ml 150 ml Balance 200 ml 70 ml -150 ml JOSEPH HILLMAN MD Jul 09, 2016 11:55
--- NOTE | 2016-07-09 14:05 | PDOC ---
PROGRESS NOTES Chief Complaint Chief Complaint new diarrhea syncope, MS change TIA, DM2 obesity Possible seizure Subacute right parietal stroke on the CT Peripheral neuropathy History of Present Illness History of Present Illness diarrhea resolved plan DC home discussed with ID Vitals Vitals Vital Signs Date Time Temp Pulse Resp B/P Pulse Ox O2 Delivery O2 Flow Rate FiO2 07/09/16 11:00 98.4 69 20 114/61 99 Room Air 98.4 Physical Exam General: Alert, Oriented X3, Cooperative, mild distress Heart: Regular rate, Normal S1, Normal S2, No murmurs, Other (PPM left pectoral region well healed) Lungs: Clear Abdomen: Normal bowel sounds, Soft Extremities: No edema, Normal pulses Skin: No rashes Labs LABS Laboratory Tests Test 07/08/16 17:03 07/08/16 20:49 07/09/16 04:56 07/09/16 08:08 Glucose (Fingerstick) 142mg/dL (70-99) 137mg/dL (70-99) 127mg/dL (70-99) White Blood Count 4.7x10^3/uL (4.0-11.0) Red Blood Count 4.82x10^6/uL (4.30-5.70) Hemoglobin 11.7g/dL (13.0-17.5) Hematocrit 37.1% (39.0-53.0) Mean Corpuscular Volume 77fL (79-100) Mean Corpuscular Hemoglobin 24pg (25-35) Mean Corpuscular Hemoglobin Concent 32g/dL (31-37) Red Cell Distribution Width 20.6% (11.5-14.5) Platelet Count 160x10^3/uL (140-400) Neutrophils (%) (Auto) 36% (31-73) Lymphocytes (%) (Auto) 32% (24-48) Monocytes (%) (Auto) 15% (0-9) Eosinophils (%) (Auto) 17% (0-3) Basophils (%) (Auto) 0% (0-3) Neutrophils # (Auto) 1.7x10^3uL (1.8-7.7) Lymphocytes # (Auto) 1.5x10^3/uL (1.0-4.8) Monocytes # (Auto) 0.7x10^3/uL (0.0-1.1) Eosinophils # (Auto) 0.8x10^3/uL (0.0-0.7) Basophils # (Auto) 0.0x10^3/uL (0.0-0.2) Sodium Level 142mmol/L (136-145) Potassium Level 4.7mmol/L (3.5-5.1) Chloride Level 104mmol/L (98-107) Carbon Dioxide Level 25mmol/L (21-32) Anion Gap 13 (6-14) Blood Urea Nitrogen 41mg/dL (8-26) Creatinine 9.9mg/dL (0.7-1.3) Estimated GFR (Cockcroft-Gault) 6.3 BUN/Creatinine Ratio 4 (6-20) Glucose Level 133mg/dL (70-99) Calcium Level 9.1mg/dL (8.5-10.1) Phosphorus Level 5.5mg/dL (2.6-4.7) Magnesium Level 2.0mg/dL (1.8-2.4) Total Bilirubin 0.3mg/dL (0.2-1.0) Aspartate Amino Transf (AST/SGOT) 16U/L (15-37) Alanine Aminotransferase (ALT/SGPT) 26U/L (16-63) Alkaline Phosphatase 53U/L (46-116) Total Protein 7.5g/dL (6.4-8.2) Albumin 2.9g/dL (3.4-5.0) Albumin/Globulin Ratio 0.6 (1.0-1.7) Test 07/09/16 10:05 07/09/16 11:16 Prothrombin Time 14.9SEC (11.7-14.0) Prothromb Time International Ratio 1.2 (0.8-1.1) Glucose (Fingerstick) 151mg/dL (70-99) Assessment and Plan Assessmemt and Plan Problems Medical Problems: (1) Seizure Status: Acute (2) Stroke Status: Acute Problems: Comment Review of Relevant I have reviewed the following items vanesas (where applicable) has been applied. Labs Laboratory Tests Test 07/07/16 16:44 07/07/16 17:40 07/07/16 21:11 07/08/16 03:47 Glucose (Fingerstick) 112mg/dL (70-99) 206mg/dL (70-99) Prothrombin Time 14.0SEC (11.7-14.0) 13.8SEC (11.7-14.0) Prothromb Time International Ratio 1.2 (0.8-1.1) 1.1 (0.8-1.1) Triglycerides Level 113mg/dL (0-150) Cholesterol Level 126mg/dL (0-200) LDL Cholesterol, Calculated 55mg/dL (0-100) VLDL Cholesterol, Calculated 23mg/dL (0-40) HDL Cholesterol 48mg/dL (40-60) Cholesterol/HDL Ratio 2.6 Hepatitis B Surface Antigen Negative (Negative) Hepatitis B Surface Antibody Non reactive (.) Test 07/08/16 07:20 07/08/16 07:35 07/08/16 11:27 07/08/16 17:03 Clostridium difficile Toxin (PCR) Negative (Negative) Glucose (Fingerstick) 173mg/dL (70-99) 141mg/dL (70-99) 142mg/dL (70-99) Test 07/08/16 20:49 07/09/16 04:56 07/09/16 08:08 07/09/16 10:05 Glucose (Fingerstick) 137mg/dL (70-99) 127mg/dL (70-99) White Blood Count 4.7x10^3/uL (4.0-11.0) Red Blood Count 4.82x10^6/uL (4.30-5.70) Hemoglobin 11.7g/dL (13.0-17.5) Hematocrit 37.1% (39.0-53.0) Mean Corpuscular Volume 77fL (79-100) Mean Corpuscular Hemoglobin 24pg (25-35) Mean Corpuscular Hemoglobin Concent 32g/dL (31-37) Red Cell Distribution Width 20.6% (11.5-14.5) Platelet Count 160x10^3/uL (140-400) Neutrophils (%) (Auto) 36% (31-73) Lymphocytes (%) (Auto) 32% (24-48) Monocytes (%) (Auto) 15% (0-9) Eosinophils (%) (Auto) 17% (0-3) Basophils (%) (Auto) 0% (0-3) Neutrophils # (Auto) 1.7x10^3uL (1.8-7.7) Lymphocytes # (Auto) 1.5x10^3/uL (1.0-4.8) Monocytes # (Auto) 0.7x10^3/uL (0.0-1.1) Eosinophils # (Auto) 0.8x10^3/uL (0.0-0.7) Basophils # (Auto) 0.0x10^3/uL (0.0-0.2) Sodium Level 142mmol/L (136-145) Potassium Level 4.7mmol/L (3.5-5.1) Chloride Level 104mmol/L (98-107) Carbon Dioxide Level 25mmol/L (21-32) Anion Gap 13 (6-14) Blood Urea Nitrogen 41mg/dL (8-26) Creatinine 9.9mg/dL (0.7-1.3) Estimated GFR (Cockcroft-Gault) 6.3 BUN/Creatinine Ratio 4 (6-20) Glucose Level 133mg/dL (70-99) Calcium Level 9.1mg/dL (8.5-10.1) Phosphorus Level 5.5mg/dL (2.6-4.7) Magnesium Level 2.0mg/dL (1.8-2.4) Total Bilirubin 0.3mg/dL (0.2-1.0) Aspartate Amino Transf (AST/SGOT) 16U/L (15-37) Alanine Aminotransferase (ALT/SGPT) 26U/L (16-63) Alkaline Phosphatase 53U/L (46-116) Total Protein 7.5g/dL (6.4-8.2) Albumin 2.9g/dL (3.4-5.0) Albumin/Globulin Ratio 0.6 (1.0-1.7) Prothrombin Time 14.9SEC (11.7-14.0) Prothromb Time International Ratio 1.2 (0.8-1.1) Test 07/09/16 11:16 Glucose (Fingerstick) 151mg/dL (70-99) Laboratory Tests Test 07/08/16 17:03 07/08/16 20:49 07/09/16 04:56 07/09/16 08:08 Glucose (Fingerstick) 142mg/dL (70-99) 137mg/dL (70-99) 127mg/dL (70-99) White Blood Count 4.7x10^3/uL (4.0-11.0) Red Blood Count 4.82x10^6/uL (4.30-5.70) Hemoglobin 11.7g/dL (13.0-17.5) Hematocrit 37.1% (39.0-53.0) Mean Corpuscular Volume 77fL (79-100) Mean Corpuscular Hemoglobin 24pg (25-35) Mean Corpuscular Hemoglobin Concent 32g/dL (31-37) Red Cell Distribution Width 20.6% (11.5-14.5) Platelet Count 160x10^3/uL (140-400) Neutrophils (%) (Auto) 36% (31-73) Lymphocytes (%) (Auto) 32% (24-48) Monocytes (%) (Auto) 15% (0-9) Eosinophils (%) (Auto) 17% (0-3) Basophils (%) (Auto) 0% (0-3) Neutrophils # (Auto) 1.7x10^3uL (1.8-7.7) Lymphocytes # (Auto) 1.5x10^3/uL (1.0-4.8) Monocytes # (Auto) 0.7x10^3/uL (0.0-1.1) Eosinophils # (Auto) 0.8x10^3/uL (0.0-0.7) Basophils # (Auto) 0.0x10^3/uL (0.0-0.2) Sodium Level 142mmol/L (136-145) Potassium Level 4.7mmol/L (3.5-5.1) Chloride Level 104mmol/L (98-107) Carbon Dioxide Level 25mmol/L (21-32) Anion Gap 13 (6-14) Blood Urea Nitrogen 41mg/dL (8-26) Creatinine 9.9mg/dL (0.7-1.3) Estimated GFR (Cockcroft-Gault) 6.3 BUN/Creatinine Ratio 4 (6-20) Glucose Level 133mg/dL (70-99) Calcium Level 9.1mg/dL (8.5-10.1) Phosphorus Level 5.5mg/dL (2.6-4.7) Magnesium Level 2.0mg/dL (1.8-2.4) Total Bilirubin 0.3mg/dL (0.2-1.0) Aspartate Amino Transf (AST/SGOT) 16U/L (15-37) Alanine Aminotransferase (ALT/SGPT) 26U/L (16-63) Alkaline Phosphatase 53U/L (46-116) Total Protein 7.5g/dL (6.4-8.2) Albumin 2.9g/dL (3.4-5.0) Albumin/Globulin Ratio 0.6 (1.0-1.7) Test 07/09/16 10:05 07/09/16 11:16 Prothrombin Time 14.9SEC (11.7-14.0) Prothromb Time International Ratio 1.2 (0.8-1.1) Glucose (Fingerstick) 151mg/dL (70-99) Microbiology 07/06/16 Urine Culture - Final, Complete 07/06/16 Urine Culture Result 1 (YON) - Final, Complete Medications Current Medications Diltiazem HCl (Cardizem 24hr Cd) 240 mg DAILY PO Last administered on 09:58; Start 07/06/16 at 19:00 Metoprolol Tartrate (Lopressor) 12.5 mg 1X ONCE PO Last administered on 19:01; Start 07/06/16 at 18:45; Stop 07/06/16 at 18:48; Status DC Insulin Aspart (Novolog) 0-9 UNITS TIDACHC SQ Last administered on 07/09/16 12 :54; Start 07/07/16 at 07:30 Dextrose 12.5 gm PRN Q15MIN PRN IV SEE COMMENTS; Start 07/06/16 at 21:45 Aspirin (Children'S Aspirin) 81 mg DAILY PO Last administered on 07/09/16 09: 48; Start 07/07/16 at 09:00 Finasteride (Proscar) 10 mg DAILY PO Last administered on 07/09/16 09:57; Start 07/07/16 at 09:00 Furosemide (Lasix) 40 mg [id number] PO Last administered on 07/09/16 09:57; Start 07/07/16 at 09:00 Metoprolol Tartrate (Lopressor) 12.5 mg BID PO Last administered on 07/07/16 09:11; Start 07/06/16 at 23:00; Stop 07/07/16 at 13:18; Status DC Tamsulosin HCl (Flomax) 0.4 mg BID PO Last administered on 07/09/16 09:56; Start 07/06/16 at 23:00 Non-Formulary Medication 2 puff PRN PRN IH WHEEZING; Start 07/06/16 at 22:45; Status UNV Vitamin B Complex/ Vitamin C (Nephro-Jeanmarie) 1 tab DAILY PO Last administered on 07/09/16 09:48; Start 07/07/16 at 09:00 Insulin Detemir (Levemir) 30 units DAILY SQ ; Start 07/07/16 at 09:00 Non-Formulary Medication 2 puff PRN BID PRN INH SHORTNESS OF BREATH; Start at 22:45; Status UNV Albuterol Sulfate (Ventolin Neb Soln) 2.5 mg RTQID NEB ; Start 07/07/16 at 08:00 ; Stop 07/07/16 at 12:16; Status DC Budesonide (Pulmicort) 0.5 mg RTBID NEB ; Start 07/07/16 at 08:00; Stop at 12:16; Status DC Benzocaine (Ora-Jel) 1 antwon PRN QID PRN TP ORAL PAIN; Start 07/06/16 at 23:00; Stop 07/06/16 at 23:09; Status DC Acetaminophen (Tylenol) 650 mg PRN Q6HRS PRN PO MILD PAIN / TEMP; Start at 23:15 Benzocaine (Ora-Jel Baby) 1 antwon PRN QID PRN TP ORAL PAIN Last administered on 23:16; Start 07/06/16 at 23:09 Albuterol Sulfate (Ventolin Neb Soln) 2.5 mg PRN QID PRN NEB SHORTNESS OF BREATH; Start 07/07/16 at 12:15 Metoprolol Tartrate (Lopressor) 25 mg BID PO Last administered on 07/09/16 09: 59; Start 07/07/16 at 21:00 Pantoprazole Sodium (Protonix) 40 mg DAILYAC PO Last administered on 07/09/16 09:48; Start 07/07/16 at 15:00 Warfarin Sodium (Coumadin Per Pharmacy) 1 each PRN DAILY PRN MC SEE COMMENTS Last administered on 07/08/16 12:17; Start 07/07/16 at 17:15 Warfarin Sodium (Coumadin) 7.5 mg 1X WARF ONCE PO Last administered on 19:45; Start 07/07/16 at 19:00; Stop 07/07/16 at 19:01; Status DC Ondansetron HCl (Zofran) 4 mg PRN Q8HRS PRN IV NAUSEA/VOMITING Last administered on 07/08/16 07:49; Start 07/08/16 at 07:45 Iohexol (Omnipaque 300 Mg/ml) 75 ml 1X ONCE IV Last administered on 07/08/16 08:12; Start 07/08/16 at 08:00; Stop 07/08/16 at 08:01; Status DC Lidocaine HCl 2 ml 2 ml STK-MED ONCE .ROUTE ; Start 07/08/16 at 08:46; Stop at 08:47; Status DC Magnesium Sulfate/ Dextrose (Magnesium Sulfate PREMIX 2GM) 50 ml @ 25 mls/hr PRN DAILY PRN IV for Mag < 1.7 on am labs; Start 07/08/16 at 09:00 Metronidazole (Flagyl) 500 mg Q8HRS PO Last administered on 07/09/16 05:54; Start 07/08/16 at 11:30; Stop 07/09/16 at 09:57; Status DC Levofloxacin 500 mg 500 mg DAILY06 PO ; Start 07/08/16 at 11:30; Stop 07/08/16 at 11:32; Status DC Sodium Chloride 1,000 ml @ 1,000 mls/hr Q1H PRN IV hypotension; Start 07/08/16 at 11:27; Stop 07/08/16 at 17:26; Status DC Albumin Human (Albuminar) 200 ml @ 200 mls/hr 1X PRN PRN IV Hypotension; Start 07/08/16 at 11:30; Stop 07/08/16 at 17:29; Status DC Info (PHARMACY MONITORING -- do not chart) 1 each PRN DAILY PRN MC SEE COMMENTS ; Start 07/08/16 at 11:30 Lidocaine HCl (Xylocaine-Mpf 1% Vial) 2 ml 1X ONCE INJ Last administered on 08:54; Start 07/08/16 at 11:30; Stop 07/08/16 at 11:38; Status DC Warfarin Sodium (Coumadin) 7.5 mg 1X WARF ONCE PO Last administered on 15:59; Start 07/08/16 at 16:00; Stop 07/08/16 at 16:01; Status DC Fluconazole (Diflucan) 200 mg DAILY PO Last administered on 07/09/16 10:08; Start 07/09/16 at 10:30 Warfarin Sodium (Coumadin) 8 mg 1X WARF ONCE PO ; Start 07/09/16 at 16:00; Stop 07/09/16 at 16:01 Active Scripts Active Flagyl (Metronidazole) 500 Mg Tablet 500 Mg PO Q8HRS Metoprolol Tartrate 25 Mg Tablet 12.5 Mg PO BID Reported Aspirin 81 Mg Tab.chew 1 Tab PO DAILY Levemir (Insulin Detemir) 100 Unit/1 Ml Vial 30 Unit SQ DAILY Proscar (Finasteride) 5 Mg Tablet 2 Tab PO DAILY Flomax (Tamsulosin Hcl) 0.4 Mg Cap.er.24h 1 Cap PO BID [insulin w/dex] Furosemide 40 Mg Tablet 40 Mg PO BID [Symbicort] 2 Puff INH PRN BID PRN Flovent 110MCG Hfa (Fluticasone Propionate) 12 Gm Aer.w.adap 2 Puff IH PRN PRN Renal Caps Softgel (Folic Acid/Vitamin B Comp W-C) 1 Mg Capsule 1 Cap PO DAILY Vitals/I & O Vital Sign - Last 24 Hours 07/08/16 07/08/16 07/08/16 07/08/16 14:46 19:49 20:00 21:26 Temp 97.8 98.5 97.8 98.5 Pulse 80 73 73 Resp 18 18 B/P 159/71 137/66 137/66 Pulse Ox 96 99 O2 Delivery Room Air Room Air Room Air 07/08/16 07/09/16 07/09/16 07/09/16 23:25 03:00 07:00 07:00 Temp 98.5 98.2 98.5 98.2 Pulse 69 69 71 Resp 18 20 B/P 123/60 105/58 89/42 Pulse Ox 99 96 O2 Delivery Room Air Room Air 07/09/16 07/09/16 07/09/16 07/09/16 08:00 09:58 09:59 11:00 Temp 98.4 98.4 Pulse 68 68 69 Resp 20 B/P 127/58 127/58 114/61 Pulse Ox 99 O2 Delivery Room Air Room Air Intake and Output 07/08/16 07/08/16 07/09/16 15:00 23:00 07:00 Intake Total 400 ml 120 ml 0 ml Output Total 200 ml 50 ml 150 ml Balance 200 ml 70 ml -150 ml PRISCA SANCHEZ MD Jul 09, 2016 14:04
--- NOTE | 2016-07-09 14:21 | PDOC ---
SUBJECTIVE ROS ESRD had 1 episode of diarrhea, CVS: no Orthopnea, no CP RESP: no SOB, no RAMIREZ GI: no Nausea, no Vomiting : no Dysuria, no Urgency OBJECTIVE Vital Signs Vital Signs Date Time Temp Pulse Resp B/P Pulse Ox O2 Delivery O2 Flow Rate FiO2 07/09/16 11:00 98.4 69 20 114/61 99 Room Air 98.4 I & 0 Intake and Output 07/09/16 07:00 Intake Total 520 ml Output Total 400 ml Balance 120 ml Intake Oral 520 ml Output Urine Total 150 ml Stool Total 100 ml Emesis 150 ml PHYSICAL EXAM Physical Exam General Appearance: Awake Alert Oriented x 3 In no Distress Eyes: VIsion Unchanged Conjunctiva Normal EN: No EN Drainage Mucous Memb. moist Neck: no JVD no JVP Supple no Thyromegaly CVS: S1 S2 soft Murmur No Gallop No Rub no Edema Resp: no Rales no Rhonchi no Acc. Muscle use GI: BAS +ve NO Bruit Non Tender Non Distended : no CVA tenderness; no Suprapubic Tenderness Assessment & Plan ESRD: Current FLuid and E-lyte status does not necessitate emergent need for Dialysis. Will re-evaluate for Dialysis in am and continue on TTSat schedule. Microcytic Anemia: Epogen will be ordered if hgb < 11. Transfuse with next HD as needed. HTN: Malignant OA; now better controlled. Current BP meds reviewed. See orders for changes. Bone & Mineral: follow phos and alter binder regimen as needed Diarrhea - C. Diff is -ve so Have instructed pt to use Imodium prior to OP HD Discussed Plan of Care and prognosis etc. at length with family () COMMENT/RELEVANT DATA Meds Current Medications Medications (Trade) Dose Ordered Sig/[place] Start Time Stop Time Status Last Admin Dose Admin Acetaminophen (Tylenol) 650 mg PRN Q6HRS PRN 07/06/16 23:15 Albumin Human (Albuminar) 200 ml @ 200 mls/hr 1X PRN PRN 07/08/16 11:30 07/08/16 17:29 DC Albuterol Sulfate (Ventolin Neb Soln) 2.5 mg PRN QID PRN 07/07/16 12:15 Aspirin (Children'S Aspirin) 81 mg DAILY 07/07/16 09:00 07/09/16 09:48 81 MG Benzocaine (Ora-Jel Baby) 1 antwon PRN QID PRN 07/06/16 23:09 07/06/16 23:16 1 ANTWON Benzocaine (Ora-Jel) 1 antwon PRN QID PRN 07/06/16 23:00 07/06/16 23:09 DC Budesonide (Pulmicort) 0.5 mg RTBID 07/07/16 08:00 07/07/16 12:16 DC Dextrose 12.5 gm PRN Q15MIN PRN 07/06/16 21:45 Diltiazem HCl (Cardizem 24hr Cd) 240 mg DAILY 07/06/16 19:00 07/09/16 09:58 240 MG Finasteride (Proscar) 10 mg DAILY 07/07/16 09:00 07/09/16 09:57 10 MG Fluconazole (Diflucan) 200 mg DAILY 07/09/16 10:30 07/09/16 10:08 200 MG Furosemide (Lasix) 40 mg BID94 07/07/16 09:00 07/09/16 09:57 40 MG Info (PHARMACY MONITORING -- do not chart) 1 each PRN DAILY PRN 07/08/16 11:30 Insulin Aspart (Novolog) 0-9 UNITS TIDACHC 07/07/16 07:30 07/09/16 12:54 4 UNITS Insulin Detemir (Levemir) 30 units DAILY 07/07/16 09:00 Iohexol (Omnipaque 300 Mg/ml) 75 ml 1X ONCE 07/08/16 08:00 07/08/16 08:01 DC 07/08/16 08:12 75 ML Levofloxacin 500 mg 500 mg DAILY06 07/08/16 11:30 07/08/16 11:32 DC Lidocaine HCl (Xylocaine-Mpf 1% Vial) 2 ml 1X ONCE 07/08/16 11:30 07/08/16 11:38 DC 07/08/16 08:54 2 ML Lidocaine HCl 2 ml 2 ml STK-MED ONCE 07/08/16 08:46 07/08/16 08:47 DC Magnesium Sulfate/ Dextrose (Magnesium Sulfate PREMIX 2GM) 50 ml @ 25 mls/hr PRN DAILY PRN 07/08/16 09:00 Metoprolol Tartrate (Lopressor) 25 mg BID 07/07/16 21:00 07/09/16 09:59 25 MG Metronidazole (Flagyl) 500 mg Q8HRS 07/08/16 11:30 07/09/16 09:57 DC 07/09/16 05:54 500 MG Non-Formulary Medication 2 puff PRN BID PRN 07/06/16 22:45 UNV Ondansetron HCl (Zofran) 4 mg PRN Q8HRS PRN 07/08/16 07:45 07/08/16 07:49 4 MG Pantoprazole Sodium (Protonix) 40 mg DAILYAC 07/07/16 15:00 07/09/16 09:48 40 MG Sodium Chloride 1,000 ml @ 1,000 mls/hr Q1H PRN 07/08/16 11:27 07/08/16 17:26 DC Tamsulosin HCl (Flomax) 0.4 mg BID 07/06/16 23:00 07/09/16 09:56 0.4 MG Vitamin B Complex/ Vitamin C (Nephro-Jeanmarie) 1 tab DAILY 07/07/16 09:00 07/09/16 09:48 1 TAB Warfarin Sodium (Coumadin Per Pharmacy) 1 each PRN DAILY PRN 07/07/16 17:15 07/09/16 14:06 1 EACH Warfarin Sodium (Coumadin) 8 mg 1X WARF ONCE 07/09/16 16:00 07/09/16 16:01 Lab Laboratory Tests Test 07/08/16 17:03 07/08/16 20:49 07/09/16 04:56 07/09/16 08:08 Glucose (Fingerstick) 142mg/dL (70-99) 137mg/dL (70-99) 127mg/dL (70-99) White Blood Count 4.7x10^3/uL (4.0-11.0) Red Blood Count 4.82x10^6/uL (4.30-5.70) Hemoglobin 11.7g/dL (13.0-17.5) Hematocrit 37.1% (39.0-53.0) Mean Corpuscular Volume 77fL (79-100) Mean Corpuscular Hemoglobin 24pg (25-35) Mean Corpuscular Hemoglobin Concent 32g/dL (31-37) Red Cell Distribution Width 20.6% (11.5-14.5) Platelet Count 160x10^3/uL (140-400) Neutrophils (%) (Auto) 36% (31-73) Lymphocytes (%) (Auto) 32% (24-48) Monocytes (%) (Auto) 15% (0-9) Eosinophils (%) (Auto) 17% (0-3) Basophils (%) (Auto) 0% (0-3) Neutrophils # (Auto) 1.7x10^3uL (1.8-7.7) Lymphocytes # (Auto) 1.5x10^3/uL (1.0-4.8) Monocytes # (Auto) 0.7x10^3/uL (0.0-1.1) Eosinophils # (Auto) 0.8x10^3/uL (0.0-0.7) Basophils # (Auto) 0.0x10^3/uL (0.0-0.2) Sodium Level 142mmol/L (136-145) Potassium Level 4.7mmol/L (3.5-5.1) Chloride Level 104mmol/L (98-107) Carbon Dioxide Level 25mmol/L (21-32) Anion Gap 13 (6-14) Blood Urea Nitrogen 41mg/dL (8-26) Creatinine 9.9mg/dL (0.7-1.3) Estimated GFR (Cockcroft-Gault) 6.3 BUN/Creatinine Ratio 4 (6-20) Glucose Level 133mg/dL (70-99) Calcium Level 9.1mg/dL (8.5-10.1) Phosphorus Level 5.5mg/dL (2.6-4.7) Magnesium Level 2.0mg/dL (1.8-2.4) Total Bilirubin 0.3mg/dL (0.2-1.0) Aspartate Amino Transf (AST/SGOT) 16U/L (15-37) Alanine Aminotransferase (ALT/SGPT) 26U/L (16-63) Alkaline Phosphatase 53U/L (46-116) Total Protein 7.5g/dL (6.4-8.2) Albumin 2.9g/dL (3.4-5.0) Albumin/Globulin Ratio 0.6 (1.0-1.7) Test 07/09/16 10:05 07/09/16 11:16 Prothrombin Time 14.9SEC (11.7-14.0) Prothromb Time International Ratio 1.2 (0.8-1.1) Glucose (Fingerstick) 151mg/dL (70-99) ELLIOTT NELSON MD Jul 09, 2016 14:21
[2016-07-09] MEDS ORDERED: WARFARIN 4 MG TABLET. PO ONE (16:00)
--- NOTE | 2016-07-09 23:37 | CONS ---
DATE OF CONSULTATION: 07/09/2016 REQUESTING PHYSICIAN: Dr. Solo. REASON FOR CONSULTATION: Fungal UTI. HISTORY OF PRESENT ILLNESS: This is a 75-year-old gentleman who came in because of a syncopal episode. The patient was found to have a stroke. The patient also does self-cath 4 times a day and gets about 50-55 mL of urine a day. The patient has abnormal urinalysis and culture is showing Ivett glabrata. The patient also has had diarrhea, which has improved now. C. diff is negative. The patient is feeling much better. He is almost ready to go home. Denies any nausea, vomiting, diarrhea. Denies any chest pain, shortness of breath, abdominal pain. PAST MEDICAL HISTORY: 1. Positive for end-stage renal disease, on hemodialysis. 2. Urinary retention with self-cath. 3. Coronary artery disease. 4. Atrial fibrillation. He has a pacemaker in place. 5. Diabetes. 6. Hypertension. SOCIAL HISTORY: Negative for smoking, alcohol, or illicit drug use. ALLERGIES: LISTED ALLERGIC TO METFORMIN AND SITAGLIPTIN. CURRENT MEDICATIONS: Reviewed. The patient is on Flagyl. REVIEW OF SYSTEMS: As per HPI, all other systems reviewed are negative. PHYSICAL EXAMINATION: GENERAL: Alert, oriented gentleman, not in distress. VITAL SIGNS: Stable, afebrile. HEENT: NAD. NECK: Supple, no JVP, no lymphadenopathy. LUNGS: Clear. HEART: S1, S2 regular. ABDOMEN: Benign. EXTREMITIES: No edema, cyanosis. SKIN: Unremarkable. NEUROLOGIC: The patient is neurologically intact. LABORATORY DATA: White count is normal. BUN 41, creatinine 9.9. Urinalysis showed too numerous to count wbc's. Leukocyte esterase is large. C. diff is negative. Culture is showing Ivett glabrata. IMPRESSION: 1. Catheter associated fungal urinary tract infection. 2. Syncopal episode. 3. Cerebrovascular accident. 4. End-stage renal disease. 5. Diabetes. 6. Hypertension. RECOMMENDATIONS: The patient gets only 50 mL of urine or so. He should cut down the self-cath to once a day, rather than 4 times a day. Did discuss that with him and the . He also is going to follow up with Dr. Solo to see if urinary retention can be alleviated. I would use Diflucan, high dose, for 3 days. Discontinue Flagyl. Supportive care, and the patient can be discharged with plan from the Infectious Disease standpoint of view. Thank you very much, Dr. Solo and Dr. Fall for giving me the opportunity to participate in this patient's care. MRAIANELA NELSON MD DR: ABIOLA/aliyah JOB#: [id number] / [id number]
== END 2016-07-09 15:00 | disposition home or self-care (01) | DRG 64 ==
LOC: ER 14:59 → 5 NORTH 19:16
PROVIDERS: ADMIT Internal Medicine Hematology & Oncology; ATTEND Internal Medicine Hematology & Oncology
PROC: 5A1D00Z (ICD-10-PCS; principal; 2016-07-08)
DX: I63.9 Cerebral infarction, unspecified (principal); N18.6 End stage renal disease; R65.11 Systemic inflammatory response syndrome (SIRS) of non-infectious origin with acute organ dysfunction; N39.0 Urinary tract infection, site not specified; I13.11 Hypertensive heart and chronic kidney disease without heart failure, with stage 5 chronic kidney disease, or end stage renal disease; T83.518A Infection and inflammatory reaction due to other urinary catheter, initial encounter; B49 Unspecified mycosis; E11.22 Type 2 diabetes mellitus with diabetic chronic kidney disease; E66.9 Obesity, unspecified; E78.5 Hyperlipidemia, unspecified; I25.10 Atherosclerotic heart disease of native coronary artery without angina pectoris; I44.1 Atrioventricular block, second degree; I48.91 Unspecified atrial fibrillation; M19.90 Unspecified osteoarthritis, unspecified site; D64.9 Anemia, unspecified; F32.9 Major depressive disorder, single episode, unspecified; F41.9 Anxiety disorder, unspecified; E11.42 Type 2 diabetes mellitus with diabetic polyneuropathy; I51.7 Cardiomegaly; J45.909 Unspecified asthma, uncomplicated; K21.9 Gastro-esophageal reflux disease without esophagitis; N40.1 Benign prostatic hyperplasia with lower urinary tract symptoms; Y84.6 Urinary catheterization as the cause of abnormal reaction of the patient, or of later complication, without mention of misadventure at the time of the procedure; Z79.4 Long term (current) use of insulin; Z79.82 Long term (current) use of aspirin; Z82.49 Family history of ischemic heart disease and other diseases of the circulatory system; Z83.3 Family history of diabetes mellitus; Z86.73 Personal history of transient ischemic attack (TIA), and cerebral infarction without residual deficits; Z95.0 Presence of cardiac pacemaker; Z99.2 Dependence on renal dialysis; Z87.11 Personal history of peptic ulcer disease; Z88.8 Allergy status to other drugs, medicaments and biological substances; Z68.31 Body mass index [BMI] 31.0-31.9, adult
CPT/HCPCS: 51701; 99285; C8929; 36415; 70450; 70470; 71010; 80048; 80053; 80061; 81001; 82947; 83735; 84100; 84484; 85007; 85027; 85610; 86706; 87086; 87186; 87324; 87340; 87341; 93005; 93880; 94250; 94760; 95816; J1815; J2405; Q9967; 92610

== ENCOUNTER → 2017-02-13 | Outpatient (CLI) | payer OTHER ==
[2017-01-26 10:56] VITALS: BP 141/67
[~2017-02-13] MED LIST changes: +ALPR0.254 PO; +ASPI-630 PO; +DILT120C80 PO; -DILT120C97 PO; +DILT240C2 PO; +FINA5TAB PO; +FOLI0.8T32 PO; -GUAI600T38 PO; +GUAI600T47 PO; +METR500T PO; +PANT40TA5 PO; +POLY17PO29 PO; -POTA10CA PO; +POTA20TA4 PO; +POTASSIUM CHLO10 MEQ PO; +REGADENOSON 0.4 MG/5 ML DISP.SYRIN. IV ONE; +TAMS0.4C97 PO; +TRAM50TA PO; +WARF2TAB7 PO; +WARF5TAB7 PO
--- NOTE | 2017-02-13 12:55 | RAD ---
APPROVED REPORT Test Type: Pharmacological Stress Nurse/Tech: Donna Amezquita R.N. Test Indications: Elevated troponin Cardiac History: HTN, PPM Medications: SEE EMR Medical History: DM, CVA Resting ECG: PPM with underlying AFib Resting Heart Rate: 74 bpm Resting Blood Pressure: 128/58mmHg Pretest Chest Pain: No chest painNo chest pain Nurse/Tech Notes S1S2, lung sounds diminished throughout, denied chest pain or SOA. Denied dizziness. Consent: The procedure was explained to the patient in lay terms. Informed consent was witnessed. Dada eout was entered into [employer]. History and Stress Test performed by Donna Amezquita R.N. Pharm. Details Pharmacologic stress testing was performed using 0.4mg per 5ml of regadenoson given intravenously ove r 7-10 seconds. Stress Symptoms SOA. POST EXERCISE Reason for Termination: Infusion complete Max HR: 112 bpm Max Blood Pressure: 131/48mmHg Blood Pressure response to exercise: Normal blood pressure response during stress. Heart Rate response to exercise: Normal Chest Pain: No. Arrhythmia: Yes. Occasional PVC's ST Change: No. INTERPRETATION Stress EKG Conclusion: Nondiagnostic EKG due to pacing and multiple PVC's. Imaging Protocol IMAGE PROTOCOL: Rest Tc-99m/stress Tc-99m 1 day Rest: Stress: Viability: Radiopharm.Tc99m QwzofpzcoHb12b Sestamibi [id number] 32mCi Img Date 02/13/2017 02/13/2017 Inj-Img [id number]. 60min. Rest Admin Site:IV - Left WristAdministrator:PAULO Meyer, ARRT (R)(N) Stress Admin Site: IV - Left WristAdministrator: Garrison Wagner, RT (R)(N) STRESS DATA End Diast. Vol.134.0mlAv. Heart Rate84.0bpm End Syst. Vol.54.0mlCO Index BSA0.0L/min Myocardial Umly731.0gEject. Rwcquqaf89.0% Stress Rates Pk. Fill Rate2.56EDV/secLVtime Pk. Fill 122.37msec Pk. Empty Rate3.57ESV/secLVtime Pk. Kiykf113.43msec 1/3 Pk. Fill1.80EDV/sec Stress Scores Regional WT3.00Summed WT20.00 Regional WM0.00Summed WM13.00 LV Perfusion There is a moderate to large sized, severe in intensity fixed basal to distal inferior wall defect, s lightly more prominent on rest images than on stress images. Based on wall motion this likely represe nts diaphragmatic attenuation rather than true infarct. No active ischemia is noted. Wall Motion Grossly normal with an EF > 55% LV Perf. Quant 17 Seg. SSS12.00 17 Seg. SRS15.00 17 Seg. SDS0.00 Stress Defect Extent (% LAD)18.80Rest Defect Extent (% LAD)32.50Rev. Defect Extent (% LAD)0.00 Stress Defect Extent (% LCX) 38.80Rest Defect Extent (% LCX)37.50Rev. Defect Extent (% LCX)0.00 Stress Defect Extent (% RCA)14.40Rest Defect Extent (% RCA)18.90Rev. Defect Extent (% RCA)0.00 Stress Defect Extent (% PAULINE)25.00Rest Defect Extent (% PAULINE)31.70Rev. Defect Extent (% PAULINE)0.00 Other Information Quality:Average Risk Assessment: Low Risk Conclusion 1. Non-diagnostic EKG due to pacing and PVC's 2. There is a moderate to large sized, severe in intensity fixed basal to distal inferior wall defect , slightly more prominent on rest images than on stress images. Based on wall motion this likely repr esents diaphragmatic attenuation rather than true infarct. No active ischemia is noted. 3. Normal EF at 55% 4. Low risk study
== END | disposition home or self-care (01) ==
LOC: NM 08:20
PROVIDERS: ATTEND Internal Medicine Cardiovascular Disease
DX: I49.5 Sick sinus syndrome (principal); I48.91 Unspecified atrial fibrillation; I10 Essential (primary) hypertension; E11.9 Type 2 diabetes mellitus without complications; R74.8 Abnormal levels of other serum enzymes; Z86.73 Personal history of transient ischemic attack (TIA), and cerebral infarction without residual deficits
CPT/HCPCS: 78452; 93017; 96374; 96375; 96376; A9500; J2785

== ENCOUNTER 2017-09-28 18:57 | Inpatient (IN) | payer OTHER ==
[2017-09-28 20:00] LABS: ADD MAN DIFF? YES; BASO # 0.1 x10^3/uL (0.0-0.2); BASO % 1 % (0-3); EOS # 0.4 x10^3/uL (0.0-0.7); EOS % 2 % (0-3); HEMATOCRIT 33.6 % (39.0-53.0); HEMOGLOBIN 10.9 g/dL (13.0-17.5); LYMPH # 5.3 x10^3/uL (1.0-4.8); LYMPH % 25 % (24-48); MEAN CORPUSCULAR HEMOGLOBIN 26 pg (25-35); MEAN CORPUSCULAR HGB CONC 32 g/dL (31-37); MEAN CORPUSCULAR VOLUME 81 fL (79-100); MONO # 1.5 x10^3/uL (0.0-1.1); MONO % 7 % (0-9); NEUT # 13.7 x10^3uL (1.8-7.7); NEUT % 65 % (31-73); PLATELET COUNT 324 x10^3/uL (140-400); RED BLOOD COUNT 4.16 x10^6/uL (4.30-5.70); RED CELL DISTRIBUTION WIDTH 17.7 % (11.5-14.5); WHITE BLOOD COUNT 21.1 x10^3/uL (4.0-11.0)
[2017-09-28 20:07] LABS: INR 3.8 (0.8-1.1); PROTHROMBIN TIME PATIENT 36.4 SEC (11.7-14.0)
[2017-09-28 20:15] LABS: ANION GAP 9 (6-14); BLOOD UREA NITROGEN 29 mg/dL (8-26); BUN/CREATININE RATIO 6 (6-20); CALCIUM 9.4 mg/dL (8.5-10.1); CARBON DIOXIDE 30 mmol/L (21-32); CHLORIDE 104 mmol/L (98-107); CREATININE 5.1 mg/dL (0.7-1.3); GFR 13.5; GLUCOSE 112 mg/dL (70-99); POTASSIUM 3.8 mmol/L (3.5-5.1); SODIUM 143 mmol/L (136-145)
[2017-09-28 20:19] LABS: LACTIC ACID 1.8 mmol/L (0.4-2.0)
[2017-09-28 20:26] LABS: ALBUMIN 1.9 g/dL (3.4-5.0); ALBUMIN/GLOBULIN RATIO 0.4 (1.0-1.7); ALK PHOS 111 U/L (46-116); ALT (SGPT) 13 U/L (16-63); AST (SGOT) 9 U/L (15-37); TOTAL BILIRUBIN 0.7 mg/dL (0.2-1.0); TOTAL PROTEIN 6.2 g/dL (6.4-8.2)
[2017-09-28 20:51] LABS: % BANDS 5 % (0-9); % EOS 2 % (0-5); % LYMPHS 29 % (24-48); % MONOS 8 % (0-10); % SEGS 56 % (35-66); PLT ESTIMATE ADEQUATE (ADEQUATE)
[2017-09-28 20:52] LABS: ANISOCYTOSIS SLIGHT
[2017-09-28] MEDS: ALPRAZolam 0.25 MG TABLET PO (23:52)
[2017-09-28] MEDS: MORPHINE SULFATE 4 MG/ML DISP.SYRIN. IV (23:53)
[2017-09-29 08:15] LABS: POC GLUCOSE 65 mg/dL (70-99)
[2017-09-29] MEDS ORDERED: IV NORMAL SALINE 1000ML BAG 1,000 ML IV ×2 (10:38)
[2017-09-29] MEDS ORDERED: DIALYSIS PATIENT. MC ×2 (10:45)
[2017-09-29 11:18] LABS: INR 4.1 (0.8-1.1); PROTHROMBIN TIME PATIENT 39.2 SEC (11.7-14.0)
[2017-09-29] MEDS ORDERED: diphenhydrAMINE HCL 25 MG CAPSULE PO (11:30)
[2017-09-29] MEDS ORDERED: NITROGLYCERIN SUBLINGUAL 0.4 MG BOTTLE OF 25. SL (12:00)
[2017-09-29] MEDS ORDERED: BISACODYL 5 MG TABLET.DR. PO (12:00)
[2017-09-29] MEDS ORDERED: PHENOL ORAL SPRAY 177ML BOTTLE. MM (12:00)
[2017-09-29] MEDS: PHYTONADIONE (VIT K1) IV 10 MG in IV DEXTROSE 5% 50 ML IV (12:09)
[2017-09-29] MEDS: MORPHINE SULFATE 4 MG/ML DISP.SYRIN. IV ×2 (12:28→14:32)
[2017-09-29] MEDS: ALPRAZolam 0.25 MG TABLET PO (12:32)
[2017-09-29 12:47] LABS: POC GLUCOSE 97 mg/dL (70-99)
[2017-09-29] MEDS: FOLIC/VIT B COMP W-C (RENAL) TABLET. PO (13:00)
[2017-09-29] MEDS: NEOMY/BACITR/POLYMYXIN OINT PACKET. TP ×2 (13:00→22:15)
[2017-09-29] MEDS: CALCIUM CARBONATE 500 MG TABLET PO ×2 (13:00→18:00)
[2017-09-29] MEDS: FINASTERIDE 5 MG TABLET. PO (13:00)
[2017-09-29] MEDS: LACTOBACILLUS RHAMNOSUS GG 1 CAPSULE. PO ×2 (13:00→21:00)
[2017-09-29] MEDS: PANTOPRAZOLE IV PUSH 40 MG VIAL. IVP (13:00)
[2017-09-29] MEDS: FERROUS SULFATE 325 MG TABLET. PO (13:00)
[2017-09-29] MEDS ORDERED: PANTOPRAZOLE 40 MG TABLET.DR. PO (13:00)
[2017-09-29] MEDS: ASCORBIC ACID 500 MG TABLET PO (13:00)
[2017-09-29] MEDS: LIDOCAINE WITH 8.4% SOD BICARB 3 ML DISP.SYRIN. INJ (13:30)
[2017-09-29] MEDS: VANCOMYCIN 1.5 GM in IV 1/2 NORMAL SALINE 500 ML IV ×2 (14:00→23:53)
[2017-09-29] MEDS: PIPERACILLIN/TAZOBACTAM 2.25 GM in IV NORMAL SALINE 50ML 50 ML IV ×2 (14:00→22:15)
[2017-09-29] MEDS: VANCOMYCIN PER PHARMACY MC ×2 (15:55→20:22)
[2017-09-29] MEDS: ALBUTEROL SULFATE 2.5 MG/3 ML NEBU. NEB ×2 (16:29→16:30)
[2017-09-29 17:38] LABS: POC GLUCOSE 81 mg/dL (70-99)
[2017-09-29] MEDS ORDERED: ALBUTEROL SULFATE 2.5 MG/3 ML NEBU. NEB (18:00)
[2017-09-29] MEDS: IV NORMAL SALINE 500ML BAG 500 ML IV (20:00)
[2017-09-29] MEDS: METOPROLOL TART IMMED RELEASE 25 MG TABLET. PO (20:00)
[2017-09-29] MEDS: METOPROLOL TARTRATE 5 MG/5 ML VIAL. IVP (20:32)
[2017-09-29] MEDS: DARBEPOETIN ALFA 60 MCG/0.3 ML DISP.SYRIN. SQ (22:15)
[2017-09-29 22:16] LABS: MRSA BY PCR Negative (Negative)
[2017-09-29] MEDS ORDERED: VANCOMYCIN PER PHARMACY MC (23:30)
[2017-09-30 00:24] LABS: LACTIC ACID 1.2 mmol/L (0.4-2.0)
[2017-09-30] MEDS: METOPROLOL TART IMMED RELEASE 25 MG TABLET. PO ×4 (01:26→18:00)
[2017-09-30] MEDS: VANCOMYCIN PER PHARMACY MC (03:25)
[2017-09-30] MEDS: MORPHINE SULFATE 4 MG/ML DISP.SYRIN. IV ×5 (04:42→20:33)
[2017-09-30] MEDS: PIPERACILLIN/TAZOBACTAM 2.25 GM in IV NORMAL SALINE 50ML 50 ML IV ×3 (05:34→22:28)
[2017-09-30] MEDS: ALPRAZolam 0.25 MG TABLET PO ×2 (05:37→15:10)
[2017-09-30] MEDS: PANTOPRAZOLE IV PUSH 40 MG VIAL. IVP (07:30)
[2017-09-30 07:53] LABS: POC GLUCOSE 50 mg/dL (70-99)
[2017-09-30 08:15] LABS: POC GLUCOSE 50 mg/dL (70-99)
[2017-09-30] MEDS: POLYETHYLENE GLYCOL 3350 17 GM PACKET. PO (08:22)
[2017-09-30] MEDS: FERROUS SULFATE 325 MG TABLET. PO (08:22)
[2017-09-30] MEDS: FOLIC/VIT B COMP W-C (RENAL) TABLET. PO (08:23)
[2017-09-30] MEDS: CALCIUM CARBONATE 500 MG TABLET PO ×3 (08:23→18:21)
[2017-09-30] MEDS: ASCORBIC ACID 500 MG TABLET PO (08:23)
[2017-09-30] MEDS: LACTOBACILLUS RHAMNOSUS GG 1 CAPSULE. PO ×2 (08:23→20:28)
[2017-09-30] MEDS: FINASTERIDE 5 MG TABLET. PO (08:24)
[2017-09-30] MEDS: NEOMY/BACITR/POLYMYXIN OINT PACKET. TP ×2 (08:25→20:28)
[2017-09-30 08:38] LABS: INR 1.6 (0.8-1.1); PROTHROMBIN TIME PATIENT 18.2 SEC (11.7-14.0)
[2017-09-30 10:47] LABS: ALBUMIN 1.7 g/dL (3.4-5.0); ALBUMIN/GLOBULIN RATIO 0.4 (1.0-1.7); ALK PHOS 101 U/L (46-116); ALT (SGPT) 9 U/L (16-63); ANION GAP 9 (6-14); AST (SGOT) 10 U/L (15-37); BLOOD UREA NITROGEN 25 mg/dL (8-26); BUN/CREATININE RATIO 6 (6-20); CALCIUM 8.8 mg/dL (8.5-10.1); CARBON DIOXIDE 29 mmol/L (21-32); CHLORIDE 103 mmol/L (98-107); CREATININE 4.5 mg/dL (0.7-1.3); GFR 15.6; GLUCOSE 79 mg/dL (70-99); POTASSIUM 3.7 mmol/L (3.5-5.1); SODIUM 141 mmol/L (136-145); TOTAL BILIRUBIN 0.8 mg/dL (0.2-1.0); TOTAL PROTEIN 5.5 g/dL (6.4-8.2)
[2017-09-30 11:16] LABS: POC GLUCOSE 93 mg/dL (70-99)
[2017-09-30 11:19] LABS: ADD MAN DIFF? NO
[2017-09-30 11:22] LABS: BASO # 0.1 x10^3/uL (0.0-0.2); BASO % 0 % (0-3); EOS # 0.5 x10^3/uL (0.0-0.7); EOS % 3 % (0-3); HEMATOCRIT 26.7 % (39.0-53.0); HEMOGLOBIN 8.9 g/dL (13.0-17.5); LYMPH # 4.3 x10^3/uL (1.0-4.8); LYMPH % 27 % (24-48); MEAN CORPUSCULAR HEMOGLOBIN 27 pg (25-35); MEAN CORPUSCULAR HGB CONC 33 g/dL (31-37); MEAN CORPUSCULAR VOLUME 80 fL (79-100); MONO # 1.2 x10^3/uL (0.0-1.1); MONO % 8 % (0-9); NEUT # 9.8 x10^3uL (1.8-7.7); NEUT % 62 % (31-73); PLATELET COUNT 247 x10^3/uL (140-400); RED BLOOD COUNT 3.35 x10^6/uL (4.30-5.70); RED CELL DISTRIBUTION WIDTH 17.7 % (11.5-14.5); WHITE BLOOD COUNT 15.9 x10^3/uL (4.0-11.0)
[2017-09-30] MEDS: INSULIN LISPRO 300 UNITS/3 ML INSULN.PEN. SQ ×2 (11:59→17:00)
[2017-09-30] MEDS: HYDROcodone/APAP 5/325MG 1 TAB TABLET PO (15:10)
[2017-09-30 16:19] LABS: CROSSMATCH AHG 1 1
[2017-09-30 16:21] LABS: POC GLUCOSE 58 mg/dL (70-99)
[2017-09-30] MEDS: DEXTROSE 50% 25 GM / 50ML DISP.SYRIN. IV (16:26)
[2017-09-30] MEDS: ONDANSETRON PF 4 MG/2 ML VIAL. IV (16:52)
[2017-09-30 17:13] LABS: POC GLUCOSE 93 mg/dL (70-99)
[2017-09-30] MEDS: DULoxetine HCL 20 MG CAPSULE.DR PO (18:21)
[2017-09-30] MEDS: PREGABALIN 25 MG CAPSULE PO (20:28)
[2017-10-01] MEDS: METOPROLOL TART IMMED RELEASE 25 MG TABLET. PO ×4 (00:27→17:19)
[2017-10-01] MEDS: MORPHINE SULFATE 4 MG/ML DISP.SYRIN. IV (00:27)
[2017-10-01] MEDS: ALPRAZolam 0.25 MG TABLET PO (00:31)
[2017-10-01 00:48] LABS: POC GLUCOSE 88 mg/dL (70-99)
[2017-10-01 00:48] LABS: POC GLUCOSE 75 mg/dL (70-99)
[2017-10-01 01:16] LABS: MAGNESIUM 1.7 mg/dL (1.8-2.4)
[2017-10-01 01:16] LABS: POTASSIUM 3.9 mmol/L (3.5-5.1)
[2017-10-01] MEDS: IV NORMAL SALINE 1000ML BAG 1,000 ML IV ×2 (03:30→21:01)
[2017-10-01] MEDS: PIPERACILLIN/TAZOBACTAM 2.25 GM in IV NORMAL SALINE 50ML 50 ML IV ×3 (05:00→22:33)
[2017-10-01] MEDS: VANCOMYCIN RANDOM LEVEL. MC (06:00)
[2017-10-01 07:04] LABS: ANION GAP 8 (6-14); BLOOD UREA NITROGEN 29 mg/dL (8-26); CALCIUM 8.6 mg/dL (8.5-10.1); CARBON DIOXIDE 29 mmol/L (21-32); CHLORIDE 104 mmol/L (98-107); CREATININE 5.2 mg/dL (0.7-1.3); GFR 13.2; GLUCOSE 79 mg/dL (70-99); POTASSIUM 3.7 mmol/L (3.5-5.1); SODIUM 141 mmol/L (136-145)
[2017-10-01 07:15] LABS: HEMATOCRIT 26.2 % (39.0-53.0); HEMOGLOBIN 8.3 g/dL (13.0-17.5); MEAN CORPUSCULAR HEMOGLOBIN 26 pg (25-35); MEAN CORPUSCULAR HGB CONC 32 g/dL (31-37); MEAN CORPUSCULAR VOLUME 81 fL (79-100); PLATELET COUNT 240 x10^3/uL (140-400); RED BLOOD COUNT 3.25 x10^6/uL (4.30-5.70); RED CELL DISTRIBUTION WIDTH 17.8 % (11.5-14.5); WHITE BLOOD COUNT 14.2 x10^3/uL (4.0-11.0)
[2017-10-01 07:34] LABS: INR 1.7 (0.8-1.1)
[2017-10-01] MEDS: INSULIN LISPRO 300 UNITS/3 ML INSULN.PEN. SQ ×3 (08:00→17:00)
[2017-10-01] MEDS: NEOMY/BACITR/POLYMYXIN OINT PACKET. TP ×2 (08:28→21:01)
[2017-10-01] MEDS: PANTOPRAZOLE IV PUSH 40 MG VIAL. IVP (08:28)
[2017-10-01] MEDS: DEXTROSE 50% 25 GM / 50ML DISP.SYRIN. IV ×2 (08:29→20:54)
[2017-10-01] MEDS: VANCOMYCIN PER PHARMACY MC (08:38)
[2017-10-01] MEDS: IV RINGERS,LACTATED 1000ML 1,000 ML IV (08:40)
[2017-10-01] MEDS ORDERED: fentaNYL PF VIAL 100 MCG/2 ML VIAL IV ×2 (08:45)
[2017-10-01] MEDS ORDERED: ONDANSETRON PF 4 MG/2 ML VIAL. IV (08:45)
[2017-10-01] MEDS ORDERED: LIDOCAINE 1% PF 2 ML VIAL. ID (08:45)
[2017-10-01] MEDS ORDERED: PROCHLORPERAZINE 10 MG/2 ML VIAL. IV (08:45)
[2017-10-01 08:55] LABS: POC GLUCOSE 54 mg/dL (70-99)
[2017-10-01] MEDS: FOLIC/VIT B COMP W-C (RENAL) TABLET. PO (09:00)
[2017-10-01] MEDS: ASCORBIC ACID 500 MG TABLET PO (09:00)
[2017-10-01] MEDS: LACTOBACILLUS RHAMNOSUS GG 1 CAPSULE. PO ×2 (09:00→21:01)
[2017-10-01] MEDS: DULoxetine HCL 20 MG CAPSULE.DR PO (09:00)
[2017-10-01] MEDS: PREGABALIN 25 MG CAPSULE PO ×2 (09:00→21:01)
[2017-10-01] MEDS: FERROUS SULFATE 325 MG TABLET. PO (09:00)
[2017-10-01] MEDS: CALCIUM CARBONATE 500 MG TABLET PO ×3 (09:00→18:00)
[2017-10-01] MEDS: FINASTERIDE 5 MG TABLET. PO (09:00)
[2017-10-01 09:02] LABS: POC GLUCOSE 124 mg/dL (70-99)
[2017-10-01 12:22] LABS: POC GLUCOSE 90 mg/dL (70-99)
[2017-10-01 13:50] LABS: IMMEDIATE SPIN CROSSMATCH 1
[2017-10-01] MEDS: HYDROcodone/APAP 5/325MG 1 TAB TABLET PO (14:00)
[2017-10-01] MEDS ORDERED: PHENOL ORAL SPRAY 177ML BOTTLE. PO (16:15)
[2017-10-01] MEDS: VANCOMYCIN 500 MG in IV NORMAL SALINE 100ML 100 ML IV (16:35)
[2017-10-01 17:09] LABS: POC GLUCOSE 76 mg/dL (70-99)
[2017-10-01 20:43] LABS: POC GLUCOSE 68 mg/dL (70-99)
[2017-10-01 21:17] LABS: POC GLUCOSE 114 mg/dL (70-99)
[2017-10-02] MEDS: HYDROcodone/APAP 5/325MG 1 TAB TABLET PO ×2 (03:13→21:19)
[2017-10-02] MEDS: PIPERACILLIN/TAZOBACTAM 2.25 GM in IV NORMAL SALINE 50ML 50 ML IV ×3 (05:42→21:35)
[2017-10-02] MEDS: METOPROLOL TART IMMED RELEASE 25 MG TABLET. PO ×4 (06:00→18:00)
[2017-10-02 06:16] LABS: ADD MAN DIFF? NO
[2017-10-02 06:21] LABS: BASO # 0.2 x10^3/uL (0.0-0.2); BASO % 1 % (0-3); EOS # 0.5 x10^3/uL (0.0-0.7); EOS % 2 % (0-3); HEMATOCRIT 32.4 % (39.0-53.0); HEMOGLOBIN 10.6 g/dL (13.0-17.5); LYMPH # 6.3 x10^3/uL (1.0-4.8); LYMPH % 31 % (24-48); MEAN CORPUSCULAR HEMOGLOBIN 27 pg (25-35); MEAN CORPUSCULAR HGB CONC 33 g/dL (31-37); MEAN CORPUSCULAR VOLUME 81 fL (79-100); MONO # 1.3 x10^3/uL (0.0-1.1); MONO % 7 % (0-9); NEUT # 11.7 x10^3uL (1.8-7.7); NEUT % 59 % (31-73); PLATELET COUNT 285 x10^3/uL (140-400); RED CELL DISTRIBUTION WIDTH 17.5 % (11.5-14.5)
[2017-10-02 06:30] LABS: ANION GAP 12 (6-14); BLOOD UREA NITROGEN 34 mg/dL (8-26); CALCIUM 8.8 mg/dL (8.5-10.1); CARBON DIOXIDE 26 mmol/L (21-32); CHLORIDE 104 mmol/L (98-107); CREATININE 6.1 mg/dL (0.7-1.3); GLUCOSE 104 mg/dL (70-99); POTASSIUM 4.3 mmol/L (3.5-5.1); SODIUM 142 mmol/L (136-145)
[2017-10-02] MEDS: INSULIN LISPRO 300 UNITS/3 ML INSULN.PEN. SQ ×3 (08:00→17:00)
[2017-10-02] MEDS: DEXTROSE 50% 25 GM / 50ML DISP.SYRIN. IV (08:09)
[2017-10-02] MEDS: FERROUS SULFATE 325 MG TABLET. PO (08:10)
[2017-10-02] MEDS: FOLIC/VIT B COMP W-C (RENAL) TABLET. PO (08:10)
[2017-10-02] MEDS: CALCIUM CARBONATE 500 MG TABLET PO ×3 (08:10→17:59)
[2017-10-02] MEDS: DULoxetine HCL 20 MG CAPSULE.DR PO (08:10)
[2017-10-02] MEDS: PREGABALIN 25 MG CAPSULE PO ×2 (08:10→21:15)
[2017-10-02] MEDS: LACTOBACILLUS RHAMNOSUS GG 1 CAPSULE. PO ×2 (08:10→21:14)
[2017-10-02] MEDS: ASCORBIC ACID 500 MG TABLET PO (08:10)
[2017-10-02] MEDS: NEOMY/BACITR/POLYMYXIN OINT PACKET. TP ×2 (08:11→21:15)
[2017-10-02] MEDS: FINASTERIDE 5 MG TABLET. PO (08:11)
[2017-10-02] MEDS: PANTOPRAZOLE IV PUSH 40 MG VIAL. IVP (08:11)
[2017-10-02 08:40] LABS: POC GLUCOSE 69 mg/dL (70-99)
[2017-10-02 09:06] LABS: POC GLUCOSE 132 mg/dL (70-99)
[2017-10-02 09:06] LABS: POC GLUCOSE 68 mg/dL (70-99)
[2017-10-02] MEDS ORDERED: IV NORMAL SALINE 1000ML BAG 1,000 ML IV (09:37)
[2017-10-02] MEDS ORDERED: DIALYSIS PATIENT. MC ×2 (09:45)
[2017-10-02 10:30] LABS: HEPATITIS B SURFACE AG Nonreactive (Nonreactive)
[2017-10-02 11:09] LABS: HEPATITIS B SURFACE AB Reactive
[2017-10-02] MEDS: DIGOXIN IV 500 MCG/2 ML AMPUL. IV (15:00)
[2017-10-02 18:06] LABS: POC GLUCOSE 116 mg/dL (70-99)
[2017-10-02 18:06] LABS: POC GLUCOSE 97 mg/dL (70-99)
[2017-10-02] MEDS: ALPRAZolam 0.25 MG TABLET PO (20:08)
[2017-10-02 21:02] LABS: POC GLUCOSE 108 mg/dL (70-99)
[2017-10-03] MEDS: IV NORMAL SALINE 1000ML BAG 1,000 ML IV ×2 (01:43→15:30)
[2017-10-03] MEDS: HYDROcodone/APAP 5/325MG 1 TAB TABLET PO ×2 (03:06→18:08)
[2017-10-03] MEDS: PIPERACILLIN/TAZOBACTAM 2.25 GM in IV NORMAL SALINE 50ML 50 ML IV ×3 (06:07→22:08)
[2017-10-03] MEDS: METOPROLOL TART IMMED RELEASE 25 MG TABLET. PO ×4 (06:09→17:23)
[2017-10-03] MEDS: ONDANSETRON PF 4 MG/2 ML VIAL. IV (06:18)
[2017-10-03 06:51] LABS: ANION GAP 7 (6-14); BLOOD UREA NITROGEN 18 mg/dL (8-26); CALCIUM 8.5 mg/dL (8.5-10.1); CARBON DIOXIDE 30 mmol/L (21-32); CHLORIDE 102 mmol/L (98-107); CREATININE 3.7 mg/dL (0.7-1.3); GFR 19.5; GLUCOSE 92 mg/dL (70-99); POTASSIUM 3.8 mmol/L (3.5-5.1); SODIUM 139 mmol/L (136-145)
[2017-10-03 07:02] LABS: INR 1.6 (0.8-1.1); PROTHROMBIN TIME PATIENT 18.6 SEC (11.7-14.0)
[2017-10-03] MEDS ORDERED: IV NORMAL SALINE 1000ML BAG 1,000 ML IV ×2 (07:45)
[2017-10-03] MEDS ORDERED: DIALYSIS PATIENT. MC ×2 (07:45)
[2017-10-03] MEDS: INSULIN LISPRO 300 UNITS/3 ML INSULN.PEN. SQ ×3 (08:00→16:10)
[2017-10-03 08:34] LABS: POC GLUCOSE 85 mg/dL (70-99)
[2017-10-03] MEDS: FOLIC/VIT B COMP W-C (RENAL) TABLET. PO (08:59)
[2017-10-03] MEDS: ASCORBIC ACID 500 MG TABLET PO (08:59)
[2017-10-03] MEDS: CALCIUM CARBONATE 500 MG TABLET PO ×3 (08:59→17:22)
[2017-10-03] MEDS: PREGABALIN 25 MG CAPSULE PO ×2 (08:59→22:17)
[2017-10-03] MEDS: FINASTERIDE 5 MG TABLET. PO (08:59)
[2017-10-03] MEDS: NEOMY/BACITR/POLYMYXIN OINT PACKET. TP ×2 (08:59→22:04)
[2017-10-03] MEDS: LACTOBACILLUS RHAMNOSUS GG 1 CAPSULE. PO ×2 (08:59→22:07)
[2017-10-03] MEDS: PANTOPRAZOLE IV PUSH 40 MG VIAL. IVP (08:59)
[2017-10-03] MEDS: DULoxetine HCL 20 MG CAPSULE.DR PO (08:59)
[2017-10-03] MEDS: FERROUS SULFATE 325 MG TABLET. PO (09:00)
[2017-10-03 09:51] LABS: C DIFF BY PCR Positive (Negative)
[2017-10-03] MEDS: VANCOMYCIN 125 MG/2.5 ML ORAL SOLUTION. PO ×4 (13:00→22:16)
[2017-10-03] MEDS: MEGESTROL 400 MG/10 ML ORAL.SUSP. PO (14:21)
[2017-10-03] MEDS: MICAFUNGIN 100 MG in IV DEXTROSE 5% 100ML 100 ML IV (14:23)
[2017-10-03 14:57] LABS: POC GLUCOSE 66 mg/dL (70-99)
[2017-10-03] MEDS: DEXTROSE 50% 25 GM / 50ML DISP.SYRIN. IV ×2 (15:13→15:41)
[2017-10-03 15:30] LABS: GLUCOSE 110 mg/dL (70-99)
[2017-10-03] MEDS: VANCOMYCIN 500 MG in IV NORMAL SALINE 100ML 100 ML IV (16:13)
[2017-10-03] MEDS: IV DEXTROSE 10% 1,000 ML IV (16:13)
[2017-10-03 16:21] LABS: POC GLUCOSE 66 mg/dL (70-99)
[2017-10-03 16:21] LABS: POC GLUCOSE 31 mg/dL (70-99)
[2017-10-03 16:21] LABS: POC GLUCOSE 167 mg/dL (70-99)
[2017-10-03 21:24] LABS: POC GLUCOSE 166 mg/dL (70-99)
[2017-10-03] MEDS: NYSTATIN 100,000 UNITS/ML 5 ML ORAL.SUSP. SWSW (22:08)
[2017-10-04] MEDS: PIPERACILLIN/TAZOBACTAM 2.25 GM in IV NORMAL SALINE 50ML 50 ML IV ×3 (06:01→22:13)
[2017-10-04] MEDS: METOPROLOL TART IMMED RELEASE 25 MG TABLET. PO ×5 (06:57→23:51)
[2017-10-04] MEDS: INSULIN LISPRO 300 UNITS/3 ML INSULN.PEN. SQ ×3 (08:00→17:00)
[2017-10-04 08:09] LABS: POC GLUCOSE 138 mg/dL (70-99)
[2017-10-04] MEDS: VANCOMYCIN 125 MG/2.5 ML ORAL SOLUTION. PO ×4 (08:57→19:44)
[2017-10-04] MEDS: NEOMY/BACITR/POLYMYXIN OINT PACKET. TP ×2 (08:58→19:44)
[2017-10-04] MEDS: CALCIUM CARBONATE 500 MG TABLET PO ×3 (08:58→17:17)
[2017-10-04] MEDS: PANTOPRAZOLE IV PUSH 40 MG VIAL. IVP (08:58)
[2017-10-04] MEDS: LACTOBACILLUS RHAMNOSUS GG 1 CAPSULE. PO ×2 (08:58→19:43)
[2017-10-04] MEDS: NYSTATIN 100,000 UNITS/ML 5 ML ORAL.SUSP. SWSW ×4 (08:58→19:43)
[2017-10-04] MEDS: MEGESTROL 400 MG/10 ML ORAL.SUSP. PO (08:58)
[2017-10-04] MEDS: FOLIC/VIT B COMP W-C (RENAL) TABLET. PO (08:59)
[2017-10-04] MEDS: PREGABALIN 25 MG CAPSULE PO ×2 (08:59→19:43)
[2017-10-04] MEDS: FERROUS SULFATE 325 MG TABLET. PO (08:59)
[2017-10-04] MEDS: DULoxetine HCL 20 MG CAPSULE.DR PO (08:59)
[2017-10-04] MEDS: FINASTERIDE 5 MG TABLET. PO (08:59)
[2017-10-04] MEDS: ASCORBIC ACID 500 MG TABLET PO (08:59)
[2017-10-04] MEDS: MICAFUNGIN 100 MG in IV DEXTROSE 5% 100ML 100 ML IV (09:00)
[2017-10-04] MEDS: IV NORMAL SALINE 1000ML BAG 1,000 ML IV (11:30)
[2017-10-04 11:54] LABS: POC GLUCOSE 140 mg/dL (70-99)
[2017-10-04 17:11] LABS: POC GLUCOSE 136 mg/dL (70-99)
[2017-10-04] MEDS: HYDROcodone/APAP 5/325MG 1 TAB TABLET PO (19:44)
[2017-10-04 20:57] LABS: POC GLUCOSE 110 mg/dL (70-99)
[2017-10-04] MEDS: IV DEXTROSE 10% 1,000 ML IV (23:51)
[2017-10-05 04:52] LABS: HEMATOCRIT 33.6 % (39.0-53.0); HEMOGLOBIN 10.8 g/dL (13.0-17.5); MEAN CORPUSCULAR HEMOGLOBIN 26 pg (25-35); MEAN CORPUSCULAR HGB CONC 32 g/dL (31-37); MEAN CORPUSCULAR VOLUME 81 fL (79-100); PLATELET COUNT 245 x10^3/uL (140-400); RED BLOOD COUNT 4.13 x10^6/uL (4.30-5.70); RED CELL DISTRIBUTION WIDTH 17.8 % (11.5-14.5); WHITE BLOOD COUNT 15.6 x10^3/uL (4.0-11.0)
[2017-10-05 05:01] LABS: INR 1.7 (0.8-1.1); PROTHROMBIN TIME PATIENT 19.5 SEC (11.7-14.0)
[2017-10-05 05:08] LABS: ANION GAP 6 (6-14); BLOOD UREA NITROGEN 14 mg/dL (8-26); CALCIUM 8.5 mg/dL (8.5-10.1); CARBON DIOXIDE 30 mmol/L (21-32); CHLORIDE 102 mmol/L (98-107); CREATININE 3.5 mg/dL (0.7-1.3); GFR 20.8; GLUCOSE 115 mg/dL (70-99); POTASSIUM 3.7 mmol/L (3.5-5.1); SODIUM 138 mmol/L (136-145)
[2017-10-05] MEDS: METOPROLOL TART IMMED RELEASE 25 MG TABLET. PO ×3 (06:29→18:14)
[2017-10-05] MEDS: PIPERACILLIN/TAZOBACTAM 2.25 GM in IV NORMAL SALINE 50ML 50 ML IV ×3 (06:29→21:43)
[2017-10-05] MEDS ORDERED: ONDANSETRON PF 4 MG/2 ML VIAL. IV (07:00)
[2017-10-05] MEDS ORDERED: fentaNYL PF VIAL 100 MCG/2 ML VIAL IV ×2 (07:00)
[2017-10-05] MEDS ORDERED: LIDOCAINE 1% PF 2 ML VIAL. ID (07:00)
[2017-10-05] MEDS ORDERED: PROCHLORPERAZINE 10 MG/2 ML VIAL. IV (07:00)
[2017-10-05] MEDS ORDERED: IV NORMAL SALINE 1000ML BAG 1,000 ML IV (08:00)
[2017-10-05] MEDS: INSULIN LISPRO 300 UNITS/3 ML INSULN.PEN. SQ ×3 (08:00→17:00)
[2017-10-05 08:13] LABS: POC GLUCOSE 113 mg/dL (70-99)
[2017-10-05] MEDS: FOLIC/VIT B COMP W-C (RENAL) TABLET. PO (09:00)
[2017-10-05] MEDS: LACTOBACILLUS RHAMNOSUS GG 1 CAPSULE. PO ×2 (09:00→19:44)
[2017-10-05] MEDS: DULoxetine HCL 20 MG CAPSULE.DR PO (09:00)
[2017-10-05] MEDS: FERROUS SULFATE 325 MG TABLET. PO (09:00)
[2017-10-05] MEDS: CALCIUM CARBONATE 500 MG TABLET PO ×3 (09:00→18:14)
[2017-10-05] MEDS: ASCORBIC ACID 500 MG TABLET PO (09:00)
[2017-10-05] MEDS: FINASTERIDE 5 MG TABLET. PO (09:00)
[2017-10-05] MEDS: MEGESTROL 400 MG/10 ML ORAL.SUSP. PO (09:00)
[2017-10-05] MEDS: PREGABALIN 25 MG CAPSULE PO ×2 (09:00→19:44)
[2017-10-05] MEDS: VANCOMYCIN 125 MG/2.5 ML ORAL SOLUTION. PO ×4 (09:09→21:43)
[2017-10-05] MEDS: PANTOPRAZOLE IV PUSH 40 MG VIAL. IVP (09:10)
[2017-10-05] MEDS: MICAFUNGIN 100 MG in IV DEXTROSE 5% 100ML 100 ML IV (09:10)
[2017-10-05] MEDS: NYSTATIN 100,000 UNITS/ML 5 ML ORAL.SUSP. SWSW ×4 (09:10→19:44)
[2017-10-05] MEDS: NEOMY/BACITR/POLYMYXIN OINT PACKET. TP ×2 (09:10→19:44)
[2017-10-05] MEDS: VANCOMYCIN PER PHARMACY MC (09:20)
[2017-10-05] MEDS: IV NORMAL SALINE 1000ML BAG 1,000 ML IV (09:33)
[2017-10-05] MEDS: MORPHINE SULFATE 4 MG/ML DISP.SYRIN. IV ×2 (10:52→19:44)
[2017-10-05] MEDS ORDERED: PROPOFOL 20 ML IV (11:25)
[2017-10-05] MEDS ORDERED: fentaNYL PF VIAL 100 MCG/2 ML VIAL (11:25)
[2017-10-05] MEDS ORDERED: LIDOCAINE 2% PF Vial for OR 5 ML VIAL. (11:25)
[2017-10-05] MEDS ORDERED: PHENYLEPHRINE in 0.9% NACL PF 1 MG/10 ML SYRINGE. IV (12:28)
[2017-10-05] MEDS ORDERED: PHENYLEPHRINE 10 MG/ML VIAL. (12:35)
[2017-10-05 13:25] LABS: TYPE AND SCREEN 1 1
[2017-10-05] MEDS ORDERED: SEVOFLURANE 61 TO 120 MINUTES. IH (13:26)
[2017-10-05] MEDS ORDERED: ONDANSETRON PF 4 MG/2 ML VIAL. (13:59)
[2017-10-05] MEDS: IV DEXTROSE 10% 1,000 ML IV (16:27)
[2017-10-05 16:37] LABS: POC GLUCOSE 81 mg/dL (70-99)
[2017-10-05 17:26] LABS: POC GLUCOSE 103 mg/dL (70-99)
[2017-10-05 21:07] LABS: POC GLUCOSE 136 mg/dL (70-99)
[2017-10-06] MEDS: METOPROLOL TART IMMED RELEASE 25 MG TABLET. PO ×4 (00:10→17:22)
[2017-10-06] MEDS: HYDROcodone/APAP 5/325MG 1 TAB TABLET PO ×2 (00:10→17:22)
[2017-10-06] MEDS: ALPRAZolam 0.25 MG TABLET PO ×3 (01:25→20:37)
[2017-10-06] MEDS: IV NORMAL SALINE 1000ML BAG 1,000 ML IV (03:30)
[2017-10-06] MEDS: PIPERACILLIN/TAZOBACTAM 2.25 GM in IV NORMAL SALINE 50ML 50 ML IV ×3 (05:13→22:59)
[2017-10-06] MEDS ORDERED: IV NORMAL SALINE 1000ML BAG 1,000 ML IV ×2 (06:59)
[2017-10-06] MEDS ORDERED: DIALYSIS PATIENT. MC ×2 (07:00)
[2017-10-06] MEDS: PANTOPRAZOLE IV PUSH 40 MG VIAL. IVP (07:30)
[2017-10-06] MEDS: INSULIN LISPRO 300 UNITS/3 ML INSULN.PEN. SQ ×3 (08:00→17:00)
[2017-10-06] MEDS: MORPHINE SULFATE 4 MG/ML DISP.SYRIN. IV ×2 (08:22→11:54)
[2017-10-06 08:23] LABS: POC GLUCOSE 170 mg/dL (70-99)
[2017-10-06] MEDS: ASCORBIC ACID 500 MG TABLET PO (09:00)
[2017-10-06] MEDS: FOLIC/VIT B COMP W-C (RENAL) TABLET. PO (09:00)
[2017-10-06] MEDS: FINASTERIDE 5 MG TABLET. PO (09:00)
[2017-10-06] MEDS: VANCOMYCIN 125 MG/2.5 ML ORAL SOLUTION. PO ×4 (09:00→21:17)
[2017-10-06] MEDS: LACTOBACILLUS RHAMNOSUS GG 1 CAPSULE. PO ×2 (09:00→21:17)
[2017-10-06] MEDS: FERROUS SULFATE 325 MG TABLET. PO (09:00)
[2017-10-06] MEDS: NYSTATIN 100,000 UNITS/ML 5 ML ORAL.SUSP. SWSW ×4 (09:00→21:22)
[2017-10-06] MEDS: CALCIUM CARBONATE 500 MG TABLET PO ×3 (09:00→17:24)
[2017-10-06] MEDS: NEOMY/BACITR/POLYMYXIN OINT PACKET. TP ×2 (09:00→21:22)
[2017-10-06] MEDS: MEGESTROL 400 MG/10 ML ORAL.SUSP. PO (09:00)
[2017-10-06] MEDS: DULoxetine HCL 20 MG CAPSULE.DR PO (09:00)
[2017-10-06] MEDS: PREGABALIN 25 MG CAPSULE PO ×2 (09:00→21:17)
[2017-10-06] MEDS: VANCOMYCIN PER PHARMACY MC (12:43)
[2017-10-06 13:41] LABS: POC GLUCOSE 74 mg/dL (70-99)
[2017-10-06] MEDS: MICAFUNGIN 100 MG in IV DEXTROSE 5% 100ML 100 ML IV (15:27)
[2017-10-06] MEDS: VANCOMYCIN 500 MG in IV NORMAL SALINE 100ML 100 ML IV (15:28)
[2017-10-06] MEDS: IV DEXTROSE 10% 1,000 ML IV (16:00)
[2017-10-06 17:20] LABS: POC GLUCOSE 103 mg/dL (70-99)
[2017-10-06 20:59] LABS: POC GLUCOSE 207 mg/dL (70-99)
[2017-10-06] MEDS: VITS A & D/LANOLIN TOPICAL OINTMENT 56GM TUBE. TP (21:18)
[2017-10-06] MEDS: DARBEPOETIN ALFA 60 MCG/0.3 ML DISP.SYRIN. SQ (21:18)
[2017-10-07] MEDS: METOPROLOL TART IMMED RELEASE 25 MG TABLET. PO ×5 (00:15→23:53)
[2017-10-07] MEDS: HYDROcodone/APAP 5/325MG 1 TAB TABLET PO ×3 (01:08→20:14)
[2017-10-07] MEDS: MORPHINE SULFATE 4 MG/ML DISP.SYRIN. IV ×3 (01:14→16:58)
[2017-10-07] MEDS: IV NORMAL SALINE 1000ML BAG 1,000 ML IV ×2 (01:18→19:30)
[2017-10-07] MEDS: PIPERACILLIN/TAZOBACTAM 2.25 GM in IV NORMAL SALINE 50ML 50 ML IV (06:07)
[2017-10-07 06:20] LABS: POC GLUCOSE 179 mg/dL (70-99)
[2017-10-07] MEDS: ONDANSETRON PF 4 MG/2 ML VIAL. IV (06:21)
[2017-10-07] MEDS: INSULIN LISPRO 300 UNITS/3 ML INSULN.PEN. SQ ×3 (08:00→16:49)
[2017-10-07 08:11] LABS: POC GLUCOSE 182 mg/dL (70-99)
[2017-10-07] MEDS: PREGABALIN 25 MG CAPSULE PO ×2 (09:00→21:03)
[2017-10-07] MEDS: NYSTATIN 100,000 UNITS/ML 5 ML ORAL.SUSP. SWSW ×4 (09:17→21:04)
[2017-10-07] MEDS: DULoxetine HCL 20 MG CAPSULE.DR PO (09:17)
[2017-10-07] MEDS: MEGESTROL 400 MG/10 ML ORAL.SUSP. PO (09:17)
[2017-10-07] MEDS: ASCORBIC ACID 500 MG TABLET PO (09:18)
[2017-10-07] MEDS: FINASTERIDE 5 MG TABLET. PO (09:18)
[2017-10-07] MEDS: NEOMY/BACITR/POLYMYXIN OINT PACKET. TP ×2 (09:18→20:13)
[2017-10-07] MEDS: CALCIUM CARBONATE 500 MG TABLET PO ×3 (09:18→16:59)
[2017-10-07] MEDS: LACTOBACILLUS RHAMNOSUS GG 1 CAPSULE. PO ×2 (09:18→21:04)
[2017-10-07] MEDS: FOLIC/VIT B COMP W-C (RENAL) TABLET. PO (09:18)
[2017-10-07] MEDS: PANTOPRAZOLE IV PUSH 40 MG VIAL. IVP (09:18)
[2017-10-07] MEDS: FERROUS SULFATE 325 MG TABLET. PO (09:18)
[2017-10-07] MEDS: MICAFUNGIN 100 MG in IV NORMAL SALINE 100ML 100 ML IV (09:19)
[2017-10-07] MEDS: VANCOMYCIN 125 MG/2.5 ML ORAL SOLUTION. PO ×4 (09:30→21:03)
[2017-10-07 12:18] LABS: POC GLUCOSE 164 mg/dL (70-99)
[2017-10-07] MEDS: IV DEXTROSE 10% 1,000 ML IV (16:36)
[2017-10-07 16:53] LABS: POC GLUCOSE 134 mg/dL (70-99)
[2017-10-07 17:20] LABS: THYROID STIM HORMONE (TSH) 0.852 uIU/mL (0.358-3.74)
[2017-10-07] MEDS: ALPRAZolam 0.25 MG TABLET PO (21:06)
[2017-10-07 21:23] LABS: POC GLUCOSE 166 mg/dL (70-99)
[2017-10-08] MEDS: IV NORMAL SALINE 1000ML BAG 1,000 ML IV (02:21)
[2017-10-08] MEDS: METOPROLOL TART IMMED RELEASE 25 MG TABLET. PO ×3 (06:00→18:00)
[2017-10-08 06:14] LABS: ADD MAN DIFF? NO
[2017-10-08 06:55] LABS: ALBUMIN 1.5 g/dL (3.4-5.0); ALBUMIN/GLOBULIN RATIO 0.3 (1.0-1.7); ALK PHOS 112 U/L (46-116); ALT (SGPT) 14 U/L (16-63); ANION GAP 6 (6-14); AST (SGOT) 14 U/L (15-37); BLOOD UREA NITROGEN 16 mg/dL (8-26); BUN/CREATININE RATIO 4 (6-20); CARBON DIOXIDE 32 mmol/L (21-32); CHLORIDE 102 mmol/L (98-107); CREATININE 3.8 mg/dL (0.7-1.3); GFR 18.9; GLUCOSE 206 mg/dL (70-99); POTASSIUM 3.6 mmol/L (3.5-5.1); SODIUM 140 mmol/L (136-145); TOTAL BILIRUBIN 0.5 mg/dL (0.2-1.0)
[2017-10-08 07:08] LABS: BASO % 0 % (0-3); EOS # 0.2 x10^3/uL (0.0-0.7); EOS % 1 % (0-3); HEMATOCRIT 27.5 % (39.0-53.0); HEMOGLOBIN 8.8 g/dL (13.0-17.5); LYMPH # 6.7 x10^3/uL (1.0-4.8); LYMPH % 22 % (24-48); MEAN CORPUSCULAR HEMOGLOBIN 26 pg (25-35); MEAN CORPUSCULAR HGB CONC 32 g/dL (31-37); MEAN CORPUSCULAR VOLUME 82 fL (79-100); MONO # 1.7 x10^3/uL (0.0-1.1); MONO % 6 % (0-9); NEUT # 21.6 x10^3uL (1.8-7.7); NEUT % 71 % (31-73); PLATELET COUNT 265 x10^3/uL (140-400); RED BLOOD COUNT 3.38 x10^6/uL (4.30-5.70); RED CELL DISTRIBUTION WIDTH 18.1 % (11.5-14.5); WHITE BLOOD COUNT 30.3 x10^3/uL (4.0-11.0)
[2017-10-08] MEDS: INSULIN LISPRO 300 UNITS/3 ML INSULN.PEN. SQ ×3 (08:00→17:00)
[2017-10-08 08:07] LABS: POC GLUCOSE 171 mg/dL (70-99)
[2017-10-08] MEDS: DULoxetine HCL 20 MG CAPSULE.DR PO (08:54)
[2017-10-08] MEDS: ASCORBIC ACID 500 MG TABLET PO (08:54)
[2017-10-08] MEDS: FINASTERIDE 5 MG TABLET. PO (08:54)
[2017-10-08] MEDS: PREGABALIN 25 MG CAPSULE PO ×2 (08:54→21:33)
[2017-10-08] MEDS: FERROUS SULFATE 325 MG TABLET. PO (08:54)
[2017-10-08] MEDS: CALCIUM CARBONATE 500 MG TABLET PO ×3 (08:54→18:00)
[2017-10-08] MEDS: LACTOBACILLUS RHAMNOSUS GG 1 CAPSULE. PO ×2 (08:55→21:00)
[2017-10-08] MEDS: PANTOPRAZOLE IV PUSH 40 MG VIAL. IVP (08:55)
[2017-10-08] MEDS: MEGESTROL 400 MG/10 ML ORAL.SUSP. PO (08:55)
[2017-10-08] MEDS: NYSTATIN 100,000 UNITS/ML 5 ML ORAL.SUSP. SWSW ×4 (09:00→21:34)
[2017-10-08] MEDS: FOLIC/VIT B COMP W-C (RENAL) TABLET. PO (09:00)
[2017-10-08] MEDS: NEOMY/BACITR/POLYMYXIN OINT PACKET. TP ×2 (09:00→21:32)
[2017-10-08 09:25] LABS: ADD MAN DIFF? NO
[2017-10-08] MEDS: VANCOMYCIN 125 MG/2.5 ML ORAL SOLUTION. PO ×4 (09:27→21:34)
[2017-10-08] MEDS: MORPHINE SULFATE 4 MG/ML DISP.SYRIN. IV ×2 (09:27→18:38)
[2017-10-08] MEDS: MICAFUNGIN 100 MG in IV NORMAL SALINE 100ML 100 ML IV (09:27)
[2017-10-08 09:34] LABS: BASO % 0 % (0-3); EOS # 0.2 x10^3/uL (0.0-0.7); EOS % 1 % (0-3); HEMATOCRIT 26.8 % (39.0-53.0); HEMOGLOBIN 8.9 g/dL (13.0-17.5); LYMPH # 6.6 x10^3/uL (1.0-4.8); LYMPH % 24 % (24-48); MEAN CORPUSCULAR HEMOGLOBIN 27 pg (25-35); MEAN CORPUSCULAR HGB CONC 33 g/dL (31-37); MEAN CORPUSCULAR VOLUME 81 fL (79-100); MONO # 1.6 x10^3/uL (0.0-1.1); MONO % 6 % (0-9); NEUT # 18.7 x10^3uL (1.8-7.7); NEUT % 69 % (31-73); PLATELET COUNT 252 x10^3/uL (140-400); RED BLOOD COUNT 3.31 x10^6/uL (4.30-5.70); RED CELL DISTRIBUTION WIDTH 17.8 % (11.5-14.5); WHITE BLOOD COUNT 27.2 x10^3/uL (4.0-11.0)
[2017-10-08] MEDS ORDERED: IV NORMAL SALINE 1000ML BAG 1,000 ML IV ×2 (12:01)
[2017-10-08 12:10] LABS: POC GLUCOSE 149 mg/dL (70-99)
[2017-10-08] MEDS ORDERED: DIALYSIS PATIENT. MC (12:15)
[2017-10-08] MEDS ORDERED: diphenhydrAMINE 50 MG/ML VIAL IV ×2 (12:15)
[2017-10-08] MEDS: AMINO AC 3%/ELECTROLYTE/GLYCER 1,000 ML IV (13:08)
[2017-10-08] MEDS: HEPARIN PF for SUB-Q USE 5,000 UNIT/0.5 ML VIAL. SQ ×2 (14:00→21:35)
[2017-10-08] MEDS: PIPERACILLIN/TAZOBACTAM 2.25 GM in IV NORMAL SALINE 50ML 50 ML IV (17:00)
[2017-10-08] MEDS: IV DEXTROSE 10% 1,000 ML IV (18:39)
[2017-10-08 21:11] LABS: POC GLUCOSE 126 mg/dL (70-99)
[2017-10-08 21:12] LABS: PROCALCITONIN 2.32 ng/mL (0.00-0.10)
[2017-10-08] MEDS: WARFARIN 4 MG TABLET. PO (21:33)
[2017-10-08 22:08] LABS: POC GLUCOSE 177 mg/dL (70-99)
[2017-10-09] MEDS: PIPERACILLIN/TAZOBACTAM 2.25 GM in IV NORMAL SALINE 50ML 50 ML IV ×4 (00:18→22:26)
[2017-10-09] MEDS: MORPHINE SULFATE 4 MG/ML DISP.SYRIN. IV ×2 (05:33→23:03)
[2017-10-09] MEDS: HEPARIN PF for SUB-Q USE 5,000 UNIT/0.5 ML VIAL. SQ ×3 (05:36→22:51)
[2017-10-09] MEDS: METOPROLOL TART IMMED RELEASE 25 MG TABLET. PO ×5 (06:00→23:04)
[2017-10-09 06:36] LABS: ADD MAN DIFF? NO
[2017-10-09 06:50] LABS: BASO # 0.1 x10^3/uL (0.0-0.2); BASO % 0 % (0-3); EOS # 0.3 x10^3/uL (0.0-0.7); EOS % 1 % (0-3); HEMATOCRIT 26.3 % (39.0-53.0); HEMOGLOBIN 8.5 g/dL (13.0-17.5); LYMPH # 6.1 x10^3/uL (1.0-4.8); LYMPH % 26 % (24-48); MEAN CORPUSCULAR HEMOGLOBIN 26 pg (25-35); MEAN CORPUSCULAR HGB CONC 32 g/dL (31-37); MEAN CORPUSCULAR VOLUME 82 fL (79-100); MONO # 1.7 x10^3/uL (0.0-1.1); MONO % 7 % (0-9); NEUT # 15.5 x10^3uL (1.8-7.7); NEUT % 65 % (31-73); PLATELET COUNT 258 x10^3/uL (140-400); RED BLOOD COUNT 3.22 x10^6/uL (4.30-5.70); RED CELL DISTRIBUTION WIDTH 18.2 % (11.5-14.5); WHITE BLOOD COUNT 23.7 x10^3/uL (4.0-11.0)
[2017-10-09 06:51] LABS: INR 1.5 (0.8-1.1); PROTHROMBIN TIME PATIENT 17.6 SEC (11.7-14.0)
[2017-10-09 06:57] LABS: ALBUMIN 1.5 g/dL (3.4-5.0); ALBUMIN/GLOBULIN RATIO 0.3 (1.0-1.7); ALK PHOS 103 U/L (46-116); ALT (SGPT) 16 U/L (16-63); ANION GAP 2 (6-14); AST (SGOT) 14 U/L (15-37); BLOOD UREA NITROGEN 15 mg/dL (8-26); BUN/CREATININE RATIO 5 (6-20); CALCIUM 8.6 mg/dL (8.5-10.1); CARBON DIOXIDE 33 mmol/L (21-32); CHLORIDE 100 mmol/L (98-107); CREATININE 2.9 mg/dL (0.7-1.3); GFR 25.9; GLUCOSE 205 mg/dL (70-99); POTASSIUM 3.4 mmol/L (3.5-5.1); SODIUM 135 mmol/L (136-145); TOTAL BILIRUBIN 0.5 mg/dL (0.2-1.0); TOTAL PROTEIN 5.9 g/dL (6.4-8.2)
[2017-10-09 07:57] LABS: POC GLUCOSE 178 mg/dL (70-99)
[2017-10-09] MEDS: PANTOPRAZOLE IV PUSH 40 MG VIAL. IVP (08:57)
[2017-10-09] MEDS: AMINO AC 3%/ELECTROLYTE/GLYCER 1,000 ML IV (08:57)
[2017-10-09] MEDS: CALCIUM CARBONATE 500 MG TABLET PO ×3 (08:58→17:34)
[2017-10-09] MEDS: LACTOBACILLUS RHAMNOSUS GG 1 CAPSULE. PO ×2 (08:58→20:47)
[2017-10-09] MEDS: FOLIC/VIT B COMP W-C (RENAL) TABLET. PO (08:58)
[2017-10-09] MEDS: NEOMY/BACITR/POLYMYXIN OINT PACKET. TP ×2 (08:58→20:47)
[2017-10-09] MEDS: FINASTERIDE 5 MG TABLET. PO (08:58)
[2017-10-09] MEDS: ASCORBIC ACID 500 MG TABLET PO (08:58)
[2017-10-09] MEDS: MEGESTROL 400 MG/10 ML ORAL.SUSP. PO (08:59)
[2017-10-09] MEDS: NYSTATIN 100,000 UNITS/ML 5 ML ORAL.SUSP. SWSW ×4 (08:59→20:47)
[2017-10-09] MEDS: FERROUS SULFATE 325 MG TABLET. PO (08:59)
[2017-10-09] MEDS: DULoxetine HCL 20 MG CAPSULE.DR PO (08:59)
[2017-10-09] MEDS: PREGABALIN 25 MG CAPSULE PO ×2 (08:59→20:47)
[2017-10-09] MEDS: HYDROcodone/APAP 5/325MG 1 TAB TABLET PO ×3 (09:00→20:46)
[2017-10-09] MEDS: INSULIN LISPRO 300 UNITS/3 ML INSULN.PEN. SQ ×3 (09:14→17:46)
[2017-10-09] MEDS: VANCOMYCIN 125 MG/2.5 ML ORAL SOLUTION. PO ×4 (09:14→20:47)
[2017-10-09] MEDS: MICAFUNGIN 100 MG in IV NORMAL SALINE 100ML 100 ML IV (10:39)
[2017-10-09 12:02] LABS: POC GLUCOSE 186 mg/dL (70-99)
[2017-10-09] MEDS: IV DEXTROSE 10% 1,000 ML IV (16:00)
[2017-10-09] MEDS: WARFARIN 4 MG TABLET. PO (16:15)
[2017-10-09 16:55] LABS: POC GLUCOSE 184 mg/dL (70-99)
[2017-10-09 20:57] LABS: POC GLUCOSE 134 mg/dL (70-99)
[2017-10-09] MEDS: ONDANSETRON PF 4 MG/2 ML VIAL. IV (22:26)
[2017-10-09] MEDS: ALPRAZolam 0.25 MG TABLET PO (22:52)
[2017-10-10] MEDS: MORPHINE SULFATE 4 MG/ML DISP.SYRIN. IV ×4 (02:53→21:31)
[2017-10-10] MEDS: AMINO AC 3%/ELECTROLYTE/GLYCER 1,000 ML IV (05:56)
[2017-10-10] MEDS: PIPERACILLIN/TAZOBACTAM 2.25 GM in IV NORMAL SALINE 50ML 50 ML IV ×3 (05:58→22:14)
[2017-10-10] MEDS: METOPROLOL TART IMMED RELEASE 25 MG TABLET. PO ×4 (05:59→23:33)
[2017-10-10] MEDS: HEPARIN PF for SUB-Q USE 5,000 UNIT/0.5 ML VIAL. SQ (06:25)
[2017-10-10 06:32] LABS: ADD MAN DIFF? NO
[2017-10-10 06:39] LABS: BASO % 0 % (0-3); EOS # 0.2 x10^3/uL (0.0-0.7); EOS % 1 % (0-3); HEMATOCRIT 27.2 % (39.0-53.0); HEMOGLOBIN 8.6 g/dL (13.0-17.5); LYMPH # 6.9 x10^3/uL (1.0-4.8); LYMPH % 28 % (24-48); MEAN CORPUSCULAR HEMOGLOBIN 26 pg (25-35); MEAN CORPUSCULAR HGB CONC 32 g/dL (31-37); MEAN CORPUSCULAR VOLUME 82 fL (79-100); MONO # 1.5 x10^3/uL (0.0-1.1); MONO % 6 % (0-9); NEUT # 15.9 x10^3uL (1.8-7.7); NEUT % 65 % (31-73); PLATELET COUNT 283 x10^3/uL (140-400); RED BLOOD COUNT 3.32 x10^6/uL (4.30-5.70); WHITE BLOOD COUNT 24.5 x10^3/uL (4.0-11.0)
[2017-10-10 06:42] LABS: PROTHROMBIN TIME PATIENT 21.6 SEC (11.7-14.0)
[2017-10-10 07:43] LABS: POC GLUCOSE 220 mg/dL (70-99)
[2017-10-10] MEDS: INSULIN LISPRO 300 UNITS/3 ML INSULN.PEN. SQ ×4 (08:00→23:41)
[2017-10-10] MEDS: NYSTATIN 100,000 UNITS/ML 5 ML ORAL.SUSP. SWSW ×4 (09:00→22:14)
[2017-10-10] MEDS: VANCOMYCIN 125 MG/2.5 ML ORAL SOLUTION. PO ×4 (09:00→22:13)
[2017-10-10] MEDS: CALCIUM CARBONATE 500 MG TABLET PO ×3 (09:00→22:13)
[2017-10-10] MEDS ORDERED: IV NORMAL SALINE 1000ML BAG 1,000 ML IV (11:28)
[2017-10-10] MEDS ORDERED: DIALYSIS PATIENT. MC ×2 (11:30)
[2017-10-10] MEDS: VITS A & D/LANOLIN TOPICAL OINTMENT 56GM TUBE. TP (14:06)
[2017-10-10] MEDS: NEOMY/BACITR/POLYMYXIN OINT PACKET. TP ×2 (14:07→22:14)
[2017-10-10] MEDS: PREGABALIN 25 MG CAPSULE PO ×2 (14:07→22:13)
[2017-10-10] MEDS: DULoxetine HCL 20 MG CAPSULE.DR PO (14:07)
[2017-10-10] MEDS: MEGESTROL 400 MG/10 ML ORAL.SUSP. PO (14:07)
[2017-10-10] MEDS: LACTOBACILLUS RHAMNOSUS GG 1 CAPSULE. PO ×2 (14:08→22:13)
[2017-10-10] MEDS: FINASTERIDE 5 MG TABLET. PO (14:08)
[2017-10-10] MEDS: FERROUS SULFATE 325 MG TABLET. PO (14:08)
[2017-10-10] MEDS: PANTOPRAZOLE IV PUSH 40 MG VIAL. IVP (14:08)
[2017-10-10] MEDS: FOLIC/VIT B COMP W-C (RENAL) TABLET. PO (14:08)
[2017-10-10] MEDS: ASCORBIC ACID 500 MG TABLET PO (14:08)
[2017-10-10] MEDS: MICAFUNGIN 100 MG in IV NORMAL SALINE 100ML 100 ML IV (14:10)
[2017-10-10] MEDS: WARFARIN 4 MG TABLET. PO (14:47)
[2017-10-10] MEDS: HYDROcodone/APAP 5/325MG 1 TAB TABLET PO ×2 (14:48→22:14)
[2017-10-10 17:07] LABS: POC GLUCOSE 71 mg/dL (70-99)
[2017-10-10 18:28] LABS: POC GLUCOSE 199 mg/dL (70-99)
[2017-10-10 23:42] LABS: POC GLUCOSE 236 mg/dL (70-99)
[2017-10-11] MEDS: ALPRAZolam 0.25 MG TABLET PO (00:03)
[2017-10-11] MEDS: MORPHINE SULFATE 4 MG/ML DISP.SYRIN. IV ×2 (00:03→01:43)
[2017-10-11] MEDS: HYDROcodone/APAP 5/325MG 1 TAB TABLET PO (01:44)
[2017-10-11] MEDS: PIPERACILLIN/TAZOBACTAM 2.25 GM in IV NORMAL SALINE 50ML 50 ML IV ×2 (05:25→12:30)
[2017-10-11 05:49] LABS: BASO # 0.1 x10^3/uL (0.0-0.2); BASO % 0 % (0-3); EOS # 0.1 x10^3/uL (0.0-0.7); EOS % 0 % (0-3); HEMATOCRIT 26.7 % (39.0-53.0); HEMOGLOBIN 8.4 g/dL (13.0-17.5); LYMPH % 29 % (24-48); MEAN CORPUSCULAR HEMOGLOBIN 26 pg (25-35); MEAN CORPUSCULAR HGB CONC 31 g/dL (31-37); MEAN CORPUSCULAR VOLUME 83 fL (79-100); MONO # 1.9 x10^3/uL (0.0-1.1); MONO % 8 % (0-9); NEUT # 15.5 x10^3uL (1.8-7.7); NEUT % 63 % (31-73); PLATELET COUNT 295 x10^3/uL (140-400); RED BLOOD COUNT 3.22 x10^6/uL (4.30-5.70); RED CELL DISTRIBUTION WIDTH 18.2 % (11.5-14.5); WHITE BLOOD COUNT 24.6 x10^3/uL (4.0-11.0)
[2017-10-11 05:54] LABS: ADD MAN DIFF? YES
[2017-10-11] MEDS: METOPROLOL TART IMMED RELEASE 25 MG TABLET. PO ×3 (06:00→16:50)
[2017-10-11] MEDS: INSULIN LISPRO 300 UNITS/3 ML INSULN.PEN. SQ ×3 (06:00→17:22)
[2017-10-11 06:27] LABS: POC GLUCOSE 186 mg/dL (70-99)
[2017-10-11] MEDS: PANTOPRAZOLE IV PUSH 40 MG VIAL. IVP (07:30)
[2017-10-11] MEDS: FOLIC/VIT B COMP W-C (RENAL) TABLET. PO (08:35)
[2017-10-11] MEDS: MEGESTROL 400 MG/10 ML ORAL.SUSP. PO (08:35)
[2017-10-11] MEDS: LANSOPRAZOLE 30 MG TAB.RAP.DR PEG (08:35)
[2017-10-11] MEDS: LACTOBACILLUS RHAMNOSUS GG 1 CAPSULE. PO (08:35)
[2017-10-11] MEDS: DULoxetine HCL 20 MG CAPSULE.DR PO (08:35)
[2017-10-11] MEDS: FERROUS SULFATE 325 MG TABLET. PO (08:35)
[2017-10-11] MEDS: NYSTATIN 100,000 UNITS/ML 5 ML ORAL.SUSP. SWSW ×3 (08:35→17:22)
[2017-10-11] MEDS: PREGABALIN 25 MG CAPSULE PO (08:35)
[2017-10-11] MEDS: CALCIUM CARBONATE 500 MG TABLET PO ×3 (08:35→17:22)
[2017-10-11] MEDS: FINASTERIDE 5 MG TABLET. PO (08:35)
[2017-10-11] MEDS: ASCORBIC ACID 500 MG TABLET PO (08:35)
[2017-10-11] MEDS: VANCOMYCIN 125 MG/2.5 ML ORAL SOLUTION. PO ×3 (08:36→17:22)
[2017-10-11] MEDS: MICAFUNGIN 100 MG in IV NORMAL SALINE 100ML 100 ML IV (08:37)
[2017-10-11] MEDS: NEOMY/BACITR/POLYMYXIN OINT PACKET. TP (08:58)
[2017-10-11 10:54] LABS: % LYMPHS 27 % (24-48); % MONOS 7 % (0-10); % SEGS 66 % (35-66); ANISOCYTOSIS SLIGHT; NUCLEATED RBC 1; PLT ESTIMATE ADEQUATE (ADEQUATE)
[2017-10-11 10:55] LABS: SPHEROCYTES OCC
[2017-10-11] MEDS: AMINO AC 3%/ELECTROLYTE/GLYCER 1,000 ML IV (12:29)
[2017-10-11 14:21] LABS: POC GLUCOSE 197 mg/dL (70-99)
[2017-10-11] MEDS: WARFARIN 4 MG TABLET. PO (17:22)
[2017-10-11 17:53] LABS: POC GLUCOSE 184 mg/dL (70-99)
== END 2017-10-11 17:45 | disposition expired | DRG 474 ==
LOC: 2 NORTH 10-01 07:31 → ER 18:57 → 4 NORTH 09-29 15:11
PROC: 0Y6D0Z3 Detachment at Left Upper Leg, Low, Open Approach (ICD-10-PCS; principal; 2017-10-05 12:00)
PROC: 0Y6C0Z3 Detachment at Right Upper Leg, Low, Open Approach (ICD-10-PCS; 2017-10-05 12:00)
PROC: 02H633Z Insertion of Infusion Device into Right Atrium, Percutaneous Approach (ICD-10-PCS; 2017-10-05 12:15)
PROC: B2141ZZ Fluoroscopy of Right Heart using Low Osmolar Contrast (ICD-10-PCS; 2017-10-05 12:15)
PROC: B244ZZZ Ultrasonography of Right Heart (ICD-10-PCS; 2017-10-05 12:15)
PROC: 30233K1 Transfusion of Nonautologous Frozen Plasma into Peripheral Vein, Percutaneous Approach (ICD-10-PCS; 2017-10-05 12:15)
PROC: 30233N1 Transfusion of Nonautologous Red Blood Cells into Peripheral Vein, Percutaneous Approach (ICD-10-PCS; 2017-10-05 12:15)
PROC: 30233P1 Transfusion of Nonautologous Frozen Red Cells into Peripheral Vein, Percutaneous Approach (ICD-10-PCS; 2017-10-05 12:15)
PROC: 5A1D70Z Performance of Urinary Filtration, Intermittent, Less than 6 Hours Per Day (ICD-10-PCS; 2017-10-05 12:15)
PROC: 5A1D70Z Performance of Urinary Filtration, Intermittent, Less than 6 Hours Per Day (ICD-10-PCS; 2017-10-05 12:15)
PROC: 5A1D70Z Performance of Urinary Filtration, Intermittent, Less than 6 Hours Per Day (ICD-10-PCS; 2017-10-05 12:15)
PROC: 5A1D70Z Performance of Urinary Filtration, Intermittent, Less than 6 Hours Per Day (ICD-10-PCS; 2017-10-05 12:15)
PROC: 5A1D70Z Performance of Urinary Filtration, Intermittent, Less than 6 Hours Per Day (ICD-10-PCS; 2017-10-05 12:15)
PROC: 5A1D70Z Performance of Urinary Filtration, Intermittent, Less than 6 Hours Per Day (ICD-10-PCS; 2017-10-05 12:15)
DX: T87.44 Infection of amputation stump, left lower extremity (principal); A41.9 Sepsis, unspecified organism; L89.153 Pressure ulcer of sacral region, stage 3; G93.41 Metabolic encephalopathy; N18.6 End stage renal disease; E43 Unspecified severe protein-calorie malnutrition; T81.30XA Disruption of wound, unspecified, initial encounter; D68.9 Coagulation defect, unspecified; I13.2 Hypertensive heart and chronic kidney disease with heart failure and with stage 5 chronic kidney disease, or end stage renal disease; E11.52 Type 2 diabetes mellitus with diabetic peripheral angiopathy with gangrene; I50.32 Chronic diastolic (congestive) heart failure; I96 Gangrene, not elsewhere classified; A04.72 Enterocolitis due to Clostridium difficile, not specified as recurrent; Z66 Do not resuscitate; Y83.5 Amputation of limb(s) as the cause of abnormal reaction of the patient, or of later complication, without mention of misadventure at the time of the procedure; F03.90 Unspecified dementia, unspecified severity, without behavioral disturbance, psychotic disturbance, mood disturbance, and anxiety; N40.0 Benign prostatic hyperplasia without lower urinary tract symptoms; I69.320 Aphasia following cerebral infarction; J45.909 Unspecified asthma, uncomplicated; E11.22 Type 2 diabetes mellitus with diabetic chronic kidney disease; E11.42 Type 2 diabetes mellitus with diabetic polyneuropathy; K21.9 Gastro-esophageal reflux disease without esophagitis; F32.9 Major depressive disorder, single episode, unspecified; F41.9 Anxiety disorder, unspecified; I48.2 Chronic atrial fibrillation; D63.1 Anemia in chronic kidney disease; E11.649 Type 2 diabetes mellitus with hypoglycemia without coma; E11.65 Type 2 diabetes mellitus with hyperglycemia; E66.01 Morbid (severe) obesity due to excess calories; E78.5 Hyperlipidemia, unspecified; G89.29 Other chronic pain; I25.10 Atherosclerotic heart disease of native coronary artery without angina pectoris; K57.90 Diverticulosis of intestine, part unspecified, without perforation or abscess without bleeding; M19.90 Unspecified osteoarthritis, unspecified site; Z51.5 Encounter for palliative care; Z88.8 Allergy status to other drugs, medicaments and biological substances; Y92.89 Other specified places as the place of occurrence of the external cause; Z99.2 Dependence on renal dialysis; Z83.3 Family history of diabetes mellitus; Z82.49 Family history of ischemic heart disease and other diseases of the circulatory system; Z95.0 Presence of cardiac pacemaker; Z68.26 Body mass index [BMI] 26.0-26.9, adult
CPT/HCPCS: 36415; 36556; 70450; 71045; 73552; 74018; 76937; 77001; 80048; 80053; 80202; 82306; 82947; 82962; 83605; 83735; 84132; 84145; 84443; 84484; 85007; 85025; 85027; 85610; 86706; 86850; 86900; 86901; 86922; 86927; 87040; 87071; 87075; 87186; 87205; 87324; 87340; 87641; 88305; 88311; 93005; 94760; 95816; 96365; 99285; 99285-25; C1892; C9113; J0881; J1160; J1815; J1956; J2001; J2020; J2248; J2270; J2370; J2405; J2543; J2704; J3010; J3370; J3430; J3490; J7030; J7040; J7042; P9016; P9017